=== PATIENT | male | born 1960 | race Caucasian/White ===

== ENCOUNTER 2023-08-10 07:55 | Outpatient (OUT) | payer OTHER, SELFPAY ==
[2023-08-10 08:31] LABS: Estimated Average Glucose 180 mg/dL; Glycohemoglobin A1C 7.9 % (4.5-6.2)
[2023-08-10 12:57] LABS: Prostate Specific Antigen Dx 1.15 ng/mL (<=4.00)
== END 2023-08-10 07:56 | disposition home or self-care (01) ==
PROVIDERS: PCP Family Medicine; Visit Provider Family Medicine
DX: E11.65 Type 2 diabetes mellitus with hyperglycemia (principal); Z12.5 Encounter for screening for malignant neoplasm of prostate
CPT/HCPCS: 36415; 83036; 84153

== ENCOUNTER 2024-01-25 08:10 | Outpatient (OUT) | payer OTHER, SELFPAY ==
--- OUTSIDE RECORDS SUMMARY | 2024-01-25 08:15 | XMS_ITS | CCD ---
Author Organization [facility] Care Team Providers Care Printing Bindery Assistant Name Role Phone MEGAN MATIAS Unavailable Unavailable NADERERROBERTO Unavailable Unavailkam e MEGAN MATIAS Unavailable Unavailable MEGAN MATIAS Unavailable Unavailable NADERER, ROBERTO METZ Unavailable Unavailabl e NADERER, DR ROBERTO Esteves Primary Care Unavailable BRIGIDO, DR LLOYD Attending Unavailable BRIGIDO, DR LLOYD Admitting Unavailable NADERER, DR ROBERTO Esteves Consulting Unavailable NADERER, DR ROBERTO Esteves Primary Care Unavailable NADERER, DR ROBERTO Esteves Admitting Unavailable NADERER, DR ROBERTO Esteves Attending Unavailable NADERER, DR ROBERTO Esteves Attending Unavailable NADERER, DR ROBERTO Esteves Consulting Unavailable NADERER, DR ROBERTO Esteves Primary Care Unavailable NADERER, DR ROBERTO Esteves Admitting Unavailable EBEN, Ivanna Morgan Attending Unavailable EBEN, LAWRENCE Morgan Admitting Unavailable KIAH, Gabe Attending Unavailable EBEN, Ivanna Morgan Attending Unavailable NADERER, ROBERTO Attending Unavailable NADERER, ROBERTO Attending Unavailable Allergies Allergy Classification Reported Allergen(s) Allergy Type Date of Onset Reaction(s) Facility (1 source) Angiotensin Converting Enzyme (Latrell) Inhibitors Drug allergy (disorder) 03-01-2016 [facility] Problems Active Problems Problem Classification Problem Date Documented Da te Episodic/Chronic Diabetes mellitus with complications (5 sources) Type 2 diabetes mellitus with hyperglycemia; Translations: [TYPE 2 DM W/HYPERGLYCEMIA] Onset: 04-22-2022 Chronic Nutritional deficiencies (1 source) Vitamin D deficiency, unspecified; Translations: [VITAMIN D DEFICIENCY UNSPECIFIED] Onset: 04-22-2022 Chronic Past or Other Problems Problem Classification Problem Date Documented Date Episodic/Chronic Medical examination/evaluatio n (2 sources) Encounter for other preprocedural examination; Translations: [Encounter for other preprocedural examination] Onset: 10-09-2017 Episodic Other nervous system disorders (1 source) Other acute postprocedural pain; Translations: [Other acute postprocedural pain] Onset: 10-21-2017 Episodic Results Test Name Value Interpretation Reference Range Facility [place] 03-07-2023 Consent [id number]#1.00CD:12 7 [facility] Registrationon 03-07-2023 Registration [id number]#1.00CD:12 7 [facility] [place] 12-17-2022 Consent [id number]#1.00CD:1 27 [facility] In office Testingon 12-18-19 23 In office Testing [id number]#1.00CD:12 7 [facility] In office Testing [id number]#1.00CD:12 7 [facility] Registrationon 12-17-2022 Registration [id number]#1.00CD:1 27 [facility] GLYCOHEMOGLOBIN A1Con 2022 ADA RECOMMENDATION SEE BELOW Normal [facility] Comment on above: Result Comment: ADA RECOMMENDED LIMIT 4.0 - 6.0 ADA THERAPEUTIC TARGET < 7.0 ACTION SUGGESTED > 7.0 Performed By: #### A 1C #### [facility] [address] [address] [address] Kelton Ludwig Glucose [Mass/Vol] 263 mg/dL Normal [facility] Comment on above: Performed By: #### A 1C #### [facility] [address], [place] [address] Dr. Kelton Ludwig HbA1c (Bld) [Mass fraction] 10.8 % Critically high 4.5-6.2 [facility] Comment on above: Performed By: #### A 1C #### [facility] [address] [address] [address] Kelton Ludwig [place] 06-18-2022 Consent [id number]#1.00CD:12 7 Normal [facility] In office Testingon 06-18-20 22 In office Testing [id number]#1.00CD:1 27 Normal [facility] Registrationon 06-18-2022 Registration [id number]#1.00CD:12 7 Normal [facility] MICROALBUMIN URINEon 022 Albumin, Urine 32.3 ug/mL Normal Not Estab. [facility] Comment on above: Performed By: #### M ALBLC #### [facility] [address] [address] [address] Kelton Ludwig VIT D 25-OH LABCORPon 2021 Vitamin D, 25-Hydroxy 37.9 ng/mL Normal 30.0-100.0 [facility] Comment on above: Result Comment: Hemalatha min D deficiency has been defined by the [place] of Medicine and an Endocrine Society practice guideline as a level of serum 25-OH vitamin D less than 20 ng/mL (1,2). The Endocrine Society went on to further define vitamin D insufficiency as a level between 21 and 29 ng/mL (2). 1. IOM ([place] of Medicine). 2010. Dietary reference intakes for calcium and D. [place]: The National Academies Press. 2. German MF, Arturo NC, Dolores WAYNE, et al. Evaluation, treatment, and prevention of vitamin D deficiency: an Endocrine Society clinical practice guideline. JCEM. 2010; 96(7):1911-30. Performed By: #### V ITADLC #### [facility] [address], [place] [address] Dr. Kelton Ludwig CBC AUTO DIFFon 04-19-2022 BASO # 0.0 103/ul Normal 0.0-0.1 [facility] Comment on above: Performed By: #### C BC #### [facility] [address], [place] [address] Dr. Kelton Ludwig Basophils/100 WBC (Bld) 0.6 % Normal 0.2-2.0 [facility] Comment on above: Performed By: #### C BC #### [facility] [address] [place] [address] Dr. Kelton Ludwig EO # 0.3 103/ul Normal 0.0-0.7 [facility] Comment on above: Performed By: #### C BC #### [facility] [address] [place] [address] Dr. Kelton Ludwig Eosinophils/100 WBC (Bld) 3.5 % Normal 0.9-7.0 [facility] Comment on above: Performed By: #### C BC #### [facility] [address] [place] [address] Dr. Kelton Ludwig Erythrocyte distribution width (RBC) [Ratio] 12.6 % Normal 11.0-15.0 [facility] Comment on above: Performed By: #### C BC #### [facility] [address] [place] [address] Dr. Kelton Ludwig Hematocrit (Bld) [Volume fraction] 44.6 % Normal 42.0-54.0 [facility] Comment on above: Performed By: #### C BC #### [facility] [address] [place] [address] Dr. Kelton Ludwig Hemoglobin (Bld) [Mass/Vol] 14.1 g/dL Normal 14.0-18.0 [facility] Comment on above: Performed By: #### C BC #### [facility] [address] [place] [address] Dr. Kelton Ludwig IG # 0.03 10e3/ul Normal 0.00-0.03 [facility] Comment on above: Performed By: #### C BC #### [facility] [address] [place] [address] Dr. Kelton Ludwig IG % 0.4 % Normal 0.0-0.5 [facility] Comment on above: Performed By: #### C BC #### [facility] [address] [place] [address] Dr. Kelton Ludwig LYMPH # 1.2 103/ul Normal 1.2-3.8 [facility] Comment on above: Performed By: #### C BC #### [facility] [address] [place] [address] Dr. Kelton Ludwig Lymphocytes/100 WBC (Bld) 16.9 % Critically low 20.5-60.0 [facility] Comment on above: Performed By: #### C BC #### [facility] [address] [place] [address] Dr. Kelton Ludwig MANUAL DIFF REQ NO Normal [facility] Comment on above: Performed By: #### C BC #### [facility] [address] [place] [address] Dr. Kelton Ludwig MCH (RBC) [Entitic mass] 29.7 pg Normal 25.9-34.0 [facility] Comment on above: Performed By: #### C BC #### [facility] [address] [place] [address] Dr. Kelton Ludwig MCHC (RBC) [Mass/Vol] 31.6 g/dL Normal 29.9-35.2 [facility] Comment on above: Performed By: #### C BC #### [facility] [address] [place] [address] Dr. Kelton Ludwig MCV (RBC) [Entitic vol] 94.1 fL Critically high 80.0-94.0 [facility] Comment on above: Performed By: #### C BC #### [facility] [address] [place] [address] Dr. Kelton Ludwig MONO # 0.5 103/ul Normal 0.3-0.8 [facility] Comment on above: Performed By: #### C BC #### [facility] [address] [place] [address] Dr. Kelton Ludwig Monocytes/100 WBC (Bld) 7.3 % Normal 1.7-12.0 [facility] Comment on above: Performed By: #### C BC #### [facility] [address] [place] [address] Dr. Kelton Ludwig NEUT # 5.1 103/ul Normal 1.4-6.5 [facility] Comment on above: Performed By: #### C BC #### [facility] [address] [address] [address] Kelton Ludwig Neutrophils/100 WBC (Bld) 71.3 % Normal 43.0-75.0 [facility] Comment on above: Performed By: #### C BC #### [facility] [address] [address] [address] Kelton Ludwig Platelet mean volume (Bld) [Entitic vol] 10.3 fL Normal 9.5-13.5 [facility] Comment on above: Performed By: #### C BC #### [facility] [address] [address] [address] Kelton Ludwig PLT 221 103/ul Normal 150-450 [facility] Comment on above: Performed By: #### C BC #### [facility] [address] [place] [address] Dr. Kelton Ludwig RBC 4.74 106/ul Normal 4.70-6.10 [facility] Comment on above: Performed By: #### C BC #### [facility] [address] [place] [address] Dr. Kelton Ludwig WBC 7.1 103/ul Normal 4.0-11.0 [facility] Comment on above: Performed By: #### C BC #### [facility] [address] [place] [address] Dr. Kelton Ludwig GLYCOHEMOGLOBIN A1Con 2021 ADA RECOMMENDATION SEE BELOW Normal [facility] Comment on above: Result Comment: ADA RECOMMENDED LIMIT 4.0 - 6.0 ADA THERAPEUTIC TARGET < 7.0 ACTION SUGGESTED > 7.0 Performed By: #### A 1C #### [facility] [address] [place] [address] Dr. Kelton Ludwig Glucose [Mass/Vol] 194 mg/dL Normal [facility] Comment on above: Performed By: #### A 1C #### [facility] [address] [place] [address] Dr. Kelton Ludwig HbA1c (Bld) [Mass fraction] 8.4 % Critically high 4.5-6.2 [facility] Comment on above: Performed By: #### A 1C #### [facility] [address] [address] [address] Kelton Ludwig LIPID PROFILEon 04-19-2022 CHOL-HDL RATIO NORM SEE BELOW Normal [facility] Comment on above: Result Comment: 3.3 - 4.4 LOW RISK 4.4 - 7.1 AVERAGE RISK 7.1 - 11.0 MODERATE RISK >11.0 HIGH RISK Performed By: #### T SH, LIPID, BMP, LIVER #### [facility] [address] [address] [address] Kelton Ludwig Cholesterol [Mass/Vol] 179 mg/dL Normal <=200 [facility] Comment on above: Performed By: #### T SH, LIPID, BMP, LIVER #### [facility] [address] [address] [address] Kelton Ludwig Cholesterol in HDL [Mass/Vol] 49 mg/dL Normal 40-60 [facility] Comment on above: Performed By: #### T SH, LIPID, BMP, LIVER #### [facility] [address] [address] [address] Kelton Ludwig Cholesterol in LDL [Mass/Vol] 118.4 mg/dL Normal [facility] Comment on above: Performed By: #### T SH, LIPID, BMP, LIVER #### [facility] [address] [address] [address] Kelton Ludwig Cholesterol.total/C holesterol in HDL [Mass ratio] 3.7 {ratio} Normal [facility] Comment on above: Performed By: #### T SH, LIPID, BMP, LIVER #### [facility] [address] [address] [address] Kelton Ludwig HDL NORMAL > or = 60 mg/dl - LO W CARDIOVASCULAR RISK <40 mg/dl - HIGH CARDIOVASCULAR RISK Normal [facility] Comment on above: Performed By: #### T SH, LIPID, BMP, LIVER #### [facility] [address] [address] [address] Kelton Ludwig LDL CALC NORMAL SEE BELOW Normal [facility] Comment on above: Result Comment: <100 mg/dl OPTIMAL 100 - 129 mg/dl NEAR OR ABOVE OPTIMAL 130 - 159 mg/dl BORDERLINE HIGH 160 - 189 mg/dl HIGH >190 mg/dl VERY HIGH Performed By: #### T SH, LIPID, BMP, LIVER #### [facility] [address] [place] [address] Dr. Kelton Ludwig Triglyceride [Mass/Vol] 58 mg/dL Normal <=150 [facility] Comment on above: Performed By: #### T SH, LIPID, BMP, LIVER #### [facility] [address] [place] [address] Dr. Kelton Ludwig VLDL CALC 11.6 mg/dL Normal [facility] Comment on above: Performed By: #### T SH, LIPID, BMP, LIVER #### [facility] [address] [place] [address] Dr. Kelton Ludwig LIVER PROFILEon 04-19-2022 Albumin [Mass/Vol] 3.8 g/dL Normal 3.4-5.0 [facility] Comment on above: Performed By: #### T SH, LIPID, BMP, LIVER #### [facility] [address] [place] [address] Dr. Kelton Ludwig Albumin/Globulin [Mass ratio] 1.3 {ratio} Normal [facility] Comment on above: Performed By: #### T SH, LIPID, BMP, LIVER #### [facility] [address] [place] [address] Dr. Kelton Ludwig ALP [Catalytic activity/Vol] 51 U/L Normal 46-116 [facility] Comment on above: Performed By: #### T SH, LIPID, BMP, LIVER #### [facility] [address] [place] [address] Dr. Kelton Ludwig ALT [Catalytic activity/Vol] 18 U/L Normal 16-63 [facility] Comment on above: Performed By: #### T SH, LIPID, BMP, LIVER #### [facility] [address] [place] [address] Dr. Kelton Ludwig AST [Catalytic activity/Vol] 12 U/L Critically low 15-37 [facility] Comment on above: Performed By: #### T SH, LIPID, BMP, LIVER #### [facility] [address] [place] [address] Dr. Kelton Ludwig BILI, CONJUGATED 0.2 mg/dL Normal 0.0-0.2 [facility] Comment on above: Performed By: #### T SH, LIPID, BMP, LIVER #### [facility] [address] [place] [address] Dr. Kelton Ludwig Bilirubin [Mass/Vol] 0.6 mg/dL Normal 0.2-1.0 [facility] Comment on above: Performed By: #### T SH, LIPID, BMP, LIVER #### [facility] [address] [place] [address] Dr. Kelton Ludwig Globulin (S) [Mass/Vol] 3.0 g/dL Normal [facility] Comment on above: Performed By: #### T SH, LIPID, BMP, LIVER #### [facility] [address] [place] [address] Dr. Kelton Ludwig Protein [Mass/Vol] 6.8 g/dL Normal 6.4-8.[address] [facility] Comment on above: Performed By: #### T SH, LIPID, BMP, LIVER #### [facility] [address] [place] [address] Dr. Kelton Ludwig PROF CHEM 8 (BAS METB)on Anion gap [Moles/Vol] 8.2 mmol/L Normal [facility] Comment on above: Performed By: #### T SH, LIPID, BMP, LIVER #### [facility] [address] [place] [address] Dr. Kelton Ludwig Calcium [Mass/Vol] 8.9 mg/dL Normal 8.5-10.[address] [facility] Comment on above: Performed By: #### T SH, LIPID, BMP, LIVER #### [facility] [address] [place] [address] Dr. Kelton Ludwig Chloride [Moles/Vol] 104 mmol/L Normal 98-107 [facility] Comment on above: Performed By: #### T SH, LIPID, BMP, LIVER #### [facility] [address] [address] [address] Kelton Ludwig CO2 [Moles/Vol] 31.2 mmol/L Normal 21.0-32.0 [facility] Comment on above: Performed By: #### T SH, LIPID, BMP, LIVER #### [facility] [address] [address] [address] Kelton Ludwig Creatinine [Mass/Vol] 1.08 mg/dL Normal 0.70-1.30 [facility] Comment on above: Performed By: #### T SH, LIPID, BMP, LIVER #### [facility] [address] [address] [address] Kelton Ludwig EGFR-AF NIGERIAN >60 Normal >=60 [facility] Comment on above: Performed By: #### T SH, LIPID, BMP, LIVER #### [facility] [address] [place] [address] Dr. Kelton Ludwig EGFR-NON AF NIGERIAN >60 Normal >=60 [facility] Comment on above: Performed By: #### T SH, LIPID, BMP, LIVER #### [facility] [address] [address] [address] Kelton Ludwig Glucose [Mass/Vol] 171 mg/dL Critically high 74-106 [facility] Comment on above: Performed By: #### T SH, LIPID, BMP, LIVER #### [facility] [address] [address] [address] Kelton Ludwig Potassium [Moles/Vol] 4.4 mmol/L Normal 3.5-5.1 [facility] Comment on above: Performed By: #### T SH, LIPID, BMP, LIVER #### [facility] [address] [address] [address] Kelton Ludwig Sodium [Moles/Vol] 139 mmol/L Normal 136-145 [facility] Comment on above: Performed By: #### T SH, LIPID, BMP, LIVER #### [facility] [address] [address] [address] Kelton Ludwig Urea nitrogen [Mass/Vol] 20.0 mg/dL Critically high 7.0-18.0 [facility] Comment on above: Performed By: #### T SH, LIPID, BMP, LIVER #### [facility] [address], [place] [address] Dr. Kelton Ludwig Urea nitrogen/Creatinine [Mass ratio] 18.5 mg/mg Normal [facility] Comment on above: Performed By: #### T SH, LIPID, BMP, LIVER #### [facility] [address], [place] [address] Dr. Kelton Ludwig TSHon 04-19-2022 TSH 0.837 uIU/mL Normal 0.358-3.740 [facility] Comment on above: Performed By: #### T SH, LIPID, BMP, LIVER #### [facility] [address], [place] [address] Dr. Kelton Ludwig Progress Noteon 03-31-2018 HIM IP Note OR Global Account Director Normal [facility] HIM IP Note OR Global Account Director Normal [facility] Progress Noteon 01-03-2018 HIM IP Note OR Global Account Director Normal [facility] Progress Noteon 12-23-2017 HIM IP Note OR Global Account Director Normal [facility] Progress Noteon 12-09-2017 HIM IP Note OR Global Account Director Normal [facility] Progress Noteon 12-06-2017 HIM IP Note OR Global Account Director Normal [facility] Discharge Summaryon 10-23-19 18 HIM IP Note OR Global Account Director Normal [facility] Plan of Careon 10-22-2017 HIM IP Note OR Global Account Director Normal [facility] HIM IP Note OR Global Account Director Normal [facility] Progress Noteon 10-22-2017 HIM IP Note OR Global Account Director Normal [facility] HIM IP Note OR Global Account Director Normal [facility] Interval History and Physion 10-21-2017 HIM IP Note OR Global Account Director Normal [facility] OPERATIVE REPORTon 8 OPERATIVE REPORT [address] [id number] OPERATIVE REPORTPATIENT NAME: SANTO PHIPPS : 1960[facility] REC NO: [id number] ROOM: [address] [place] [address] NO: [id number] ADMIT DATE: 10/21/2017PROVIDER: Megan Matias, MDDATE OF PROCEDURE: 10/21/2017SURGEON: Megan Matias MDASSISTANT: MARU DianaREOPERATIVE DIAGNOSES:1. Severe spinal stenosis, C6-C7, with left radiculopathy.2. Cervical myeloradiculopathy secondary to central stenosis.3. Morbid obesity, BMI 38.POSTOPERATIVE DIAGNOSES:1. Severe spinal stenosis, C6-C7, with left radiculopathy.2. Cervical myeloradiculopathy secondary to central stenosis.3. Morbid obesity, BMI 38.PROCEDURES PERFORMED:1. Anterior cervical diskectomy, C6-C7.2. Cervical osteophyte and foraminal decompression, C6-C7, left.3. Anterior cervical fusion, C6-C7.4. Coalition cage stabilization, C6-C7.5. Allograft with Osteocel Plus.INDICATIONS: The patient is a 57-year-old gentleman with significant pain,early myelopathy symptoms, and significant radiculopathy due to significantnarrowing stenosis across the C6-C7 level. Based on MRI scan, stenosiswith large hard disk herniation, significant narrowing of the canalresulting in moderately severe compression across the entire left cord.Due to significant pain and symptoms, failure of nonoperative treatmentprogram, presents for surgical treatment. Surgical procedure, risks,benefits, and complications were discussed with him with goodcomprehension, and informed consent obtained.NARRATIVE OF PROCEDURE: The patient was brought to the operating room,placed under appropriate general anesthesia, transferred to the operatingtable in the supine position. Towel roll was placed under the neck andshoulders, arms secured at the side, and perioperative antibiotics givenprior to incision time. VTE prophylaxis done through SCD cuffs.Timeout performed. We identified his cricothyroid membrane, made incisionapproximately 2 cm below that. Skin incised sharply and bleederscoagulated. Dissection carried down trying to identify the underlyingtissue planes. The patient due to his morbid obesity had very large neck,significant soft tissue mass, with very hypertrophic tissues. We were ableto get down to the prevertebral space and try to identify the level basedon x-ray. Very difficult time visualizing, multiple films obtained, withvarious techniques to try to penetrate through the soft tissues. We hadarm slings tied to his hands to further provide traction, and we couldidentify just at the C5-C6 space. Our intraoperative x-ray confirmed thatas the level. So we then marked down to C6-C7. We then elevated thelongus colli off each margin and placed our table-mounted retractor tosecure that. We made sure the tracheoesophagus was well mobilized,midline, without tension.At this time, we then did annulotomy across the disk space and identifiedthe angle of the disk space. We then placed our Shiloh pins to mobilizethe space. We gently distracted that. Once the annulotomy done, we thendid a complete diskectomy removing all the endplate cartilage and disk fromthe uncinate joint, right and left, back to the posterior longitudinalligament. There was a cleft and rent through the area, midline asexpected. So we then went to the right side, used a 3-mm kevin to takedown the margins of the uncinate and the posterior margins of the superiorportion of 6. We also took down the superior portion of 7, the inferiorportion of 6, and then got to the PLL. Took down a portion of that to themidline and got to the cord. We then used the 3-mm kevin bur, withirrigation, to fully thin the entire osteophyte and mass pressure along theentire left les-cord. We took down the lateral fourth of the uncinatejoint also, this tracing out free. We then undercut with 1-mm Kerrison andpulled it away from the dura.Once we had a good decompression, we could easily pass the small elevatoraround the dura without any other fragments or remaining material.We then let our traction off our pins, measured the interspace, andselected a 7-mm size. We used the XXL implant due to the patient's largesize and obesity.We sized that to the seven, then rasped the endplates to get goodsubchondral bleeding bone, and we then packed that full of the Osteocelgraft. We used some of the autogenous pieces as an endplate pack. We thengently tamped it into position with a good fit and fixation. This openedup the neural foramen well. We then placed screws cephalad and caudal,securing it, and used a locking screw to lock into place. Final x-ray,again difficulty visualizing with several films, to identify the level. Wewere able to find the endplate, it seemed to be positioned well.At this time, there was no evidence of significant bleeding at all. Yoandyhen packed a little bit more graft anteriorly along the endplate. We thenclosed the platysma over a drain using 2-0 Vicryl. 4-0 Vicryl subcuticularin the skin. Dressing applied. The patient transferred to bed, awokenfrom anesthesia, and brought to recovery room.MEGAN MATIAS, MDD: 10/21/2017 10:38:52 [email or web address]#: [id number] Doc#: [id number]: Megan Matias MD Normal [facility] Op Noteon 10-21-2017 HIM IP Note OR Global Account Director Normal [facility] Progress Noteon 10-21-2017 HIM IP Note OR Global Account Director Normal [facility] HIM IP Note OR Global Account Director Normal [facility] HIM IP Note OR Global Account Director Normal [facility] XR CERVICAL SPINE 1 VWon XR CERVICAL SPINE 1 VW Radiology exam is complete. No Radiologist dictation. Please follow up with ordering provider. Final result Normal [facility] Protein mass conc EXAMINATION:1 VIEW O F THE CERVICAL SPINE10/21/2017 8:43 amCOMPARISON:None.HISTORY :ORDERING SYSTEM PROVIDED HISTORY: Fusion C6-7TECHNOLOGIST PROVIDED HISTORY:Reason for exam:->Fusion C6-7FINDINGS:Single cross-table lateral intraoperative radiograph of the cervical spinewas obtained. There is a radiopaque marker at the anterior aspect C5-C6disc. Straightening of the cervical spine. C5-C6 degenerative disc disease.The patient is intubated.IMPRESSION: Intraoperative radiograph of the cervical spine demonstrates marker at theanterior C5-C6 disc.Findings were discussed with nurse Osborne in the operative room at 8:49 a.m.on 10/21/2017Interpreted by:GLORIA Sheldonigned by:Judy Mendez MD3/19/18Final result Normal [facility] XR CERVICAL SPINE 1 VW Radiology exam is complete. No Radiologist dictation. Please follow up with ordering provider. Final result Normal [facility] BUN + Creatinineon 8 (cont.) Normal [facility] Comment on above: Result Comment: Aver age GFR for 50-59 years old: 93 mL/min/1.73sq mChronic Kidney Disease: <60 mL/min/1.73sq mKidney failure: <15 mL/min/1.73sq meGFR calculated using average adult body mass. Additional eGFR calculator available at:[email or web address]_[email or web address] [address] Performed By: #### B UNCRT, GLU, LYTE ####[facility] [address] [place] [id number] Creatinine mass conc 0.75 mg/dL Normal 0.70-1.20 [facility] Comment on above: Performed By: #### B UNCRT, GLU, LYTE ####[facility] [address] [place] [address] GFR, Amer >60 Normal >60 [facility] Comment on above: Performed By: #### B UNCRT, GLU, LYTE ####[facility] [address] [place] [address] GFR,non Amer >60 Normal >60 [facility] Comment on above: Performed By: #### B UNCRT, GLU, LYTE ####[facility] [address] [place] [address] Urea nitrogen mass conc 10 mg/dL Normal 6-20 [facility] Comment on above: Performed By: #### B UNCRT, GLU, LYTE ####[facility] [address] [place] [address] Staging: NOT REPORTED Normal [facility] Comment on above: Performed By: #### B UNCRT, GLU, LYTE ####[facility] [address] [place] [address] Electrolyteson 10-09-2017 Anion gap 3 molar conc 11 mmol/L Normal 9-17 [facility] Comment on above: Result Comment: [facility] [address] [place] [address] Performed By: #### B UNCRT, GLU, LYTE ####[facility] [address] [place] [address] Chloride molar conc 101 mmol/L Normal 98-107 [facility] Comment on above: Performed By: #### B UNCRT, GLU, LYTE ####[facility] [address] [place] [address] CO2 molar conc 27 mmol/L Normal 20-31 [facility] Comment on above: Performed By: #### B UNCRT, GLU, LYTE ####[facility] [address] [place] [address] Potassium molar conc 4.0 mmol/L Normal 3.7-5.3 [facility] Comment on above: Performed By: #### B UNCRT, GLU, LYTE ####[facility] [address] [place] [address] Sodium molar conc 139 mmol/L Normal 135-144 [facility] Comment on above: Performed By: #### B UNCRT, GLU, LYTE ####[facility] [address] [place] [address] Glucoseon 10-09-2017 Glucose mass conc 149 mg/dL High 70-99 [facility] Comment on above: Result Comment: [facility] [address] [place] [address] Performed By: #### B UNCRT, GLU, LYTE ####[facility] [address] [place] [address] History and Physicalon 10-09 HIM IP Note OR Global Account Director Normal [facility] Progress Noteon 10-09-2017 HIM IP Note OR Global Account Director Normal [facility] Encounters Encounter Date Encounter Type Care Provider Facility Start: 01-01-2024 End: 01-01-2024 ambulatory ROBERTO BANG Not Available Start: 10-16-2023 End: 10-16-2023 ambulatory ROBERTO BANG Not Available Start: 03-07-2023 End: 03-08-2023 ambulatory Gabe DUPONT [facility] Start: 12-17-2022 End: 12-18-2022 ambulatory Ivanna TREADWELL [facility] Start: 11-28-2022 End: 11-29-[address] ROBERTO BANG Facility:[facility] Start: 07-10-[address] ROBERTO BANG [facility]y:[facility] Start: 06-18-2022 End: 06-19-2022 ambulatory Ivanna TREADWELL [facility] Start: 04-22-2022 Encounter for genera l adult medical examination without abnormal findings DR ROBERTO BANG [facility] Start: 04-19-2022 End: 04-20-[address] ROBERTO BANG Facility:[facility] Start: 04-19-2022 End: 04-20-2022 Encounter for general adult medical examination without abnormal findings DR ROBERTO BANG Facility:[facility] Start: 10-21-2017 End: 10-22-2017 Evaluation and management of inpatient MEGAN MATIAS [facility] Start: 10-09-2017 End: 10-14-2017 Patient encounter MEGAN ESQUIVELJACOB [facility] Procedures Date Procedure Procedure Detail Performing Clinician Start: 04-19-[address] ROBERTO SANCHEZ Comment on above: Performed By: #### P [facility] #### [facility] [address] [place] [address] Dr. Kelton Ludwig Start: 10-22-2017 DISCHARGE PATIENT KAYLIN Lyons JOEL Start: 10-22-2017 POC GLUCOSE FINGERSTICK MEGAN ALVINSAIMA Start: 10-22-2017 POC GLUCOSE FINGERSTICK MEGAN MATIAS Start: 10-22-2017 INCENTIVE SPIROMETRY RT MEGAN MATIAS Start: 10-22-2017 INITIATE OXYGEN THER APY PROTOCOL MEGAN MATIAS Start: 10-22-2017 POC GLUCOSE FINGERSTICK MEGAN MATIAS Start: 10-21-2017 POC GLUCOSE FINGERSTICK MEGAN MATIAS Start: 10-21-2017 ENCOURAGE DEEP BREAT [place] AND COUGHING MEGAN MATIAS Start: 10-21-2017 INCENTIVE SPIROMETRY RT MEGAN MATIAS Start: 10-21-2017 IP CONSULT TO SOCIAL WORK MEGAN MATIAS Start: 10-21-2017 OT EVAL AND TREAT KAYLIN Lyons JOEL Start: 10-21-2017 PLACE INTERMITTENT P NEUMATIC COMPRESSION DEVICE MEGAN MATIAS Start: 10-21-2017 PT EVAL AND TREAT KAYLIN Lyons JOEL Start: 10-21-2017 PULSE OXIMETRY SPOT CHECK MEGAN MATIAS Start: 10-21-2017 REASON FOR NO CHEMIC AL VTE PROPHYLAXIS MEGAN MATIAS Start: 10-21-2017 DIET GENERAL VINCENT Start: 10-21-2017 FULL CODE VINCENT Start: 10-21-2017 INITIATE OXYGEN THER APY PROTOCOL MEGAN MATIAS Start: 10-21-2017 VITAL SIGNS VINCENT Start: 10-21-2017 POC GLUCOSE FINGERSTICK MEGAN MATIAS Start: 10-21-2017 PATIENT STATUS (FROM ED OR OR/PROCEDURAL) MEGAN MATIAS Start: 10-21-2017 TRANSFER PATIENT MEGAN MATIAS Start: 10-21-2017 Radex spine 1 view s pecify level MEGAN MATIAS Start: 10-21-2017 Radex spine 1 view s pecify level MEGAN MATIAS Start: 10-21-2017 POC GLUCOSE FINGERSTICK MEGAN MATIAS Start: 10-09-2017 BUN AND CREATININE BLAKE MATIAS Start: 10-09-2017 ELECTROLYTE PANEL KAYLIN MATIAS Start: 10-09-2017 GLUCOSE, RANDOM MEGAN MATIAS Start: 10-09-2017 NURSING COMMUNICATION T NATO MATIAS Start: 10-09-2017 EKG 12-LEAD VINCENT Payers Date Payer Category Payer Unknown [id number] 2022 Unknown [id number] 2014 Unknown [id number] 1960 Private Health Insurance [id number] Self-pay 1960 Unknown [id number] 2.16.84 [id number] 1959 Unknown [id number] 2.16.84 [id number] 1959 Unknown [id number] 2.16.84 [id number] 1959 Unknown [id number] 2.16.84 [id number] 1959 Unknown [id number] 2.16.84 [id number] Summary Purpose Family History No Family History Records FoundNo Family History Records FoundNo Family History Records FoundNo Family History Records Found Advance Directives No Advanced Directives Records FoundNo Advanced Directives Records FoundNo Advanced Directives Records FoundNo Advanced Directives Records Found Additional Source Comments (unrecognized sect ion and content) No Status Records FoundNo Status Records FoundNo Status Records FoundNo Status Records Found INFORMATION SOURCE (unrecogn ized section and content) DATE CREATED AUTHOR 04/02/2018 [facility] DATE CREATED AUTHOR AUTHOR'S ORGANIZ ATION 12/03/2022 [facility] DATE CREATED AUTHOR AUTHOR'S ORGANIZ ATION 03/08/2023 [facility] DATE CREATED AUTHOR AUTHOR'S ORGANIZ ATION 01/02/2024 [facility] FOR RECORDS PERTAINING TO PATIENTS WHO ARE OR HAVE BEEN ENROLLED IN A CHEMICAL DEPENDENCY/SUBSTANCEABUSE PROGRAM, SOME INFORMATION MAY BE OMITTED. This clinical summary was aggregated from multiple sources. Caution should be exercised in using it in the provision of clinical care. This summary normalizes information from multiple sources, and as a consequence, information in this document may materially change the coding, format and clinical context of patient data. In addition, data may be omitted in some cases. CLINICAL DECISIONS SHOULD BE BASED ON THE PRIMARY CLINICAL RECORDS. [facility] [facility] provides no warranty or guarantee of the accuracy or completeness of information in this document.
[2024-01-25 08:34] LABS: Basophils Absolute Auto 0.1 10^3/uL (0.0-0.1); Basophils Percent Auto 0.6 % (0.2-2.0); Eosinophils Absolute Auto 0.2 10^3/uL (0.0-0.7); Eosinophils Percent Auto 2.6 % (0.9-7.0); Hematocrit 44.7 % (42.0-54.0); Hemoglobin 14.4 g/dL (14.0-18.0); Immature Granulocytes Abs Auto 0.03 10^3/uL (0.00-0.03); Immature Granulocytes Pct Auto 0.3 % (0.0-0.5); Lymphocytes Absolute Auto 1.6 10^3/uL (1.2-3.8); Lymphocytes Percent Auto 17.6 % (20.5-60.0); Mean Corpuscular HGB Conc 32.2 g/dL (29.9-35.2); Mean Corpuscular Hemoglobin 30.3 pg (25.9-34.0); Mean Corpuscular Volume 93.9 fL (80.0-94.0); Mean Platelet Volume 10.1 fL (9.5-13.5); Monocytes Absolute Auto 0.6 10^3/uL (0.3-0.8); Monocytes Percent Auto 6.9 % (1.7-12.0); Neutrophils Absolute Auto 6.4 10^3/uL (1.4-6.5); Platelet Count 201 10^3/uL (150-450); Red Blood Count 4.76 10^6/uL (4.70-6.10); Red Cell Distribution Width 12.8 % (11.0-15.0); White Blood Count 8.9 10^3/uL (4.0-11.0)
[2024-01-25 08:40] LABS: Microalbumin Urine Random <1.3 mg/dL (<=30.0)
[2024-01-25 08:42] LABS: Estimated Average Glucose 237 mg/dL; Glycohemoglobin A1C 9.9 % (4.5-6.2)
[2024-01-25 09:29] LABS: Alanine Aminotransferase 27 U/L (16-63); Albumin Globulin Ratio 1.2; Albumin Level 3.7 g/dL (3.4-5.0); Alkaline Phosphatase 88 U/L (46-116); Anion Gap 13.7; Aspartate Amino Transferase 14 U/L (15-37); BUN Creatinine Ratio 17.6; Bilirubin Direct 0.2 mg/dL (0.0-0.2); Bilirubin Total 0.6 mg/dL (0.2-1.0); Calcium 8.8 mg/dL (8.5-10.1); Carbon Dioxide 28.6 mmol/L (21.0-32.0); Chloride 101 mmol/L (98-107); Chol HDL Ratio 2.2; Cholesterol 111 mg/dL (<=200); Estimated GFR (African America >60 (>=60); Estimated GFR (Non-African Ame 55 (>=60); Globulin 3.2 g/dL; Glucose 262 mg/dL (74-106); HDL Cholesterol 51 mg/dL (40-60); LDL Cholesterol Calculated 41.6 mg/dL; Potassium 4.3 mmol/L (3.5-5.1); Sodium 139 mmol/L (136-145); Thyroid Stimulating Hormone 1.375 uIU/mL (0.358-3.740); Total Protein 6.9 g/dL (6.4-8.2); Triglycerides 92 mg/dL (<=150); VLDL CHOLESTEROL 18.4 mg/dL
== END 2024-01-25 08:11 | disposition home or self-care (01) ==
PROVIDERS: PCP Family Medicine; Visit Provider Family Medicine
DX: E55.9 Vitamin D deficiency, unspecified (principal); E11.65 Type 2 diabetes mellitus with hyperglycemia; I10 Essential (primary) hypertension; Z79.899 Other long term (current) drug therapy; E78.5 Hyperlipidemia, unspecified; E66.9 Obesity, unspecified
CPT/HCPCS: 36415; 80048; 80061; 80076; 82043; 82306; 83036; 84443; 85025

== ENCOUNTER 2024-05-14 16:27 | Inpatient (IN) | payer OTHER, SELFPAY ==
[2024-05-14 16:30] VITALS: BP 135/73; PULSE 78; TEMP 37.1; O2SAT 98; BMI 33.5
--- OUTSIDE RECORDS SUMMARY | 2024-05-14 16:38 | XMS_ITS | CCD ---
Author Organization [facility] Care Team Providers Care Skidway Man Name Role Phone MEGAN MATIAS Unavailable Unavailable [...] (Latrell) Inhibitors Drug allergy (disorder) 03-01-2016 [facility] Repository Problems Active Problems Problem Classification Problem [...] Interpretation Reference Range Facility [place] 03-07-2023 Consent [id number]#1.00CD:12 7 [facility] Registrationon 03-07-2023 Registration [id number]#1.00CD:12 7 [facility] [place] 12-17-2022 Consent [id number]#1.00CD:1 27 [facility] In office Testingon 12-18-19 23 In office Testing [id number]#1.00CD:12 7 [facility] In office Testing [id number]#1.00CD:12 7 [facility] Registrationon 12-17-2022 Registration [id number]#1.00CD:1 27 [facility] GLYCOHEMOGLOBIN A1Con 2022 ADA RECOMMENDATION SEE BELOW Normal [facility] Comment on above: Result Comment: ADA RECOMMENDED LIMIT 4.0 - 6.0 ADA THERAPEUTIC TARGET < 7.0 ACTION SUGGESTED > 7.0 Performed By: #### A 1C #### [facility] [address] [address] [address] Kelton Ludwig Glucose [Mass/Vol] 263 mg/dL Normal [facility] Comment on above: Performed By: #### A 1C #### [facility] [address] [place], [place] [address] Dr. Kelton Ludwig HbA1c (Bld) [Mass fraction] 10.8 % Critically high 4.5-6.2 [facility] Comment on above: Performed By: #### A 1C #### [facility] [address] [address] [address] Kelton Ludwig [place] 06-18-2022 Consent [id number]#1.00CD:12 7 Normal [facility] In office Testingon 06-18-20 22 In office Testing [id number]#1.00CD:1 27 Normal [facility] Registrationon 06-18-2022 Registration [id number]#1.00CD:12 7 Normal [facility] MICROALBUMIN URINEon 022 Albumin, Urine 32.3 ug/mL Normal Not Estab. [facility] Comment on above: Performed By: #### M ALBLC #### [facility] [address] [address] [address] Kelton Ludwig VIT D 25-OH LABCORPon 2021 Vitamin D, 25-Hydroxy 37.9 ng/mL Normal 30.0-100.0 [facility] Comment on above: Result Comment: Hemalatha min D deficiency has been defined by the [place] of Medicine and an Endocrine Society practice guideline as a level of serum 25-OH vitamin D less than 20 ng/mL (1,2). The Endocrine Society went on to further define vitamin D insufficiency as a level between 21 and 29 ng/mL (2). 1. IOM ([place] of [employer]). 2010. Dietary reference intakes for calcium and D. [place]: The National Academies Press. 2. German MF, Arturo [place], Dolores WAYNE, et al. Evaluation, treatment, and prevention of vitamin D deficiency: an Endocrine Society clinical practice guideline. JCEM. 2010; 96(7):1911-30. Performed By: #### V ITADLC #### [facility] [address] [place], [place] [address] Dr. Kelton Ludwig CBC AUTO DIFFon 04-19-2022 BASO # 0.0 103/ul Normal 0.0-0.1 [facility] Comment on above: Performed By: #### C BC #### [facility] [address] [place], [place] [address] Dr. Kelton Ludwig Basophils/100 WBC (Bld) 0.6 % Normal 0.2-2.0 [facility] Comment on above: Performed By: #### C BC #### [facility] [address] [place] [address] Dr. Kelton Ludwig EO # 0.3 103/ul Normal 0.0-0.7 [facility] Comment on above: Performed By: #### C BC #### [facility] [address] [place] [address] Dr. Kelton Ludwig Eosinophils/100 WBC (Bld) 3.5 % Normal 0.9-7.0 [facility] Comment on above: Performed By: #### C BC #### [facility] [address] [place] [address] Dr. Kelton Ludwig Erythrocyte distribution width (RBC) [Ratio] 12.6 % Normal 11.0-15.0 [facility] Comment on above: Performed By: #### C BC #### [facility] [address] [place] [address] Dr. Kelton Ludwig Hematocrit (Bld) [Volume fraction] 44.6 % Normal 42.0-54.0 [facility] Comment on above: Performed By: #### C BC #### [facility] [address] [place] [address] Dr. Kelton Ludwig Hemoglobin (Bld) [Mass/Vol] 14.1 g/dL Normal 14.0-18.0 [facility] Comment on above: Performed By: #### C BC #### [facility] [address] [place] [address] Dr. Kelton Ludwig IG # 0.03 10e3/ul Normal 0.00-0.03 [facility] Comment on above: Performed By: #### C BC #### [facility] [address] [place] [address] Dr. Kelton Ludwig IG % 0.4 % Normal 0.0-0.5 [facility] Comment on above: Performed By: #### C BC #### [facility] [address] [place] [address] Dr. Kelton Ludwig LYMPH # 1.2 103/ul Normal 1.2-3.8 [facility] Comment on above: Performed By: #### C BC #### [facility] [address] [place] [address] Dr. Kelton Ludwig Lymphocytes/100 WBC (Bld) 16.9 % Critically low 20.5-60.0 [facility] Comment on above: Performed By: #### C BC #### [facility] [address] [place] [address] Dr. Kelton Ludwig MANUAL DIFF REQ NO Normal [facility] Comment on above: Performed By: #### C BC #### [facility] [address] [place] [address] Dr. Kelton Ludwig MCH (RBC) [Entitic mass] 29.7 pg Normal 25.9-34.0 [facility] Comment on above: Performed By: #### C BC #### [facility] [address] [place] [address] Dr. Kelton Ludwig MCHC (RBC) [Mass/Vol] 31.6 g/dL Normal 29.9-35.2 [facility] Comment on above: Performed By: #### C BC #### [facility] [address] [place] [address] Dr. Kelton Ludwig MCV (RBC) [Entitic vol] 94.1 fL Critically high 80.0-94.0 [facility] Comment on above: Performed By: #### C BC #### [facility] [address] [place] [address] Dr. Kelton Ludwig MONO # 0.5 103/ul Normal 0.3-0.8 [facility] Comment on above: Performed By: #### C BC #### [facility] [address] [place] [address] Dr. Kelton Ludwig Monocytes/100 WBC (Bld) 7.3 % Normal 1.7-12.0 [facility] Comment on above: Performed By: #### C BC #### [facility] [address] [place] [address] Dr. Kelton Ludwig NEUT # 5.1 103/ul Normal 1.4-6.5 [facility] Comment on above: Performed By: #### C BC #### [facility] [address] [address] [address] Kelton Ludwig Neutrophils/100 WBC (Bld) 71.3 % Normal 43.0-75.0 [facility] Comment on above: Performed By: #### C BC #### [facility] [address] [address] [address] Kelton Ludwig Platelet mean volume (Bld) [Entitic vol] 10.3 fL Normal 9.5-13.5 [facility] Comment on above: Performed By: #### C BC #### [facility] [address] [address] [address] Kelton Ludwig PLT 221 103/ul Normal 150-450 [facility] Comment on above: Performed By: #### C BC #### [facility] [address] [place] [address] Dr. Kelton Ludwig RBC 4.74 106/ul Normal 4.70-6.10 [facility] Comment on above: Performed By: #### C BC #### [facility] [address] [place] [address] Dr. Kelton Ludwig WBC 7.1 103/ul Normal 4.0-11.0 [facility] Comment on above: Performed By: #### C BC #### [facility] [address] [place] [address] Dr. Kelton Ludwig GLYCOHEMOGLOBIN A1Con 2021 ADA RECOMMENDATION SEE BELOW Normal [facility] Comment on above: Result Comment: ADA RECOMMENDED LIMIT 4.0 - 6.0 ADA THERAPEUTIC TARGET < 7.0 ACTION SUGGESTED > 7.0 Performed By: #### A 1C #### [facility] [address] [place] [address] Dr. Kelton Ludwig Glucose [Mass/Vol] 194 mg/dL Normal [facility] Comment on above: Performed By: #### A 1C #### [facility] [address] [place] [address] Dr. Kelton Ludwig HbA1c (Bld) [Mass fraction] 8.4 % Critically high 4.5-6.2 [facility] Comment on above: Performed By: #### A 1C #### [facility] [address] [address] [address] Kelton Ludwig LIPID PROFILEon 04-19-2022 CHOL-HDL RATIO NORM SEE BELOW Normal [facility] Comment on above: Result Comment: 3.3 - 4.4 LOW RISK 4.4 - 7.1 AVERAGE RISK 7.1 - 11.0 MODERATE RISK >11.0 HIGH RISK Performed By: #### T SH, LIPID, BMP, LIVER #### [facility] [address] [address] [address] Kelton Ludwig Cholesterol [Mass/Vol] 179 mg/dL Normal <=200 [facility] Comment on above: Performed By: #### T SH, LIPID, BMP, LIVER #### [facility] [address] [address] [address] Kelton Ludwig Cholesterol in HDL [Mass/Vol] 49 mg/dL Normal 40-60 [facility] Comment on above: Performed By: #### T SH, LIPID, BMP, LIVER #### [facility] [address] [address] [address] Kelton Ludwig Cholesterol in LDL [Mass/Vol] 118.4 mg/dL Normal [facility] Comment on above: Performed By: #### T SH, LIPID, BMP, LIVER #### [facility] [address] [address] [address] Kelton Ludwig Cholesterol.total/C holesterol in HDL [Mass ratio] 3.7 {ratio} Normal [facility] Comment on above: Performed By: #### T SH, LIPID, BMP, LIVER #### [facility] [address] [address] [address] Kelton Ludwig HDL NORMAL > or = 60 mg/dl - LO W CARDIOVASCULAR RISK <40 mg/dl - HIGH CARDIOVASCULAR RISK Normal [facility] Comment on above: Performed By: #### T SH, LIPID, BMP, LIVER #### [facility] [address] [address] [address] Kelton Ludwig LDL CALC NORMAL SEE BELOW Normal [facility] Comment on above: Result Comment: <100 mg/dl OPTIMAL 100 - 129 mg/dl NEAR OR ABOVE OPTIMAL 130 - 159 mg/dl BORDERLINE HIGH 160 - 189 mg/dl HIGH >190 mg/dl VERY HIGH Performed By: #### T SH, LIPID, BMP, LIVER #### [facility] [address] [place] [address] Dr. Kelton Ludwig Triglyceride [Mass/Vol] 58 mg/dL Normal <=150 [facility] Comment on above: Performed By: #### T SH, LIPID, BMP, LIVER #### [facility] [address] [place] [address] Dr. Kelton Ludwig VLDL CALC 11.6 mg/dL Normal [facility] Comment on above: Performed By: #### T SH, LIPID, BMP, LIVER #### [facility] [address] [place] [address] Dr. Kelton Ludwig LIVER PROFILEon 04-19-2022 Albumin [Mass/Vol] 3.8 g/dL Normal 3.4-5.0 [facility] Comment on above: Performed By: #### T SH, LIPID, BMP, LIVER #### [facility] [address] [place] [address] Dr. Kelton Ludwig Albumin/Globulin [Mass ratio] 1.3 {ratio} Normal [facility] Comment on above: Performed By: #### T SH, LIPID, BMP, LIVER #### [facility] [address] [place] [address] Dr. Kelton Ludwig ALP [Catalytic activity/Vol] 51 U/L Normal 46-116 [facility] Comment on above: Performed By: #### T SH, LIPID, BMP, LIVER #### [facility] [address] [place] [address] Dr. Kelton Ludwig ALT [Catalytic activity/Vol] 18 U/L Normal 16-63 [facility] Comment on above: Performed By: #### T SH, LIPID, BMP, LIVER #### [facility] [address] [place] [address] Dr. Kelton Ludwig AST [Catalytic activity/Vol] 12 U/L Critically low 15-37 [facility] Comment on above: Performed By: #### T SH, LIPID, BMP, LIVER #### [facility] [address] [place] [address] Dr. Kelton Ludwig BILI, CONJUGATED 0.2 mg/dL Normal 0.0-0.2 [facility] Comment on above: Performed By: #### T SH, LIPID, BMP, LIVER #### [facility] [address] [place] [address] Dr. Kelton Ludwig Bilirubin [Mass/Vol] 0.6 mg/dL Normal 0.2-1.0 [facility] Comment on above: Performed By: #### T SH, LIPID, BMP, LIVER #### [facility] [address] [place] [address] Dr. Kelton Ludwig Globulin (S) [Mass/Vol] 3.0 g/dL Normal [facility] Comment on above: Performed By: #### T SH, LIPID, BMP, LIVER #### [facility] [address] [place] [address] Dr. Kelton Ludwig Protein [Mass/Vol] 6.8 g/dL Normal 6.4-8.2 [facility] Comment on above: Performed By: #### T SH, LIPID, BMP, LIVER #### [facility] [address] [place] [address] Dr. Kelton Ludwig PROF CHEM 8 (BAS METB)on Anion gap [Moles/Vol] 8.2 mmol/L Normal [facility] Comment on above: Performed By: #### T SH, LIPID, BMP, LIVER #### [facility] [address] [place] [address] Dr. Kelton Ludwig Calcium [Mass/Vol] 8.9 mg/dL Normal 8.5-10.1 [facility] Comment on above: Performed By: #### T SH, LIPID, BMP, LIVER #### [facility] [address] [place] [address] Dr. Kelton Ludwig Chloride [Moles/Vol] 104 mmol/L Normal 98-107 [facility] Comment on above: Performed By: #### T SH, LIPID, BMP, LIVER #### [facility] [address] [address] [address] Kelton Ludwig CO2 [Moles/Vol] 31.2 mmol/L Normal 21.0-32.0 [facility] Comment on above: Performed By: #### T SH, LIPID, BMP, LIVER #### [facility] [address] [address] [address] Kelton Ludwig Creatinine [Mass/Vol] 1.08 mg/dL Normal 0.70-1.30 [facility] Comment on above: Performed By: #### T SH, LIPID, BMP, LIVER #### [facility] [address] [address] [address] Kelton Ludwig EGFR-AF PORTUGUESE >60 Normal >=60 [facility] Comment on above: Performed By: #### T SH, LIPID, BMP, LIVER #### [facility] [address] [place] [address] Dr. Kelton Ludwig EGFR-NON AF PORTUGUESE >60 Normal >=60 [facility] Comment on above: Performed By: #### T SH, LIPID, BMP, LIVER #### [facility] [address] [address] [address] Kelton Ludwig Glucose [Mass/Vol] 171 mg/dL Critically high 74-106 [facility] Comment on above: Performed By: #### T SH, LIPID, BMP, LIVER #### [facility] [address] [address] [address] Kelton Ludwig Potassium [Moles/Vol] 4.4 mmol/L Normal 3.5-5.1 [facility] Comment on above: Performed By: #### T SH, LIPID, BMP, LIVER #### [facility] [address] [address] [address] Kelton Ludwig Sodium [Moles/Vol] 139 mmol/L Normal 136-145 [facility] Comment on above: Performed By: #### T SH, LIPID, BMP, LIVER #### [facility] [address] [address] [address] Kelton Ludwig Urea nitrogen [Mass/Vol] 20.0 mg/dL Critically high 7.0-18.0 [facility] Comment on above: Performed By: #### T SH, LIPID, BMP, LIVER #### [facility] [address] [place], [place] [address] Dr. Kelton Ludwig Urea nitrogen/Creatinine [Mass ratio] 18.5 mg/mg Normal [facility] Comment on above: Performed By: #### T SH, LIPID, BMP, LIVER #### [facility] [address] [place], [place] [address] Dr. Kelton Ludwig TSHon 04-19-2022 TSH 0.837 uIU/mL Normal 0.358-3.740 [facility] Comment on above: Performed By: #### T SH, LIPID, BMP, LIVER #### [facility] [address] [place], [place] [address] Dr. Kelton Ludwig Progress Noteon 03-31-2018 HIM IP Note OR Automatic Spinning Lathe Operator Normal [facility] HIM IP Note OR Automatic Spinning Lathe Operator Normal [facility] Progress Noteon 01-03-2018 HIM IP Note OR Automatic Spinning Lathe Operator Normal [facility] Progress Noteon 12-23-2017 HIM IP Note OR Automatic Spinning Lathe Operator Normal [facility] Progress Noteon 12-09-2017 HIM IP Note OR Automatic Spinning Lathe Operator Normal [facility] Progress Noteon 12-06-2017 HIM IP Note OR Automatic Spinning Lathe Operator Normal [facility] Discharge Summaryon 10-23-19 18 HIM IP Note OR Automatic Spinning Lathe Operator Normal [facility] Plan of Careon 10-22-2017 HIM IP Note OR Automatic Spinning Lathe Operator Normal [facility] HIM IP Note OR Automatic Spinning Lathe Operator Normal [facility] Progress Noteon 10-22-2017 HIM IP Note OR Automatic Spinning Lathe Operator Normal [facility] HIM IP Note OR Automatic Spinning Lathe Operator Normal [facility] Interval History and Physion 10-21-2017 HIM IP Note OR Automatic Spinning Lathe Operator Normal [facility] OPERATIVE REPORTon 8 OPERATIVE REPORT [address] [id number] OPERATIVE REPORTPATIENT NAME: SANTO PHIPPS : 1960[facility] REC NO: [id number] ROOM: [address] [place] [address] NO: [id number] ADMIT DATE: 10/21/2017PROVIDER: Megan Matias, MDDATE OF [...] the disk space. We then placed our Waldo pins to mobilizethe space. We gently distracted [...] recovery room.MEGAN MATIAS, MDD: 10/21/2017 10:38:52 [id number]#: [id number] Doc#: [id number]: Megan Matias MD Normal [facility] Op Noteon 10-21-2017 HIM IP Note OR Automatic Spinning Lathe Operator Normal [facility] Progress Noteon 10-21-2017 HIM IP Note OR Automatic Spinning Lathe Operator Normal [facility] HIM IP Note OR Automatic Spinning Lathe Operator Normal [facility] HIM IP Note OR Automatic Spinning Lathe Operator Normal [facility] XR CERVICAL SPINE 1 VWon XR CERVICAL SPINE 1 VW Radiology exam is complete. No Radiologist dictation. Please follow up with ordering provider. Final result Normal [facility] Protein mass conc EXAMINATION:1 VIEW O F [...] by:GLORIA Sheldonigned by:Judy Mendez MD3/19/18Final result Normal [facility] XR CERVICAL SPINE 1 VW Radiology exam is complete. No Radiologist dictation. Please follow up with ordering provider. Final result Normal [facility] BUN + Creatinineon 8 (cont.) Normal [facility] Comment on above: Result Comment: Aver age GFR for 50-59 years old: 93 mL/min/1.73sq mChronic Kidney Disease: <60 mL/min/1.73sq mKidney failure: <15 mL/min/1.73sq meGFR calculated using average adult body mass. Additional eGFR calculator available at:[email or web address] [address] Performed By: #### B UNCRT, GLU, LYTE ####[facility] [address] [place] [address] Creatinine mass conc 0.75 mg/dL Normal 0.70-1.20 [facility] Comment on above: Performed By: #### B UNCRT, GLU, LYTE ####[facility] [address] [place] [address] GFR, Amer >60 Normal >60 [facility] Comment on above: Performed By: #### B UNCRT, GLU, LYTE ####[facility] [address] [place] [address] GFR,non Amer >60 Normal >60 [facility] Comment on above: Performed By: #### B UNCRT, GLU, LYTE ####[facility] [address] [place] [address] Urea nitrogen mass conc 10 mg/dL Normal 6-20 [facility] Comment on above: Performed By: #### B UNCRT, GLU, LYTE ####[facility] [address] [place] [address] Staging: NOT REPORTED Normal [facility] Comment on above: Performed By: #### B UNCRT, GLU, LYTE ####[facility] [address] [place] [address] Electrolyteson 10-09-2017 Anion gap 3 molar conc 11 mmol/L Normal 9-17 [facility] Comment on above: Result Comment: [facility] [address] [place] [address] Performed By: #### B UNCRT, GLU, LYTE ####[facility] [address] [place] [address] Chloride molar conc 101 mmol/L Normal 98-107 [facility] Comment on above: Performed By: #### B UNCRT, GLU, LYTE ####[facility] [address] [place] [address] CO2 molar conc 27 mmol/L Normal 20-31 [facility] Comment on above: Performed By: #### B UNCRT, GLU, LYTE ####[facility] [address] [place] [address] Potassium molar conc 4.0 mmol/L Normal 3.7-5.3 [facility] Comment on above: Performed By: #### B UNCRT, GLU, LYTE ####[facility] [address] [place] [address] Sodium molar conc 139 mmol/L Normal 135-144 [facility] Comment on above: Performed By: #### B UNCRT, GLU, LYTE ####[facility] [address] [place] [address] Glucoseon 10-09-2017 Glucose mass conc 149 mg/dL High 70-99 [facility] Comment on above: Result Comment: [facility] [address] [place] [address] Performed By: #### B UNCRT, GLU, LYTE ####[facility] [address] [place] [address] History and Physicalon 10-09 HIM IP Note OR Automatic Spinning Lathe Operator Normal [facility] Progress Noteon 10-09-2017 HIM IP Note OR Automatic Spinning Lathe Operator Normal [facility] Encounters Encounter Date Encounter Type Care Provider [...] Facility:H1 Start: 07-10-[address] BANG [facility] ity:H1 Start: 06-18-2022 End: 06-19-2022 ambulatory Ivanna TREADWELL [facility] Start: 04-22-2022 Encounter for genera l adult medical examination without abnormal findings DR ROBERTO BANG [facility] Start: 04-19-2022 End: 04-20-[address] ROBERTO BANG Facility:[facility]1 Start: 04-19-2022 End: 04-20-2022 Encounter for general adult medical examination without abnormal findings DR ROBERTO BANG Facility:[facility]1 Start: 10-21-2017 End: 10-22-2017 Evaluation and management of inpatient MEGAN MATIAS [facility] Start: 10-09-2017 End: 10-14-2017 Patient encounter MEGAN ESQUIVELJACOB [facility] Procedures Date Procedure Procedure Detail Performing Clinician Start: 04-19-[address] ROBERTO SANCHEZ Comment on above: Performed By: #### [facility] #### [facility] [address] [place] [address] Dr. Kelton Ludwig Start: 10-22-2017 DISCHARGE PATIENT [...] PROPHYLAXIS MEGAN MATIAS Start: 10-21-2017 DIET GENERAL VINECNT Start: 10-21-2017 FULL CODE VINCENT Start: 10-21-2017 [...] CREATININE BLAKE MATIAS Start: 10-09-2017 ELECTROLYTE PANEL KAYILN AMTIAS Start: 10-09-2017 GLUCOSE, RANDOM MEGAN MATIAS Start: 10-09-2017 NURSING COMMUNICATION T NATO MATIAS Start: 10-09-2017 EKG 12-LEAD VINCENT Payers Date Payer Category Payer Unknown [id number] 2022 Unknown [id number] 2014 Unknown [id number] 1960 Private Health Insurance [id number] 1960 Self-pay 1960 Unknown [id number] 2.16.84 [id number] 1959 Unknown [id number] 2.16.84 [id number] 1959 Unknown [id number] 2.16.84 [id number] 1959 Unknown [id number] 2.16.84 [id number] 1959 Unknown [id number] 2.16.84 [id number] Summary Purpose Family History No Family History [...] section and content) DATE CREATED AUTHOR 04/02/2018 [facility] DATE CREATED AUTHOR AUTHOR'S ORGANIZ ATION 12/03/2022 [facility] DATE CREATED AUTHOR AUTHOR'S ORGANIZ ATION 03/08/2023 [facility] DATE CREATED AUTHOR AUTHOR'S ORGANIZ ATION 01/02/2024 [facility] FOR RECORDS PERTAINING TO PATIENTS WHO [...] BE BASED ON THE PRIMARY CLINICAL RECORDS. [facility] [email or web address] [facility]. provides no warranty or guarantee of the accuracy or completeness of information in this document.
--- NOTE | 2024-05-14 16:53 | XR_ITS ---
[facility] [place] [facility] [id number] Patient Name: SANTO PHIPPS MRN: [id number] date: 1960 Sex: M Assigned Patient Location: ER Current Patient Location: ER Accession/Order Number: [id number] Exam Date: 05/14/2024 17:15 Report Date: 05/14/2024 18:25 At the request of: RAMO PEPPER Procedure: XR forearm LT 2V EXAM: XR forearm LT 2V HISTORY: INFECTION form laceration several weeks ago now with clinical signs of infection. COMPARISON: None. TECHNIQUE: AP lateral left forearm elbow to wrist. FINDINGS: Soft tissue laceration along the ulnar aspect of the forearm just distal midline. Proximal to this is a small round density could be foreign body or calcification, approximately 4 mm. There is subcutaneous edema in the forearm without gas extending proximal or distal to the soft tissue laceration. Proximal to this is a metallic foreign body just distal to the elbow along the radial aspect remote from the soft tissue injury site. There is no fracture or healing fracture. No lytic bone destruction or periosteal reaction or other evidence of osteomyelitis Medial humeral epicondyles spurring at the elbow felt to be chronic. XR/XR forearm LT 2V IMPRESSION: Soft tissue injury along the ulnar aspect of the forearm without adjacent fracture, osteomyelitis or bony abnormality. Proximal to the soft tissue injury is a round density possible foreign body or calcification 4 mm. Other incidental findings as noted above. Electronically authenticated by: KANWAL BHAT Date: 05/14/2024 18:25
--- NOTE | 2024-05-14 16:56 | ED.WOUNDLAC1 ---
HPI - Wound/Laceration General Chief Complaint: Wound/Laceration Stated Complaint: Physician Referral Time Seen by Provider: 05/14/24 16:53 Source: family Mode of arrival: walk-in Limitations: no limitations History of Present Illness HPI narrative: 63 year old male presents to the ED for a wound to his left arm. Reports cutting his forearm on a saw 5 weeks ago. States there were two lacerations to the forearm. Two weeks ago he developed erythema, drainage from the wounds. States the erythema, swelling extended to his wrist. There is a break in the skin on the anterior wrist from the swelling. The erythema and swelling have since extended up the upper arm. Denies fever, chills. He is diabetic. The patient was sent by his pcp for IV antibiotics. I did speak with Dr. Alarcon prior to the patient's arrival. Related Data Allergies Allergy/AdvReac Type Severity Reaction Status Date / Time No Known Drug Allergies Allergy Verified 05/14/24 16:30 Review of Systems ROS Constitutional Denies: fever or chills Cardiovascular Denies: chest pain Respiratory Denies: shortness of breath Musculoskeletal Reports: extremity pain and extremity swelling Integumentary/Breast Reports: redness, skin tenderness and new lesion Neurological Denies: numbness in extremities or weakness in extremities PFSH PFSH Social History Little interest or pleasure in doing things: not at all Feeling down, depressed, or hopeless: not at all Exam Constitutional Vital Signs, click to edit/add: Last Vital Signs Temp 98.7 F 05/14/24 16:30 Pulse 78 05/14/24 16:30 Resp 20 05/14/24 16:30 BP 135/73 05/14/24 16:30 Pulse Ox 98 05/14/24 16:30 O2 Del Method Room Air 05/14/24 16:30 Common normals: no apparent distress and oriented x3 General appearance: cooperative Eye Common normals: conjunctivae normal and no scleral icterus Neck & C-Spine Common normals: supple Chest Chest: symmetrical chest wall rise Respiratory Common normals: normal respiratory effort Effort & inspection: able to speak in complete sentences Cardio Common normals: regular rate Peripheral pulses: radial pulses present and ulnar pulses present Extremity Other: Two wounds noted to left forearm. There is purulent drainage from the wounds; copious amount. Surrounding erythema, swelling that extends down to the wrist and up the arm to the mid upper medial arm. There is a break in the skin on the anterior wrist; it is scabbed over with no drainage. Distal sensation intact. Pt has full ROM to his left hand and digits. Cap refill <3 sec. Course Vital Signs Vital signs: Vital Signs Temperature 98.7 F 05/14/24 16:30 Pulse Rate 78 05/14/24 16:30 Respiratory Rate 20 05/14/24 16:30 Blood Pressure 135/73 05/14/24 16:30 Pulse Oximetry 98 05/14/24 16:30 Oxygen Delivery Method Room Air 05/14/24 16:30 Temperature 98.7 F 05/14/24 16:30 Pulse Rate 78 05/14/24 16:30 Respiratory Rate 20 05/14/24 16:30 Blood Pressure 135/73 05/14/24 16:30 Pulse Oximetry 98 05/14/24 16:30 Oxygen Delivery Method Room Air 05/14/24 16:30 MDM - Wound/Laceration MDM Narrative Medical decision making narrative: WBC count was 10.1, lactic acid 1.1. The patient was started on IV antibiotics. He will be admitted for further evaluation and treatment. I spoke with dang [facility], who accepted the patient on behalf of Dr. Amador. Medical Records Attestation: I reviewed the patient's medical records. Lab Data Attestation: I reviewed the patient's lab results. Labs: Lab Results 05/14/24 Range/Units 17:06 WBC 10.7 (4.0-11.0) 10^3/uL RBC 4.29 L (4.70-6.10) 10^6/uL Hgb 12.8 L (14.0-18.0) g/dL Hct 38.6 L (42.0-54.0) % MCV 90.0 (80.0-94.0) fL MCH 29.8 (25.9-34.0) pg MCHC 33.2 (29.9-35.2) g/dL RDW 12.6 (11.0-15.0) % Plt Count 283 (150-450) 10^3/uL MPV 9.4 L (9.5-13.5) fL Neut % (Auto) 77.0 H (43.0-75.0) % Lymph % (Auto) 11.2 L (20.5-60.0) % [place] % (Auto) 9.0 (1.7-12.0) % Eos % (Auto) 1.8 (0.9-7.0) % Baso % (Auto) 0.4 (0.2-2.0) % Neut # (Auto) 8.2 H (1.4-6.5) 10^3/uL Lymph # (Auto) 1.2 (1.2-3.8) 10^3/uL [place] # (Auto) 1.0 H (0.3-0.8) 10^3/uL Eos # (Auto) 0.2 (0.0-0.7) 10^3/uL Baso # (Auto) 0.0 (0.0-0.1) 10^3/uL Abs Immat Gran (auto) 0.06 H (0.00-0.03) 10^3/uL Imm/Tot Granulo (auto) 0.6 H (0.0-0.5) % Sodium 129 L (136-145) mmol/L Potassium 4.1 (3.5-5.1) mmol/L Chloride 94 L (98-107) mmol/L Carbon Dioxide 24.8 (21.0-32.0) mmol/L Anion Gap 14.3 BUN 26.0 H (7.0-18.0) mg/dL Creatinine 1.29 (0.70-1.30) mg/dL Est GFR ( Amer) >60 (>=60 mL/min/1.73m^2) Est GFR (Non-Af Amer) 56 L (>=60 mL/min/1.73m^2) BUN/Creatinine Ratio 20.2 Glucose 268 H (74-106) mg/dL Lactate 1.0 (0.4-2.0) mmol/L Calcium 9.2 (8.5-10.1) mg/dL Total Bilirubin 0.5 (0.2-1.0) mg/dL AST 11 L (15-37) U/L ALT 20 (16-63) U/L Alkaline Phosphatase 108 (46-116) U/L Total Protein 7.1 (6.4-8.2) g/dL Albumin 2.9 L (3.4-5.0) g/dL Globulin 4.2 g/dL Albumin/Globulin Ratio 0.7 Imaging Data XR: Attestation: I have reviewed the pertinent imaging results. Radiologist's impression: ITS Impressions Forearm X-Ray 05/14/24 16:53 IMPRESSION: Soft tissue injury along the ulnar aspect of the forearm without adjacent fracture, osteomyelitis or bony abnormality. Proximal to the soft tissue injury is a round density possible foreign body or calcification 4 mm. Other incidental findings as noted above. Electronically authenticated by: KANWAL BHAT Date: 05/14/2024 18:25 Discharge Plan Discharge Chief Complaint: Wound/Laceration Clinical Impression: Cellulitis Patient Disposition: Admitted As Inpatient Time of Disposition Decision: 18:45 Condition: Good
[2024-05-14] MEDS: CEFAZOLIN SODIUM/DEXTROSE,ISO 1 GM/50 ML PREMIX IV (17:19)
[2024-05-14 17:22] LABS: Basophils Percent Auto 0.4 % (0.2-2.0); Eosinophils Absolute Auto 0.2 10^3/uL (0.0-0.7); Eosinophils Percent Auto 1.8 % (0.9-7.0); Hematocrit 38.6 % (42.0-54.0); Hemoglobin 12.8 g/dL (14.0-18.0); Immature Granulocytes Abs Auto 0.06 10^3/uL (0.00-0.03); Immature Granulocytes Pct Auto 0.6 % (0.0-0.5); Lymphocytes Absolute Auto 1.2 10^3/uL (1.2-3.8); Lymphocytes Percent Auto 11.2 % (20.5-60.0); Mean Corpuscular HGB Conc 33.2 g/dL (29.9-35.2); Mean Corpuscular Hemoglobin 29.8 pg (25.9-34.0); Mean Platelet Volume 9.4 fL (9.5-13.5); Neutrophils Absolute Auto 8.2 10^3/uL (1.4-6.5); Platelet Count 283 10^3/uL (150-450); Red Blood Count 4.29 10^6/uL (4.70-6.10); Red Cell Distribution Width 12.6 % (11.0-15.0); White Blood Count 10.7 10^3/uL (4.0-11.0)
[2024-05-14 17:41] LABS: Alanine Aminotransferase 20 U/L (16-63); Albumin Globulin Ratio 0.7; Albumin Level 2.9 g/dL (3.4-5.0); Alkaline Phosphatase 108 U/L (46-116); Anion Gap 14.3; Aspartate Amino Transferase 11 U/L (15-37); BUN Creatinine Ratio 20.2; Bilirubin Total 0.5 mg/dL (0.2-1.0); Calcium 9.2 mg/dL (8.5-10.1); Carbon Dioxide 24.8 mmol/L (21.0-32.0); Chloride 94 mmol/L (98-107); Estimated GFR (African America >60 (>=60 mL/min/1.73m^2); Estimated GFR (Non-African Ame 56 (>=60 mL/min/1.73m^2); Globulin 4.2 g/dL; Glucose 268 mg/dL (74-106); Potassium 4.1 mmol/L (3.5-5.1); Sodium 129 mmol/L (136-145); Total Protein 7.1 g/dL (6.4-8.2)
[2024-05-14] MEDS: VANCOMYCIN HCL 1,750 MG in 0.9 % SODIUM CHLORIDE 500 ML 250 MG IV (17:55)
[2024-05-14] MEDS: ADACEL DIPH,PERTUSS(ACELL),TET VAC/PF 0.5 ML ADULT SYRINGE IM (17:59)
[2024-05-14 19:17] VITALS: BP 142/71; PULSE 87; O2SAT 100
--- OUTSIDE RECORDS SUMMARY | 2024-05-14 19:26 | XMS_ITS | CCD ---
Author Organization [facility] Care Team Providers Care Digital Art Director Name Role Phone MEGAN MATIAS Unavailable Unavailable [...] Inhibitors Drug allergy (disorder) 03-01-2016 [facility] Repository Problems Active Problems Problem Classification [...] Interpretation Reference Range Facility [place] 03-07-2023 Consent [id number]#1.00CD:[address] [facility] Registrationon 03-07-2023 Registration [id number]#1.00CD:[address] [facility] [place] 12-17-2022 Consent [id number]#1.00CD:[address] [facility] In office Testingon 12-18-19 23 In office Testing [id number]#1.00CD:[address] [facility] In office Testing [id number]#1.00CD:[address] [facility] Registrationon 12-17-2022 Registration [id number]#1.00CD:[address] [facility] GLYCOHEMOGLOBIN A1Con 2022 ADA RECOMMENDATION SEE BELOW Normal [facility] Comment on above: Result Comment: ADA RECOMMENDED LIMIT 4.0 - 6.0 ADA THERAPEUTIC TARGET < 7.0 ACTION SUGGESTED > 7.0 Performed By: #### A 1C #### [facility] [address] [address] [address] Kelton Ludwig Glucose [Mass/Vol] 263 mg/dL Normal [facility] Comment on above: Performed By: #### A 1C #### [facility] [address] [place], [place] [address] Dr. Kelton Ludwig HbA1c (Bld) [Mass fraction] 10.8 % Critically high 4.5-6.2 [facility] Comment on above: Performed By: #### A 1C #### [facility] [address] [address] [address] Kelton Ludwig [place] 06-18-2022 Consent [id number]#1.00CD:12 7 Normal [facility] In office Testingon 06-18-20 22 In office Testing [id number]#1.00CD:1 27 Normal [facility] Registrationon 06-18-2022 Registration [id number]#1.00CD:12 7 Normal [facility] MICROALBUMIN URINEon 022 Albumin, Urine 32.3 ug/mL Normal Not Estab. [facility] Comment on above: Performed By: #### M ALBLC #### [facility] [address] [address] [address] Kelton Ludwig VIT D 25-OH LABCORPon 2021 Vitamin D, 25-Hydroxy 37.9 ng/mL Normal 30.0-100.0 [facility] Comment on above: Result Comment: Hemalatha min D deficiency has been defined by the [place] of Medicine and an Endocrine Society practice guideline as a level of serum 25-OH vitamin D less than 20 ng/mL (1,2). The Endocrine Society went on to further define vitamin D insufficiency as a level between 21 and 29 ng/mL (2). 1. IOM ([place] of Medicine). 2010. Dietary reference intakes for calcium and D. [place]: The National Academies Press. 2. German MF, Arturo NC, Dolores WAYNE, et al. Evaluation, treatment, and prevention of vitamin D deficiency: an Endocrine Society clinical practice guideline. JCEM. 2010; 96(7):1911-30. Performed By: #### V ITADLC #### [facility] [address] [place], [place] [address] Dr. Kelton Ludwig CBC AUTO DIFFon 04-19-2022 BASO # 0.0 103/ul Normal 0.0-0.1 [facility] Comment on above: Performed By: #### C BC #### [facility] [address] [place], [place] [address] Dr. Kelton Ludwig Basophils/100 WBC (Bld) 0.6 % Normal 0.2-2.0 [facility] Comment on above: Performed By: #### C BC #### [facility] [address] [place] [address] Dr. Kelton Ludwig EO # 0.3 103/ul Normal 0.0-0.7 [facility] Comment on above: Performed By: #### C BC #### [facility] [address] [place] [address] Dr. Kelton Ludwig Eosinophils/100 WBC (Bld) 3.5 % Normal 0.9-7.0 [facility] Comment on above: Performed By: #### C BC #### [facility] [address] [place] [address] Dr. Kelton Ludwig Erythrocyte distribution width (RBC) [Ratio] 12.6 % Normal 11.0-15.0 [facility] Comment on above: Performed By: #### C BC #### [facility] [address] [place] [address] Dr. Kelton Ludwig Hematocrit (Bld) [Volume fraction] 44.6 % Normal 42.0-54.0 [facility] Comment on above: Performed By: #### C BC #### [facility] [address] [place] [address] Dr. Kelton Ludwig Hemoglobin (Bld) [Mass/Vol] 14.1 g/dL Normal 14.0-18.0 [facility] Comment on above: Performed By: #### C BC #### [facility] [address] [place] [address] Dr. Kelton Ludwig IG # 0.03 10e3/ul Normal 0.00-0.03 [facility] Comment on above: Performed By: #### C BC #### [facility] [address] [place] [address] Dr. Kelton Ludwig IG % 0.4 % Normal 0.0-0.5 [facility] Comment on above: Performed By: #### C BC #### [facility] [address] [place] [address] Dr. Kelton Ludwig LYMPH # 1.2 103/ul Normal 1.2-3.8 [facility] Comment on above: Performed By: #### C BC #### [facility] [address] [place] [address] Dr. Kelton Ludwig Lymphocytes/100 WBC (Bld) 16.9 % Critically low 20.5-60.0 [facility] Comment on above: Performed By: #### C BC #### [facility] [address] [place] [address] Dr. Kelton Ludwig MANUAL DIFF REQ NO Normal [facility] Comment on above: Performed By: #### C BC #### [facility] [address] [place] [address] Dr. Kelton Ludwig MCH (RBC) [Entitic mass] 29.7 pg Normal 25.9-34.0 [facility] Comment on above: Performed By: #### C BC #### [facility] [address] [place] [address] Dr. Kelton Ludwig MCHC (RBC) [Mass/Vol] 31.6 g/dL Normal 29.9-35.2 [facility] Comment on above: Performed By: #### C BC #### [facility] [address] [place] [address] Dr. Kelton Ludwig MCV (RBC) [Entitic vol] 94.1 fL Critically high 80.0-94.0 [facility] Comment on above: Performed By: #### C BC #### [facility] [address] [place] [address] Dr. Kelton Ludwig MONO # 0.5 103/ul Normal 0.3-0.8 [facility] Comment on above: Performed By: #### C BC #### [facility] [address] [place] [address] Dr. Kelton Ludwig Monocytes/100 WBC (Bld) 7.3 % Normal 1.7-12.0 [facility] Comment on above: Performed By: #### C BC #### [facility] [address] [place] [address] Dr. Kelton Ludwig NEUT # 5.1 103/ul Normal 1.4-6.5 [facility] Comment on above: Performed By: #### C BC #### [facility] [address] [address] [address] Kelton Ludwig Neutrophils/100 WBC (Bld) 71.3 % Normal 43.0-75.0 [facility] Comment on above: Performed By: #### C BC #### [facility] [address] [address] [address] Kelton Ludwig Platelet mean volume (Bld) [Entitic vol] 10.3 fL Normal 9.5-13.5 [facility] Comment on above: Performed By: #### C BC #### [facility] [address] [address] [address] Kelton Ludwig PLT 221 103/ul Normal 150-450 [facility] Comment on above: Performed By: #### C BC #### [facility] [address] [place] [address] Dr. Kelton Ludwig RBC 4.74 106/ul Normal 4.70-6.10 [facility] Comment on above: Performed By: #### C BC #### [facility] [address] [place] [address] Dr. Kelton Ludwig WBC 7.1 103/ul Normal 4.0-11.0 [facility] Comment on above: Performed By: #### C BC #### [facility] [address] [place] [address] Dr. Kelton Ludwig GLYCOHEMOGLOBIN A1Con 2021 ADA RECOMMENDATION SEE BELOW Normal [facility] Comment on above: Result Comment: ADA RECOMMENDED LIMIT 4.0 - 6.0 ADA THERAPEUTIC TARGET < 7.0 ACTION SUGGESTED > 7.0 Performed By: #### A 1C #### [facility] [address] [place] [address] Dr. Kelton Ludwig Glucose [Mass/Vol] 194 mg/dL Normal [facility] Comment on above: Performed By: #### A 1C #### [facility] [address] [place] [address] Dr. Kelton Ludwig HbA1c (Bld) [Mass fraction] 8.4 % Critically high 4.5-6.2 [facility] Comment on above: Performed By: #### A 1C #### [facility] [address] [address] [address] Kelton Ludwig LIPID PROFILEon 04-19-2022 CHOL-HDL RATIO NORM SEE BELOW Normal [facility] Comment on above: Result Comment: 3.3 - 4.4 LOW RISK 4.4 - 7.1 AVERAGE RISK 7.1 - 11.0 MODERATE RISK >11.0 HIGH RISK Performed By: #### T SH, LIPID, BMP, LIVER #### [facility] [address] [address] [address] Kelton Ludwig Cholesterol [Mass/Vol] 179 mg/dL Normal <=200 [facility] Comment on above: Performed By: #### T SH, LIPID, BMP, LIVER #### [facility] [address] [address] [address] Kelton Ludwig Cholesterol in HDL [Mass/Vol] 49 mg/dL Normal 40-60 [facility] Comment on above: Performed By: #### T SH, LIPID, BMP, LIVER #### [facility] [address] [address] [address] Kelton Ludwig Cholesterol in LDL [Mass/Vol] 118.4 mg/dL Normal [facility] Comment on above: Performed By: #### T SH, LIPID, BMP, LIVER #### [facility] [address] [address] [address] Kelton Ludwig Cholesterol.total/C holesterol in HDL [Mass ratio] 3.7 {ratio} Normal [facility] Comment on above: Performed By: #### T SH, LIPID, BMP, LIVER #### [facility] [address] [address] [address] Kelton Ludwig HDL NORMAL > or = 60 mg/dl - LO W CARDIOVASCULAR RISK <40 mg/dl - HIGH CARDIOVASCULAR RISK Normal [facility] Comment on above: Performed By: #### T SH, LIPID, BMP, LIVER #### [facility] [address] [address] [address] Kelton Ludwig LDL CALC NORMAL SEE BELOW Normal [facility] Comment on above: Result Comment: <100 mg/dl OPTIMAL 100 - 129 mg/dl NEAR OR ABOVE OPTIMAL 130 - 159 mg/dl BORDERLINE HIGH 160 - 189 mg/dl HIGH >190 mg/dl VERY HIGH Performed By: #### T SH, LIPID, BMP, LIVER #### [facility] [address] [place] [address] Dr. Kelton Ludwig Triglyceride [Mass/Vol] 58 mg/dL Normal <=150 [facility] Comment on above: Performed By: #### T SH, LIPID, BMP, LIVER #### [facility] [address] [place] [address] Dr. Kelton Ludwig VLDL CALC 11.6 mg/dL Normal [facility] Comment on above: Performed By: #### T SH, LIPID, BMP, LIVER #### [facility] [address] [place] [address] Dr. Kelton Ludwig LIVER PROFILEon 04-19-2022 Albumin [Mass/Vol] 3.8 g/dL Normal 3.4-5.0 [facility] Comment on above: Performed By: #### T SH, LIPID, BMP, LIVER #### [facility] [address] [place] [address] Dr. Kelton Ludwig Albumin/Globulin [Mass ratio] 1.3 {ratio} Normal [facility] Comment on above: Performed By: #### T SH, LIPID, BMP, LIVER #### [facility] [address] [place] [address] Dr. Kelton Ludwig ALP [Catalytic activity/Vol] 51 U/L Normal 46-116 [facility] Comment on above: Performed By: #### T SH, LIPID, BMP, LIVER #### [facility] [address] [place] [address] Dr. Kelton Ludwig ALT [Catalytic activity/Vol] 18 U/L Normal 16-63 [facility] Comment on above: Performed By: #### T SH, LIPID, BMP, LIVER #### [facility] [address] [place] [address] Dr. Kelton Ludwig AST [Catalytic activity/Vol] 12 U/L Critically low 15-37 [facility] Comment on above: Performed By: #### T SH, LIPID, BMP, LIVER #### [facility] [address] [place] [address] Dr. Kelton Ludwig BILI, CONJUGATED 0.2 mg/dL Normal 0.0-0.2 [facility] Comment on above: Performed By: #### T SH, LIPID, BMP, LIVER #### [facility] [address] [place] [address] Dr. Kelton Ludwig Bilirubin [Mass/Vol] 0.6 mg/dL Normal 0.2-1.0 [facility] Comment on above: Performed By: #### T SH, LIPID, BMP, LIVER #### [facility] [address] [place] [address] Dr. Kelton Ludwig Globulin (S) [Mass/Vol] 3.0 g/dL Normal [facility] Comment on above: Performed By: #### T SH, LIPID, BMP, LIVER #### [facility] [address] [place] [address] Dr. Kelton Ludwig Protein [Mass/Vol] 6.8 g/dL Normal 6.4-8.2 [facility] Comment on above: Performed By: #### T SH, LIPID, BMP, LIVER #### [facility] [address] [place] [address] Dr. Kelton Ludwig PROF CHEM 8 (BAS METB)on Anion gap [Moles/Vol] 8.2 mmol/L Normal [facility] Comment on above: Performed By: #### T SH, LIPID, BMP, LIVER #### [facility] [address] [place] [address] Dr. Kelton Ludwig Calcium [Mass/Vol] 8.9 mg/dL Normal 8.5-10.1 [facility] Comment on above: Performed By: #### T SH, LIPID, BMP, LIVER #### [facility] [address] [place] [address] Dr. Kelton Ludwig Chloride [Moles/Vol] 104 mmol/L Normal 98-107 [facility] Comment on above: Performed By: #### T SH, LIPID, BMP, LIVER #### [facility] [address] [address] [address] Kelton Ludwig CO2 [Moles/Vol] 31.2 mmol/L Normal 21.0-32.0 [facility] Comment on above: Performed By: #### T SH, LIPID, BMP, LIVER #### [facility] [address] [address] [address] Kelton Ludwig Creatinine [Mass/Vol] 1.08 mg/dL Normal 0.70-1.30 [facility] Comment on above: Performed By: #### T SH, LIPID, BMP, LIVER #### [facility] [address] [address] [address] Kelton Ludwig EGFR-AF [place] >60 Normal >=60 [facility] Comment on above: Performed By: #### T SH, LIPID, BMP, LIVER #### [facility] [address] [place] [address] Dr. Kelton Ludwig EGFR-NON AF [place] >60 Normal >=60 [facility] Comment on above: Performed By: #### T SH, LIPID, BMP, LIVER #### [facility] [address] [address] [address] Kelton Ludwig Glucose [Mass/Vol] 171 mg/dL Critically high 74-106 [facility] Comment on above: Performed By: #### T SH, LIPID, BMP, LIVER #### [facility] [address] [address] [address] Kelton Ludwig Potassium [Moles/Vol] 4.4 mmol/L Normal 3.5-5.1 [facility] Comment on above: Performed By: #### T SH, LIPID, BMP, LIVER #### [facility] [address] [address] [address] Kelton Ludwig Sodium [Moles/Vol] 139 mmol/L Normal 136-145 [facility] Comment on above: Performed By: #### T SH, LIPID, BMP, LIVER #### [facility] [address] [address] [address] Kelton Ludwig Urea nitrogen [Mass/Vol] 20.0 mg/dL Critically high 7.0-18.0 [facility] Comment on above: Performed By: #### T SH, LIPID, BMP, LIVER #### [facility] [address] [place], [place] [address] Dr. Kelton Ludwig Urea nitrogen/Creatinine [Mass ratio] 18.5 mg/mg Normal [facility] Comment on above: Performed By: #### T SH, LIPID, BMP, LIVER #### [facility] [address] [place], [place] [address] Dr. Kelton Ludwig TSHon 04-19-2022 TSH 0.837 uIU/mL Normal 0.358-3.740 [facility] Comment on above: Performed By: #### T SH, LIPID, BMP, LIVER #### [facility] [address] [place], [place] [address] Dr. Kelton Ludwig Progress Noteon 03-31-2018 HIM IP Note OR Primer Boxer Normal [facility] HIM IP Note OR Primer Boxer Normal [facility] Progress Noteon 01-03-2018 HIM IP Note OR Primer Boxer Normal [facility] Progress Noteon 12-23-2017 HIM IP Note OR Primer Boxer Normal [facility] Progress Noteon 12-09-2017 HIM IP Note OR Primer Boxer Normal [facility] Progress Noteon 12-06-2017 HIM IP Note OR Primer Boxer Normal [facility] Discharge Summaryon 10-23-19 18 HIM IP Note OR Primer Boxer Normal [facility] Plan of Careon 10-22-2017 HIM IP Note OR Primer Boxer Normal [facility] HIM IP Note OR Primer Boxer Normal [facility] Progress Noteon 10-22-2017 HIM IP Note OR Primer Boxer Normal [facility] HIM IP Note OR Primer Boxer Normal [facility] Interval History and Physion 10-21-2017 HIM IP Note OR Primer Boxer Normal [facility] OPERATIVE REPORTon 8 OPERATIVE REPORT [address] [id number] OPERATIVE REPORTPATIENT NAME: SANTO PHIPPS : 1960[facility] REC NO: [id number] ROOM: [address] [place] [address] NO: [id number] ADMIT DATE: 10/21/2017PROVIDER: Megan Matias, MDDATE OF [...] the disk space. We then placed our [place] pins to mobilizethe space. We gently distracted [...] recovery room.MEGAN MATIAS, MDD: 10/21/2017 10:38:52 [email or web address]#: [id number] Doc#: [id number]: Megan Matias MD Normal [facility] Op Noteon 10-21-2017 HIM IP Note OR Primer Boxer Normal [facility] Progress Noteon 10-21-2017 HIM IP Note OR Primer Boxer Normal [facility] HIM IP Note OR Primer Boxer Normal [facility] HIM IP Note OR Primer Boxer Normal [facility] XR CERVICAL SPINE 1 VWon XR CERVICAL SPINE 1 VW Radiology exam is complete. No Radiologist dictation. Please follow up with ordering provider. Final result Normal [facility] Protein mass conc EXAMINATION:1 VIEW [...] by:GLORIA Sheldonigned by:Judy Mendez MD3/19/18Final result Normal [facility] XR CERVICAL SPINE 1 VW Radiology exam is complete. No Radiologist dictation. Please follow up with ordering provider. Final result Normal [facility] BUN + Creatinineon 8 (cont.) Normal [facility] Comment on above: Result Comment: Aver age GFR for 50-59 years old: 93 mL/min/1.73sq mChronic Kidney Disease: <60 mL/min/1.73sq mKidney failure: <15 mL/min/1.73sq meGFR calculated using average adult body mass. Additional eGFR calculator available at:[email or web address] [address] Performed By: #### B UNCRT, GLU, LYTE ####[facility] [address] [place] [address] Creatinine mass conc 0.75 mg/dL Normal 0.70-1.20 [facility] Comment on above: Performed By: #### B UNCRT, GLU, LYTE ####[facility] [address] [place] [address] GFR, Amer >60 Normal >60 [facility] Comment on above: Performed By: #### B UNCRT, GLU, LYTE ####[facility] [address] [place] [address] GFR,non Amer >60 Normal >60 [facility] Comment on above: Performed By: #### B UNCRT, GLU, LYTE ####[facility] [address] [place] [address] Urea nitrogen mass conc 10 mg/dL Normal 6-20 [facility] Comment on above: Performed By: #### B UNCRT, GLU, LYTE ####[facility] [address] [place] [address] Staging: NOT REPORTED Normal [facility] Comment on above: Performed By: #### B UNCRT, GLU, LYTE ####[facility] [address] [place] [address] Electrolyteson 10-09-2017 Anion gap 3 molar conc 11 mmol/L Normal 9-17 [facility] Comment on above: Result Comment: [facility] [address] [place] [address] Performed By: #### B UNCRT, GLU, LYTE ####[facility] [address] [place] [address] Chloride molar conc 101 mmol/L Normal 98-107 [facility] Comment on above: Performed By: #### B UNCRT, GLU, LYTE ####[facility] [address] [place] [address] CO2 molar conc 27 mmol/L Normal 20-31 [facility] Comment on above: Performed By: #### B UNCRT, GLU, LYTE ####[facility] [address] [place] [address] Potassium molar conc 4.0 mmol/L Normal 3.7-5.3 [facility] Comment on above: Performed By: #### B UNCRT, GLU, LYTE ####[facility] [address] [place] [address] Sodium molar conc 139 mmol/L Normal 135-144 [facility] Comment on above: Performed By: #### B UNCRT, GLU, LYTE ####[facility] [address] [place] [address] Glucoseon 10-09-2017 Glucose mass conc 149 mg/dL High 70-99 [facility] Comment on above: Result Comment: [facility] [address] [place] [address] Performed By: #### B UNCRT, GLU, LYTE ####[facility] [address] [place] [address] History and Physicalon 10-09 HIM IP Note OR Primer Boxer Normal [facility] Progress Noteon 10-09-2017 HIM IP Note OR Primer Boxer Normal [facility] Encounters Encounter Date Encounter Type [...] Facility:H1 Start: 07-10-[address] ROBERTO BANG [facility] ity:H1 Start: 06-18-2022 End: 06-19-2022 ambulatory Ivanna TREADWELL [facility] Start: 04-22-2022 Encounter for genera l adult medical examination without abnormal findings DR ROBERTO BANG [facility] Start: 04-19-2022 End: 04-20-[address] ROBERTO BANG Facility:[facility]1 Start: 04-19-2022 End: 04-20-2022 Encounter for general adult medical examination without abnormal findings DR ROBERTO BANG Facility:[facility]1 Start: 10-21-2017 End: 10-22-2017 Evaluation and management of inpatient MEGAN MATIAS [facility] Start: 10-09-2017 End: 10-14-2017 Patient encounter MEGAN ESQUIVELJACOB [facility] Procedures Date Procedure Procedure Detail Performing Clinician Start: 04-19-[address] ROBERTO SANCHEZ Comment on above: Performed By: #### [facility] #### [facility] [address] [place] [address] Dr. Kelton Ludwig Start: 10-22-2017 DISCHARGE PATIENT [...] VINCENT Payers Date Payer Category Payer Unknown [id number] 2022 Unknown [id number] 2014 Unknown [id number] 1960 Private Health Insurance [id number] 1960 Self-pay 1960 Unknown [id number] 2.16.84 [id number] 1960 Unknown [id number] 2.16.84 [id number] 1960 Unknown [id number] 2.16.84 [id number] 1960 Unknown [id number] 2.16.84 [id number] 1960 Unknown [id number] 2.16.84 [id number] Summary Purpose Family History No Family History [...] section and content) DATE CREATED AUTHOR 04/02/2018 [facility] DATE CREATED AUTHOR AUTHOR'S ORGANIZ ATION 12/03/2022 [facility] DATE CREATED AUTHOR AUTHOR'S ORGANIZ ATION 03/08/2023 [facility] DATE CREATED AUTHOR AUTHOR'S ORGANIZ ATION 01/02/2024 [facility] FOR RECORDS PERTAINING TO PATIENTS WHO [...] BE BASED ON THE PRIMARY CLINICAL RECORDS. [facility]. provides no warranty or guarantee of the accuracy or completeness of information in this document.
[2024-05-14 19:49] VITALS: BMI 33.5
[2024-05-14 20:00] VITALS: BP 130/72; PULSE 71; TEMP 36.9; O2SAT 97
[2024-05-14 20:13] VITALS: O2SAT 93
--- NOTE | 2024-05-14 20:13 | RESP.RT ---
Pt resting. No PRN breathing tx given. Pt denies need. No respiratory distress noted.
[2024-05-14] MEDS: ENOXAPARIN SODIUM 40 MG/0.4 ML SYRINGE SUBQ (21:13)
[2024-05-14] MEDS: DIPHENHYDRAMINE HCL 50 MG/ML VIAL 25 MG IV (21:13)
[2024-05-15] MEDS: CEFAZOLIN SODIUM/DEXTROSE,ISO 1 GM/50 ML PREMIX IV ×2 (00:06→08:32)
[2024-05-15 04:11] VITALS: O2SAT 95
[2024-05-15 06:00] VITALS: BP 157/80; PULSE 78; TEMP 36.6; O2SAT 95
[2024-05-15 06:03] LABS: Basophils Absolute Auto 0.1 10^3/uL (0.0-0.1); Basophils Percent Auto 0.6 % (0.2-2.0); Eosinophils Absolute Auto 0.3 10^3/uL (0.0-0.7); Eosinophils Percent Auto 3.2 % (0.9-7.0); Hematocrit 39.7 % (42.0-54.0); Hemoglobin 12.8 g/dL (14.0-18.0); Immature Granulocytes Abs Auto 0.05 10^3/uL (0.00-0.03); Immature Granulocytes Pct Auto 0.6 % (0.0-0.5); Lymphocytes Absolute Auto 1.3 10^3/uL (1.2-3.8); Lymphocytes Percent Auto 14.9 % (20.5-60.0); Mean Corpuscular HGB Conc 32.2 g/dL (29.9-35.2); Mean Corpuscular Hemoglobin 29.5 pg (25.9-34.0); Mean Corpuscular Volume 91.5 fL (80.0-94.0); Mean Platelet Volume 9.5 fL (9.5-13.5); Monocytes Absolute Auto 0.9 10^3/uL (0.3-0.8); Neutrophils Absolute Auto 6.4 10^3/uL (1.4-6.5); Neutrophils Percent Auto 70.7 % (43.0-75.0); Platelet Count 268 10^3/uL (150-450); Red Blood Count 4.34 10^6/uL (4.70-6.10); Red Cell Distribution Width 12.7 % (11.0-15.0)
[2024-05-15 06:21] LABS: Alanine Aminotransferase 18 U/L (16-63); Albumin Globulin Ratio 0.7; Albumin Level 2.7 g/dL (3.4-5.0); Alkaline Phosphatase 89 U/L (46-116); Anion Gap 16.1; Aspartate Amino Transferase 7 U/L (15-37); BUN Creatinine Ratio 19.3; Bilirubin Total 0.5 mg/dL (0.2-1.0); Calcium 8.7 mg/dL (8.5-10.1); Carbon Dioxide 23.9 mmol/L (21.0-32.0); Chloride 100 mmol/L (98-107); Estimated GFR (African America >60 (>=60 mL/min/1.73m^2); Estimated GFR (Non-African Ame >60 (>=60 mL/min/1.73m^2); Globulin 3.9 g/dL; Glucose 193 mg/dL (74-106); Sodium 136 mmol/L (136-145); Total Protein 6.6 g/dL (6.4-8.2)
[2024-05-15] MEDS: ENOXAPARIN SODIUM 40 MG/0.4 ML SYRINGE SUBQ (08:35)
--- NOTE | 2024-05-15 09:47 | CM.NOTE ---
Rounds made with Dr. Amador, unwrapped arm to view cellulitis and injury. Dr. Amador discussed with pt possible need for debridement and will consult ortho for further recommendations.
--- NOTE | 2024-05-15 10:29 | CT_ITS ---
The [address] [address] Patient Name: SANTO PHIPPS MRN: [id number] date: 1960 Sex: M Assigned Patient Location: [place] Current Patient Location: [place] Accession/Order Number: [id number] Exam Date: 05/15/2024 11:05 Report Date: 05/15/2024 12:44 At the request of: SHAIKH CAIT Procedure: CT forearm LT wo con EXAMINATION: CT forearm LT wo con HISTORY: Cellulitis, foreign body COMPARISON: No relevant comparison available. TECHNIQUE: Multi-planar CT images were created without IV contrast. Dose reduction techniques were achieved by using automated exposure control and/or adjustment of mA and/or kV according to patient size and/or use of iterative reconstruction technique. FINDINGS: BONES: No acute fracture or dislocation. Moderate degenerative changes of the elbow with marginal osteophyte formation and enthesopathic spurring. Mild degenerative changes of the wrist. SOFT TISSUES: Soft tissue injury along the volar forearm with extensive skin thickening and subcutaneous edema extending from the level of the elbow to the thenar eminence. No focal abscess collection is observed EFFUSION: None visible. OTHER: 2 mm radiopaque foreign body identified in the lateral subcutaneous fat along the diaphysis of the ulna. A second radiopaque foreign body is identified in the region of the soft tissue injury measuring 2 mm, best seen on axial image 65 along the midline volar forearm CT/CT forearm LT wo con IMPRESSION: Soft tissue injury and cellulitis 2 mm radiopaque foreign body volar midline mid to distal forearm Electronically authenticated by: GERALDINE SALAZAR Date: 05/15/2024 12:44
[2024-05-15 11:33] LABS: Glucometer 267 mg/dL (74-106)
--- OUTSIDE RECORDS SUMMARY | 2024-05-15 11:33 | XMS_ITS | CCD ---
Author Organization [facility] Care Team Providers Care Client Services Representative Name Role Phone MEGAN MATIAS Unavailable Unavailable [...] (Latrell) Inhibitors Drug allergy (disorder) 03-01-2016 [facility] Repository Problems Active Problems Problem Classification [...] Interpretation Reference Range Facility [place] 03-07-2023 Consent [id number]#1.00CD:12 7 [facility] Registrationon 03-07-2023 Registration [id number]#1.00CD:12 7 [facility] [place] 12-17-2022 Consent [id number]#1.00CD:1 27 [facility] In office Testingon 12-18-19 23 In office Testing [id number]#1.00CD:12 7 [facility] In office Testing [id number]#1.00CD:12 7 [facility] Registrationon 12-17-2022 Registration [id number]#1.00CD:1 27 [facility] GLYCOHEMOGLOBIN A1Con 2022 ADA RECOMMENDATION SEE BELOW Normal [facility] Comment on above: Result Comment: ADA RECOMMENDED LIMIT 4.0 - 6.0 ADA THERAPEUTIC TARGET < 7.0 ACTION SUGGESTED > 7.0 Performed By: #### A 1C #### [facility] [address] [address] [address] Kelton Ludwig Glucose [Mass/Vol] 263 mg/dL Normal [facility] Comment on above: Performed By: #### A 1C #### [facility] [address], [place] [address] Dr. Kelton Ludwig HbA1c (Bld) [Mass fraction] 10.8 % Critically high 4.5-6.[address] [facility] Comment on above: Performed By: #### A 1C #### [facility] [address] [address] [address] Kelton Ludwig [place] 06-18-2022 Consent [id number]#1.00CD:12 7 Normal [facility] In office Testingon 06-18-20 22 In office Testing [id number]#1.00CD:1 27 Normal [facility] Registrationon 06-18-2022 Registration [id number]#1.00CD:12 7 Normal [facility] MICROALBUMIN URINEon 022 Albumin, Urine 32.3 ug/mL Normal Not Estab. [facility] Comment on above: Performed By: #### M ALBLC #### [facility] [address] [address] [address] Kelton Ludwig VIT D 25-OH LABCORPon 2021 Vitamin D, 25-Hydroxy 37.9 ng/mL Normal 30.0-100.[address] [facility] Comment on above: Result Comment: Hemalatha min D deficiency has been defined by the [place] of Medicine and an Endocrine Society practice guideline as a level of serum 25-OH vitamin D less than 20 ng/mL (1,2). The Endocrine Society went on to further define vitamin D insufficiency as a level between 21 and 29 ng/mL (2). 1. IOM ([place] of Medicine). 2010. Dietary reference intakes for calcium and D. [place]: The National Academies Press. 2. German MF, Arturo NC, Dolores WAYNE, et al. Evaluation, treatment, and prevention of vitamin D deficiency: an Endocrine Society clinical practice guideline. JCEM. 2010; 96(7):1911-30. Performed By: #### V ITADLC #### [facility] [address], [place] [address] Dr. Kelton Ludwig CBC AUTO DIFFon 04-19-2022 BASO # 0.0 103/ul Normal 0.0-0.[address] [facility] Comment on above: Performed By: #### C BC #### [facility] [address], [place] [address] Dr. Kelton Ludwig Basophils/100 WBC (Bld) 0.6 % Normal 0.2-2.[address] [facility] Comment on above: Performed By: #### C BC #### [facility] [address] [place] [address] Dr. Kelton Ludwig EO # 0.3 103/ul Normal 0.0-0.[address] [facility] Comment on above: Performed By: #### C BC #### [facility] [address] [place] [address] Dr. Kelton Ludwig Eosinophils/100 WBC (Bld) 3.5 % Normal 0.9-7.[address] [facility] Comment on above: Performed By: #### C BC #### [facility] [address] [place] [address] Dr. Kelton Ludwig Erythrocyte distribution width (RBC) [Ratio] 12.6 % Normal 11.0-15.[address] [facility] Comment on above: Performed By: #### C BC #### [facility] [address] [place] [address] Dr. Kelton Ludwig Hematocrit (Bld) [Volume fraction] 44.6 % Normal 42.0-54.[address] [facility] Comment on above: Performed By: #### C BC #### [facility] [address] [place] [address] Dr. Kelton Ludwig Hemoglobin (Bld) [Mass/Vol] 14.1 g/dL Normal 14.0-18.[address] [facility] Comment on above: Performed By: #### C BC #### [facility] [address] [place] [address] Dr. Kelton Ludwig IG # 0.03 10e3/ul Normal 0.00-0.[address] [facility] Comment on above: Performed By: #### C BC #### [facility] [address] [place] [address] Dr. Kelton Ludwig IG % 0.4 % Normal 0.0-0.5 [facility] Comment on above: Performed By: #### C BC #### [facility] [address] [place] [address] Dr. Kelton Ludwig LYMPH # 1.2 103/ul Normal 1.2-3.8 [facility] Comment on above: Performed By: #### C BC #### [facility] [address] [place] [address] Dr. Kelton Ludwig Lymphocytes/100 WBC (Bld) 16.9 % Critically low 20.5-60.[address] [facility] Comment on above: Performed By: #### C BC #### [facility] [address] [place] [address] Dr. Kelton Ludwig MANUAL DIFF REQ NO Normal [facility] Comment on above: Performed By: #### C BC #### [facility] [address] [place] [address] Dr. Kelton Ludwig MCH (RBC) [Entitic mass] 29.7 pg Normal 25.9-34.[address] [facility] Comment on above: Performed By: #### C BC #### [facility] [address] [place] [address] Dr. Kelton Ludwig MCHC (RBC) [Mass/Vol] 31.6 g/dL Normal 29.9-35.[address] [facility] Comment on above: Performed By: #### C BC #### [facility] [address] [place] [address] Dr. Kelton Ludwig MCV (RBC) [Entitic vol] 94.1 fL Critically high 80.0-94.[address] [facility] Comment on above: Performed By: #### C BC #### [facility] [address] [place] [address] Dr. Kelton Ludwig MONO # 0.5 103/ul Normal 0.3-0.[address] [facility] Comment on above: Performed By: #### C BC #### [facility] [address] [place] [address] Dr. Kelton Ludwig Monocytes/100 WBC (Bld) 7.3 % Normal 1.7-12.0 [facility] Comment on above: Performed By: #### C BC #### [facility] [address] [place] [address] Dr. Kelton Ludwig NEUT # 5.1 103/ul Normal 1.4-6.[address] [facility] Comment on above: Performed By: #### C BC #### [facility] [address] [address] [address] Kelton Ludwig Neutrophils/100 WBC (Bld) 71.3 % Normal 43.0-75.[address] [facility] Comment on above: Performed By: #### C BC #### [facility] [address] [address] [address] Kelton Ludwig Platelet mean volume (Bld) [Entitic vol] 10.3 fL Normal 9.5-13.[address] [facility] Comment on above: Performed By: #### C BC #### [facility] [address] [address] [address] Kelton Ludwig PLT 221 103/ul Normal 150-[address] [facility] Comment on above: Performed By: #### C BC #### [facility] [address] [place] [address] Dr. Kelotn Ludwig RBC 4.74 106/ul Normal 4.70-6.[address] [facility] Comment on above: Performed By: #### C BC #### [facility] [address] [place] [address] Dr. Kelton Ludwig WBC 7.1 103/ul Normal 4.0-11.[address] [facility] Comment on above: Performed By: #### C BC #### [facility] [address] [place] [address] Dr. Kelton Ludwig GLYCOHEMOGLOBIN A1Con 2021 ADA RECOMMENDATION SEE BELOW Normal [facility] Comment on above: Result Comment: ADA RECOMMENDED LIMIT 4.0 - 6.0 ADA THERAPEUTIC TARGET < 7.0 ACTION SUGGESTED > 7.0 Performed By: #### A 1C #### [facility] [address] [place] [address] Dr. Kelton uLdwig Glucose [Mass/Vol] 194 mg/dL Normal [facility] Comment on above: Performed By: #### A 1C #### [facility] [address] [place] [address] Dr. Kelton Ludwig HbA1c (Bld) [Mass fraction] 8.4 % Critically high 4.5-6.[address] [facility] Comment on above: Performed By: #### A 1C #### [facility] [address] [address] [address] Kelton Ludwig LIPID PROFILEon 04-19-2022 CHOL-HDL RATIO NORM SEE BELOW Normal [facility] Comment on above: Result Comment: 3.3 - 4.4 LOW RISK 4.4 - 7.1 AVERAGE RISK 7.1 - 11.0 MODERATE RISK >11.0 HIGH RISK Performed By: #### T SH, LIPID, BMP, LIVER #### [facility] [address] [address] [address] Kelton Ludwig Cholesterol [Mass/Vol] 179 mg/dL Normal <=[address] [facility] Comment on above: Performed By: #### T SH, LIPID, BMP, LIVER #### [facility] [address] [address] [address] Kelton Ludwig Cholesterol in HDL [Mass/Vol] 49 mg/dL Normal 40-[address] [facility] Comment on above: Performed By: #### T SH, LIPID, BMP, LIVER #### [facility] [address] [address] [address] Kelton Ludwig Cholesterol in LDL [Mass/Vol] 118.4 mg/dL Normal [facility] Comment on above: Performed By: #### T SH, LIPID, BMP, LIVER #### [facility] [address] [address] [address] Kelton Ludwig Cholesterol.total/C holesterol in HDL [Mass ratio] 3.7 {ratio} Normal [facility] Comment on above: Performed By: #### T SH, LIPID, BMP, LIVER #### [facility] [address] [address] [address] Kelton Ludwig HDL NORMAL > or = 60 mg/dl - LO W CARDIOVASCULAR RISK <40 mg/dl - HIGH CARDIOVASCULAR RISK Normal [facility] Comment on above: Performed By: #### T SH, LIPID, BMP, LIVER #### [facility] [address] [address] [address] Kelton Ludwig LDL CALC NORMAL SEE BELOW Normal [facility] Comment on above: Result Comment: <100 mg/dl OPTIMAL 100 - 129 mg/dl NEAR OR ABOVE OPTIMAL 130 - 159 mg/dl BORDERLINE HIGH 160 - 189 mg/dl HIGH >190 mg/dl VERY HIGH Performed By: #### T SH, LIPID, BMP, LIVER #### [facility] [address] [place] [address] Dr. Kelton Ludwig Triglyceride [Mass/Vol] 58 mg/dL Normal <=[address] [facility] Comment on above: Performed By: #### T SH, LIPID, BMP, LIVER #### [facility] [address] [place] [address] Dr. Kelton Ludwig VLDL CALC 11.6 mg/dL Normal [facility] Comment on above: Performed By: #### T SH, LIPID, BMP, LIVER #### [facility] [address] [place] [address] Dr. Kelton Ludwig LIVER PROFILEon 04-19-2022 Albumin [Mass/Vol] 3.8 g/dL Normal 3.4-5.0 [facility] Comment on above: Performed By: #### T SH, LIPID, BMP, LIVER #### [facility] [address] [place] [address] Dr. Kelton Ludwig Albumin/Globulin [Mass ratio] 1.3 {ratio} Normal [facility] Comment on above: Performed By: #### T SH, LIPID, BMP, LIVER #### [facility] [address] [place] [address] Dr. Kelton Ludwig ALP [Catalytic activity/Vol] 51 U/L Normal 46-[address] [facility] Comment on above: Performed By: #### T SH, LIPID, BMP, LIVER #### [facility] [address] [place] [address] Dr. Kelton Ludwig ALT [Catalytic activity/Vol] 18 U/L Normal 16-[address] [facility] Comment on above: Performed By: #### T SH, LIPID, BMP, LIVER #### [facility] [address] [place] [address] Dr. Kelton Ludwig AST [Catalytic activity/Vol] 12 U/L Critically low 15-[address] [facility] Comment on above: Performed By: #### T SH, LIPID, BMP, LIVER #### [facility] [address] [place] [address] Dr. Kelton Ludwig BILI, CONJUGATED 0.2 mg/dL Normal 0.0-0.2 [facility] Comment on above: Performed By: #### T SH, LIPID, BMP, LIVER #### [facility] [address] [place] [address] Dr. Kelton Ludwig Bilirubin [Mass/Vol] 0.6 mg/dL Normal 0.2-1.[address] [facility] Comment on above: Performed By: #### T SH, LIPID, BMP, LIVER #### [facility] [address] [place] [address] Dr. Kelton Ludwig Globulin (S) [Mass/Vol] 3.0 g/dL Normal [facility] Comment on above: Performed By: #### T SH, LIPID, BMP, LIVER #### [facility] [address] [place] [address] Dr. Kelton Ludwig Protein [Mass/Vol] 6.8 g/dL Normal 6.4-8.[address] [facility] Comment on above: Performed By: #### T SH, LIPID, BMP, LIVER #### [facility] [address] [place] [address] Dr. Kelton Ludwig PROF CHEM 8 (BAS METB)on Anion gap [Moles/Vol] 8.2 mmol/L Normal [facility] Comment on above: Performed By: #### T SH, LIPID, BMP, LIVER #### [facility] [address] [place] [address] Dr. Kelton Ludwig Calcium [Mass/Vol] 8.9 mg/dL Normal 8.5-10.[address] [facility] Comment on above: Performed By: #### T SH, LIPID, BMP, LIVER #### [facility] [address] [place] [address] Dr. Kelton Ludwig Chloride [Moles/Vol] 104 mmol/L Normal 98-107 [facility] Comment on above: Performed By: #### T SH, LIPID, BMP, LIVER #### [facility] [address] [address] [address] Kelton Ludwig CO2 [Moles/Vol] 31.2 mmol/L Normal 21.0-32.0 [facility] Comment on above: Performed By: #### T SH, LIPID, BMP, LIVER #### [facility] [address] [address] [address] Kelton Ludwig Creatinine [Mass/Vol] 1.08 mg/dL Normal 0.70-1.[address] [facility] Comment on above: Performed By: #### T SH, LIPID, BMP, LIVER #### [facility] [address] [address] [address] Kelton Ludwig EGFR-AF KITTITIAN >60 Normal >=60 [facility] Comment on above: Performed By: #### T SH, LIPID, BMP, LIVER #### [facility] [address] [place] [address] Dr. Kelton Ludwig EGFR-NON AF KITTITIAN >60 Normal >=[address] [facility] Comment on above: Performed By: #### T SH, LIPID, BMP, LIVER #### [facility] [address] [address] [address] Kelton Ludwig Glucose [Mass/Vol] 171 mg/dL Critically high 74-106 [facility] Comment on above: Performed By: #### T SH, LIPID, BMP, LIVER #### [facility] [address] [address] [address] Kelton Ludwig Potassium [Moles/Vol] 4.4 mmol/L Normal 3.5-5.[address] [facility] Comment on above: Performed By: #### T SH, LIPID, BMP, LIVER #### [facility] [address] [address] [address] Kelton Ludwig Sodium [Moles/Vol] 139 mmol/L Normal 136-145 [facility] Comment on above: Performed By: #### T SH, LIPID, BMP, LIVER #### [facility] [address] [address] [address] Kelton Ludwig Urea nitrogen [Mass/Vol] 20.0 mg/dL Critically high 7.0-18.[address] [facility] Comment on above: Performed By: #### T SH, LIPID, BMP, LIVER #### [facility] [address], [place] [address] Dr. Kelton Ludwig Urea nitrogen/Creatinine [Mass ratio] 18.5 mg/mg Normal [facility] Comment on above: Performed By: #### T SH, LIPID, BMP, LIVER #### [facility] [address], [place] [address] Dr. Kelton Ludwig TSHon 04-19-2022 TSH 0.837 uIU/mL Normal 0.358-3.740 [facility] Comment on above: Performed By: #### T SH, LIPID, BMP, LIVER #### [facility] [address], [place] [address] Dr. Kleton Ludwig Progress Noteon 03-31-2018 HIM IP Note OR Winder Hand Normal [facility] HIM IP Note OR [place] Normal [facility] Progress Noteon 01-03-2018 HIM IP Note OR [place] Normal [facility] Progress Noteon 12-23-2017 HIM IP Note OR [place] Normal [facility] Progress Noteon 12-09-2017 HIM IP Note OR [place] Normal [facility] Progress Noteon 12-06-2017 HIM IP Note OR [place] Normal [facility] Discharge Summaryon 10-23-19 18 HIM IP Note OR [place] Normal [facility] Plan of Careon 10-22-2017 HIM IP Note OR [place] Normal [facility] HIM IP Note OR [place] Normal [facility] Progress Noteon 10-22-2017 HIM IP Note OR [place] Normal [facility] HIM IP Note OR [place] Normal [facility] Interval History and Physion 10-21-2017 HIM IP Note OR [place] Hand Normal [facility] OPERATIVE REPORTon 8 OPERATIVE REPORT [address] [address] OPERATIVE REPORTPATIENT NAME: SANTO PHIPPS : 1960[facility] REC NO: [id number] ROOM: [address] [place] [address] NO: [id number] ADMIT DATE: 10/21/2017PROVIDER: Megan Matias, MDDATE OF [...] the disk space. We then placed our Parker pins to mobilizethe space. We gently distracted [...] recovery room.MEGAN MATIAS, MDD: 10/21/2017 10:38:52 [id number]#: [id number] Doc#: [id number]: Megan Matias MD Normal [facility] Op Noteon 10-21-2017 HIM IP Note OR Winder Hand Normal [facility] Progress Noteon 10-21-2017 HIM IP Note OR [place] Normal [facility] HIM IP Note OR [place] Hand Normal [facility] HIM IP Note OR [place] Hand Normal [facility] XR CERVICAL SPINE 1 VWon XR CERVICAL SPINE 1 VW Radiology exam is complete. No Radiologist dictation. Please follow up with ordering provider. Final result Normal [facility] Protein mass conc EXAMINATION:1 VIEW O F [...] by:GLORIA Sheldonigned by:Judy Mendez MD3/19/18Final result Normal [facility] XR CERVICAL SPINE 1 VW Radiology exam is complete. No Radiologist dictation. Please follow up with ordering provider. Final result Normal [facility] BUN + Creatinineon 8 (cont.) Normal [facility] Comment on above: Result Comment: Aver age GFR for 50-59 years old: 93 mL/min/1.73sq mChronic Kidney Disease: <60 mL/min/1.73sq mKidney failure: <15 mL/min/1.73sq meGFR calculated using average adult body mass. Additional eGFR calculator available at:[email or web address]_[email or web address] [address] Performed By: #### B UNCRT, GLU, LYTE ####[facility] [address] [place] [address] Creatinine mass conc 0.75 mg/dL Normal 0.70-1.20 [facility] Comment on above: Performed By: #### B UNCRT, GLU, LYTE ####[facility] [address] [place] [address] GFR, Amer >60 Normal >60 [facility] Comment on above: Performed By: #### B UNCRT, GLU, LYTE ####[facility] [address] [place] [address] GFR,non Amer >60 Normal >60 [facility] Comment on above: Performed By: #### B UNCRT, GLU, LYTE ####[facility] [address] [place] [address] Urea nitrogen mass conc 10 mg/dL Normal 6-20 [facility] Comment on above: Performed By: #### B UNCRT, GLU, LYTE ####[facility] [address] [place] [address] Staging: NOT REPORTED Normal [facility] Comment on above: Performed By: #### B UNCRT, GLU, LYTE ####[facility] [address] [place] [address] Electrolyteson 10-09-2017 Anion gap 3 molar conc 11 mmol/L Normal 9-17 [facility] Comment on above: Result Comment: [facility] [address] [place] [address] Performed By: #### B UNCRT, GLU, LYTE ####[facility] [place] [facility] [address] [place] [address] Chloride molar conc 101 mmol/L Normal 98-107 [facility] Comment on above: Performed By: #### B UNCRT, GLU, LYTE ####[facility] [place] [facility] [address] [place] [address] CO2 molar conc 27 mmol/L Normal 20-31 [facility] Comment on above: Performed By: #### B UNCRT, GLU, LYTE ####[facility] [place] [facility] [address] [place] [address] Potassium molar conc 4.0 mmol/L Normal 3.7-5.3 [facility] Comment on above: Performed By: #### B UNCRT, GLU, LYTE ####[facility] [place] [facility] [address] [place] [address] Sodium molar conc 139 mmol/L Normal 135-144 [facility] Comment on above: Performed By: #### B UNCRT, GLU, LYTE ####[facility] [place] [facility] [address] [place] [address] Glucoseon 10-09-2017 Glucose mass conc 149 mg/dL High 70-99 [facility] Comment on above: Result Comment: [facility] [address] [place] [address] Performed By: #### B UNCRT, GLU, LYTE ####[facility] [address] [place] [address] History and Physicalon 10-09 HIM IP Note OR Winder Hand Normal [facility] Progress Noteon 10-09-2017 HIM IP Note OR W[place] Hand Normal [facility] Encounters Encounter Date Encounter Type Care Provider [...] Facility:[facility]1 Start: 07-10-[address] ROBERTO BANG [facility] ity:H1 Start: 06-18-2022 End: 06-19-2022 ambulatory Ivanna TREADWELL [facility] Start: 04-22-2022 Encounter for genera l adult medical examination without abnormal findings DR ROBERTO BANG [facility] Start: 04-19-2022 End: 04-20-[address] ROBERTO BANG Facility:[facility] Start: 04-19-2022 End: 04-20-2022 Encounter for general adult medical examination without abnormal findings DR ROBERTO BANG Facility:[facility]1 Start: 10-21-2017 End: 10-22-2017 Evaluation and management of inpatient MEGAN MATIAS [facility] Start: 10-09-2017 End: 10-14-2017 Patient encounter MEGAN ESQUIVELJACOB [facility] Procedures Date Procedure Procedure Detail Performing Clinician Start: 04-19-[address] ROBERTO SANCHEZ Comment on above: Performed By: #### [facility] #### [facility] [address] [place] [address] Dr. Kelton Ludwig Start: 10-22-2017 DISCHARGE PATIENT KAYLIN Lyons JOEL Start: 10-22-2017 POC GLUCOSE FINGERSTICK MEGAN ALVINASIMA Start: 10-22-2017 POC GLUCOSE FINGERSTICK MEGAN MATIAS [...] VINCENT Payers Date Payer Category Payer Unknown [id number] 2022 Unknown [id number] 2014 Unknown [id number] 1960 Private Health Insurance [id number] 1960 Self-pay 1960 Unknown [id number] 2.16.84 [id number] 1960 Unknown [id number] 2.16.84 [id number] 1960 Unknown [id number] 2.16.84 [id number] 1960 Unknown [id number] 2.16.84 [id number] 1960 Unknown [id number] 2.16.84 [id number] Summary Purpose Family History No Family History [...] section and content) DATE CREATED AUTHOR 04/02/2018 [facility] DATE CREATED AUTHOR AUTHOR'S ORGANIZ ATION 12/03/2022 [facility] DATE CREATED AUTHOR AUTHOR'S ORGANIZ ATION 03/08/2023 [facility] DATE CREATED AUTHOR AUTHOR'S ORGANIZ ATION 01/02/2024 [facility] FOR RECORDS PERTAINING TO PATIENTS WHO [...] BE BASED ON THE PRIMARY CLINICAL RECORDS. [facility] [employer] [facility]. provides no warranty or guarantee of the accuracy or completeness of information in this document.
[2024-05-15] MEDS: INSULIN ASPART 300 UNIT/3 ML PEN SUBQ ×3 (11:35→21:05)
[2024-05-15 12:00] VITALS: O2SAT 93
--- NOTE | 2024-05-15 13:07 | P.HP_ITS ---
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 He reports considerable bleeding afterwards but then bleeding stopped after a couple of days of him dressing his wound/injury at home. About 2 weeks ago he started to notice erythema, swelling in his left forearm. He then noticed purulent discharge. His pain/erythema and purulent discharge progressively worsened until yesterday when he came to ER for further evaluation. X-ray of the left forearm revealed possible foreign object within subcutaneous tissue. He was admitted overnight for cellulitis and started on IV vancomycin and IV Ancef. He has had no improvement overnight and has considerable pain, erythema, purulent discharge. Upon exam I suspect there is underlying abscess also. I ordered a CT left forearm to rule out underlying abscess and to confirm the presence of foreign body. Patient was initially admitted as observation but changed to inpatient as he has extensive cellulitis of his left forearm associated foreign object, possible underlying abscess and is at high risk of amputation/loss of limb if not treated appropriately with IV antibiotics and will require close inpatient monitoring to ensure clinical improvement/progression. Patient has type 2 diabetes that is poorly controlled with most recent A1c was 9.9. Opioid HPI Opioid Management Most Recent Pain and Opioid Data: Last Pain Assessment 05/15/24 12:01 Last ORT Total Score 0 05/14/24 19:49 05/14/24 Last ORT Risk Category Low Risk 05/14/24 19:49 05/14/24 Review of Systems ROS Status of ROS 10 or more systems reviewed and unremark able except as noted in history and below [facility] Medical History (Updated 05/15/24 @ 13:21 by Shaikh Marjorie MD) HLD (hyperlipidemia) ?E78.5 - Hyperlipidemia, unspecified (ICD-10) Cervical stenosis of spine ?M48.02 - Spinal stenosis, cervical region (ICD-10) Sleep apnea ?G47.30 - Sleep apnea, unspecified (ICD-10) HTN (hypertension) ?I10 - Essential (primary) hypertension (ICD-10) Diabetes ?E11.9 - Type 2 diabetes mellitus without complications (ICD-10) Surgical History (Updated 05/14/24 @ 22:32 by Elizabeth Aguilar, RACHELLE) History of bariatric surgery ?Z98.84 - Bariatric surgery status (ICD-10) Family History (Updated 05/14/24 @ 19:47 by Elizabeth Aguilar, RN) Father Family history of CHF (congestive heart failure) Family history of diabetes mellitus Family history of hypertension Family history of myocardial infarction Mother Family history of CHF (congestive heart failure) Family history of cancer Family history of diabetes mellitus Social History (Updated 05/14/24 @ 19:48 by Elizabeth Aguilar, RN) Within the past year, how often did you have a drink containing alcohol: 2-4 times a month Within the past year, how many standard drinks containing alcohol did you have on a typical day: 1 or 2 Within the past year, how often did you have six or more drinks on one occasion: never Total score: 0 Score interpretation: A score less than 4 is consistent with normal alcohol consumption. Smoking status: Former smoker Non-prescribed substance use: denies use Highest level of school completed/degree received: Bachelor's degree Are you now , , , , never or living with a partner: In a typical week, how many times do you talk on the telephone with family, friends, or neighbors: 3 or more times per week How often do you get together with friends or relatives: 3 or more times per week How often do you attend mu-ism or anabaptism services: never Little interest or pleasure in doing things: not at all Feeling down, depressed, or hopeless: not at all Do you think of yourself as: straight/heterosexual Gender Identity: male Meds Home Medications and Allergies Home Medications ?Medication ?Instructions ?Recorded ?Confirmed ?Type atorvastatin 40 mg tablet 40 mg PO BEDTIME 05/14/24 05/14/24 History blood sugar diagnostic (True 05/14/24 05/14/24 History Metrix Glucose Test Strip) citalopram 40 mg tablet 40 mg PO DAILY 05/14/24 05/14/24 History empagliflozin 25 mg tablet 25 mg PO DAILY 05/14/24 05/14/24 History (Jardiance) glipizide 10 mg tablet 20 mg PO BID 05/14/24 05/14/24 History hydrochlorothiazide 25 mg tablet 25 mg PO DAILY 05/14/24 05/14/24 History metformin 1,000 mg tablet 1,000 mg PO BID 05/14/24 05/14/24 History pantoprazole 40 mg tablet,delayed 40 mg PO DAILY 05/14/24 05/14/24 History release pioglitazone 45 mg tablet 45 mg PO DAILY 05/14/24 05/14/24 History primidone 50 mg tablet 100 mg PO BEDTIME 05/14/24 05/14/24 History Allergies Allergy/AdvReac Type Severity Reaction Status Date / Time No Known Drug Allergies Allergy Verified 05/14/24 16:30 Exam Constitutional Vital Signs, click to edit/add: Last Vital Signs Temp 98 F 05/15/24 06:00 Pulse 78 05/15/24 06:00 Resp 18 05/15/24 06:00 BP 157/80 H 05/15/24 06:00 Pulse Ox 93 L 05/15/24 12:00 O2 Del Method Room Air 05/15/24 12:00 Documenting provider has reviewed patient's vital signs: yes Common normals: no apparent distress and oriented x3 General appearance: cooperative HENMT Common normals: normocephalic and head/scalp atraumatic Head and scalp: normocephalic and atraumatic Eye Common normals: conjunctivae normal and no scleral icterus Conjunctiva: conjunctiva(e) normal Respiratory Common normals: normal respiratory effort and clear to auscultation bilaterally Effort & inspection: able to speak in complete sentences Auscultation: clear to auscultation bilaterally Cardio Common normals: regular rate, S1 normal heart sound and S2 normal heart sound Rate: regular rate Heart sounds: S1 normal and S2 normal GI Common normals: Normal to inspection, nondistended, normoactive bowel sounds present, soft to palpation, non-tender and no hepatosplenomegaly Palpation: soft and no hepatosplenomegaly Extremity Other: Left forearm - one laceration close about 4-5 cm close to wrist. Area of erythema/indurated skin/tenderness extending from Wrist and ends just before elbow joint. Fluctuance noted, another laceration noted in mid foreram that is draining purulent fluid. Patient able to move his hand joints but reports pain on hand/finger movement. Neuro Common normals: oriented x3, moves all extremities and no focal motor deficits Psych Common normals: mental status grossly normal, denies hallucinations, denies homicidal ideation and denies suicidal ideation Results Labs Labs: Short CBC 05/14/24 05/15/24 Range/Units 17:06 05:41 WBC 10.7 9.0 (4.0-11.0) 10^3/uL Hgb 12.8 L 12.8 L (14.0-18.0) g/dL Hct 38.6 L 39.7 L (42.0-54.0) % Plt Count 283 268 (150-450) 10^3/uL BMP 05/14/24 05/15/24 17:06 05:41 Sodium 129 L 136 Potassium 4.1 4.0 Chloride 94 L 100 Carbon Dioxide 24.8 23.9 BUN 26.0 H 21.0 H Creatinine 1.29 1.09 Glucose 268 H 193 H Calcium 9.2 8.7 Liver Function 05/14/24 05/15/24 Range/Units 17:06 05:41 Total Bilirubin 0.5 0.5 (0.2-1.0) mg/dL AST 11 L 7 L (15-37) U/L ALT 20 18 (16-63) U/L Alkaline Phosphatase 108 89 (46-116) U/L Albumin 2.9 L 2.7 L (3.4-5.0) g/dL Assessment and Plan Assessment and Plan (1) Cellulitis: Assessment and Plan: Extensive cellulitis of LUE, associated foreign body - suspected metal piece from injury. No discernable abscess on CT. Initially on IV vancomycin/ancef. No improvement overnight with IV abx. Added Zosyn. C/w IV vancomycin. Orthopedic surgery consulted. At high risk of limb loss if not treated appropriately. Qualifiers: Site of cellulitis: extremity Site of cellulitis of extremity: upper extremity Laterality: left Qualified Code(s): L03.114 - Cellulitis of left upper limb (2) Diabetes: Assessment and Plan: Poorly controlled, on oral hypoglycemics as outpatient. SSI while inpatient. 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
[2024-05-15 14:23] VITALS: BP 116/66; PULSE 75; TEMP 36.7; O2SAT 96
[2024-05-15 16:30] LABS: Glucometer 168 mg/dL (74-106)
--- NOTE | 2024-05-15 16:35 | PM.ORCN ---
History of Present Illness HPI Consult date: 05/15/24 Requesting physician: Shaikh Marjorie Chief complaint: Physician Referral Narrative: Migue is a 63-year-old male with DM type II, HTN, and HLD that presented to the ED yesterday after he was sent by his PCP for IV antibiotics. 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 He has not sought medical attention until yesterday. Two weeks ago he developed erythema and drainage from the wounds which extended to his wrist. There is a break in the skin on the ventral aspect of the wrist from the swelling. The erythema and swelling have since extended up the upper arm. Patient denies fever, night sweats, chills. Patient was placed on IV antibiotics and admitted to the hospitalist. Orthopedics was consulted by the hospitalist. Patient states that pain is controlled now. 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 [facility] Medical History (Updated 05/15/24 @ 13:21 by Shaikh Marjorie MD) HLD (hyperlipidemia) ?E78.5 - Hyperlipidemia, unspecified (ICD-10) Cervical stenosis of spine ?M48.02 - Spinal stenosis, cervical region (ICD-10) Sleep apnea ?G47.30 - Sleep apnea, unspecified (ICD-10) HTN (hypertension) ?I10 - Essential (primary) hypertension (ICD-10) Diabetes ?E11.9 - Type 2 diabetes mellitus without complications (ICD-10) Surgical History (Updated 05/14/24 @ 22:32 by Elizabeth Aguilar RN) History of bariatric surgery ?Z98.84 - Bariatric surgery status (ICD-10) Family History (Updated 05/14/24 @ 19:47 by Elizabeth Aguilar RN) Father Family history of CHF (congestive heart failure) Family history of diabetes mellitus Family history of hypertension Family history of myocardial infarction Mother Family history of CHF (congestive heart failure) Family history of cancer Family history of diabetes mellitus Social History (Updated 05/14/24 @ 19:48 by Elizabeth Aguilar RN) Within the past year, how often did you have a drink containing alcohol: 2-4 times a month Within the past year, how many standard drinks containing alcohol did you have on a typical day: 1 or 2 Within the past year, how often did you have six or more drinks on one occasion: never Total score: 0 Score interpretation: A score less than 4 is consistent with normal alcohol consumption. Smoking status: Former smoker Non-prescribed substance use: denies use Highest level of school completed/degree received: Bachelor's degree Are you now , , , , never or living with a partner: In a typical week, how many times do you talk on the telephone with family, friends, or neighbors: 3 or more times per week How often do you get together with friends or relatives: 3 or more times per week How often do you attend druze or sikh services: never Little interest or pleasure in doing things: not at all Feeling down, depressed, or hopeless: not at all Do you think of yourself as: straight/heterosexual Gender Identity: male Meds Home Medications and Allergies Home Medications ?Medication ?Instructions ?Recorded ?Confirmed ?Type atorvastatin 40 mg tablet 40 mg PO BEDTIME 05/14/24 05/14/24 History blood sugar diagnostic (True 05/14/24 05/14/24 History Metrix Glucose Test Strip) citalopram 40 mg tablet 40 mg PO DAILY 05/14/24 05/14/24 History empagliflozin 25 mg tablet 25 mg PO DAILY 05/14/24 05/14/24 History (Jardiance) glipizide 10 mg tablet 20 mg PO BID 05/14/24 05/14/24 History hydrochlorothiazide 25 mg tablet 25 mg PO DAILY 05/14/24 05/14/24 History metformin 1,000 mg tablet 1,000 mg PO BID 05/14/24 05/14/24 History pantoprazole 40 mg tablet,delayed 40 mg PO DAILY 05/14/24 05/14/24 History release pioglitazone 45 mg tablet 45 mg PO DAILY 05/14/24 05/14/24 History primidone 50 mg tablet 100 mg PO BEDTIME 05/14/24 05/14/24 History Allergies Allergy/AdvReac Type Severity Reaction Status Date / Time No Known Drug Allergies Allergy Verified 05/14/24 16:30 Exam Narrative Exam Narrative: Patient sitting up in the bed eating M&Ms watching TV on my arrival. Patient is age-appropriate, alert and oriented x 3. Left forearm is dressed with Kerlix and is clean/dry/intact. Dressing removed to reveal two wounds noted to left forearm. There is purulent drainage from the wound; copious amount. Surrounding erythema with induration, swelling that extends down to the wrist and up the arm to the mid upper medial arm. There is a break in the skin on the ventral aspect of the wrist; it is scabbed over with no drainage. Sensation intact to light touch distally. 2+ radial pulse palpated. Less than 2-second capillary refill to all fingers and thumb. Constitutional Vital Signs, click to edit/add: Last Vital Signs Temp 98.0 F 05/15/24 14:23 Pulse 75 05/15/24 14:23 Resp 18 05/15/24 14:23 BP 116/66 05/15/24 14:23 Pulse Ox 96 05/15/24 14:23 O2 Del Method Room Air 05/15/24 14:23 Results Labs Labs: Abnormal lab results 05/14/24 05/15/24 05/15/24 Range/Units 17:06 05:41 11:31 RBC 4.29 L 4.34 L (4.70-6.10) 10^6/uL Hgb 12.8 L 12.8 L (14.0-18.0) g/dL Hct 38.6 L 39.7 L (42.0-54.0) % MPV 9.4 L (9.5-13.5) fL Neut % (Auto) 77.0 H (43.0-75.0) % Lymph % (Auto) 11.2 L 14.9 L (20.5-60.0) % Neut # (Auto) 8.2 H (1.4-6.5) 10^3/uL [place] # (Auto) 1.0 H 0.9 H (0.3-0.8) 10^3/uL Abs Immat Gran (auto) 0.06 H 0.05 H (0.00-0.03) 10^3/uL Imm/Tot Granulo (auto) 0.6 H 0.6 H (0.0-0.5) % Sodium 129 L (136-145) mmol/L Chloride 94 L (98-107) mmol/L BUN 26.0 H 21.0 H (7.0-18.0) mg/dL Est GFR (Non-Af Amer) 56 L (>=60 mL/min/1.73m^2) Glucose 268 H 193 H (74-106) mg/dL AST 11 L 7 L (15-37) U/L Albumin 2.9 L 2.7 L (3.4-5.0) g/dL POC Glucose 267 H (74-106) mg/dL 05/15/24 Range/Units 16:25 RBC (4.70-6.10) 10^6/uL Hgb (14.0-18.0) g/dL Hct (42.0-54.0) % MPV (9.5-13.5) fL Neut % (Auto) (43.0-75.0) % Lymph % (Auto) (20.5-60.0) % Neut # (Auto) (1.4-6.5) 10^3/uL [place] # (Auto) (0.3-0.8) 10^3/uL Abs Immat Gran (auto) (0.00-0.03) 10^3/uL Imm/Tot Granulo (auto) (0.0-0.5) % Sodium (136-145) mmol/L Chloride (98-107) mmol/L BUN (7.0-18.0) mg/dL Est GFR (Non-Af Amer) (>=60 mL/min/1.73m^2) Glucose (74-106) mg/dL AST (15-37) U/L Albumin (3.4-5.0) g/dL POC Glucose 168 H (74-106) mg/dL H & H 05/14/24 05/15/24 Range/Units 17:06 05:41 Hgb 12.8 L 12.8 L (14.0-18.0) g/dL Hct 38.6 L 39.7 L (42.0-54.0) % All other labs normal. Assessment and Plan Assessment and Plan (1) Cellulitis: Assessment and Plan: Cellulitis and infected wounds to L forearm s/p instrument lens grinder apprentice (power tool) accident 5 weeks ago. - XR and CT w/o contrast reviewed and resulted as Soft tissue injury and cellulitis with a 2 mm radiopaque foreign body volar midline mid to distal forearm - Vanc/Ancef started in ED yesterday, Isak added today. - WBC 9, afebrile - MRI w/ w/o contrast for L forearm recommended, MRI not available until Saturday - Stop AC (Lovenox) for possible surgery tomorrow, NPO at midnight Discussed with my Supervising Physician, Dr Oglesby. 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
--- NOTE | 2024-05-15 16:54 | PC.NURSE ---
Ortho PA ordered MRI. MRI is not available until saturday. Sravanthi is aware. Order has been dc'd
[2024-05-15] MEDS: PIPERACILLIN SODIUM/TAZOBACTAM 3.375 GM in 0.9 % SODIUM CHLORIDE 50 ML IV (17:17)
[2024-05-15] MEDS: VANCOMYCIN HCL 1,500 MG in 0.9 % SODIUM CHLORIDE 500 ML 250 MG IV (17:58)
[2024-05-15 19:52] VITALS: O2SAT 94
[2024-05-15 20:38] LABS: Glucometer 295 mg/dL (74-106)
[2024-05-15] MEDS: ATORVASTATIN CALCIUM 40 MG TABLET PO (21:05)
[2024-05-15] MEDS: PRIMIDONE 50 MG TABLET 100 MG PO (21:05)
[2024-05-15 21:55] VITALS: BP 148/76; PULSE 81; TEMP 37.1; O2SAT 97
[2024-05-16] VITALS (21 sets, daily range): BP systolic 130–168; BP diastolic 70–95; PULSE 63–95; TEMP 36.1–36.6; O2SAT 94–100
[2024-05-16] MEDS: PIPERACILLIN SODIUM/TAZOBACTAM 3.375 GM in 0.9 % SODIUM CHLORIDE 50 ML IV ×3 (01:50→16:57)
[2024-05-16] MEDS: VANCOMYCIN HCL 1,500 MG in 0.9 % SODIUM CHLORIDE 500 ML 250 MG IV ×2 (05:27→18:00)
[2024-05-16 06:20] LABS: Basophils Absolute Auto 0.1 10^3/uL (0.0-0.1); Basophils Percent Auto 0.6 % (0.2-2.0); Eosinophils Absolute Auto 0.3 10^3/uL (0.0-0.7); Eosinophils Percent Auto 3.9 % (0.9-7.0); Hematocrit 42.3 % (42.0-54.0); Hemoglobin 13.7 g/dL (14.0-18.0); Immature Granulocytes Abs Auto 0.04 10^3/uL (0.00-0.03); Immature Granulocytes Pct Auto 0.5 % (0.0-0.5); Lymphocytes Absolute Auto 1.3 10^3/uL (1.2-3.8); Lymphocytes Percent Auto 15.8 % (20.5-60.0); Mean Corpuscular HGB Conc 32.4 g/dL (29.9-35.2); Mean Corpuscular Hemoglobin 29.7 pg (25.9-34.0); Mean Corpuscular Volume 91.8 fL (80.0-94.0); Mean Platelet Volume 9.3 fL (9.5-13.5); Monocytes Absolute Auto 0.7 10^3/uL (0.3-0.8); Monocytes Percent Auto 8.8 % (1.7-12.0); Neutrophils Absolute Auto 5.8 10^3/uL (1.4-6.5); Neutrophils Percent Auto 70.4 % (43.0-75.0); Platelet Count 314 10^3/uL (150-450); Red Blood Count 4.61 10^6/uL (4.70-6.10); Red Cell Distribution Width 12.7 % (11.0-15.0); White Blood Count 8.2 10^3/uL (4.0-11.0)
[2024-05-16 06:37] LABS: Alanine Aminotransferase 17 U/L (16-63); Albumin Globulin Ratio 0.6; Albumin Level 2.7 g/dL (3.4-5.0); Alkaline Phosphatase 94 U/L (46-116); Anion Gap 16.7; Aspartate Amino Transferase 12 U/L (15-37); BUN Creatinine Ratio 16.4; Bilirubin Total 0.6 mg/dL (0.2-1.0); Calcium 8.9 mg/dL (8.5-10.1); Carbon Dioxide 23.5 mmol/L (21.0-32.0); Chloride 101 mmol/L (98-107); Estimated GFR (African America >60 (>=60 mL/min/1.73m^2); Estimated GFR (Non-African Ame >60 (>=60 mL/min/1.73m^2); Globulin 4.2 g/dL; Glucose 229 mg/dL (74-106); Potassium 4.2 mmol/L (3.5-5.1); Sodium 137 mmol/L (136-145); Total Protein 6.9 g/dL (6.4-8.2)
[2024-05-16 07:34] LABS: Glucometer 261 mg/dL (74-106)
[2024-05-16] MEDS: INSULIN ASPART 300 UNIT/3 ML PEN SUBQ ×3 (08:19→21:38)
--- NOTE | 2024-05-16 09:43 | P.PN_ITS ---
Progress Note: Subjective Subjective Interval history: No new complaints this morning. When I saw patient up on the medical surgical floor, he was in the chair resting comfortably Exam Constitutional Vital Signs, click to edit/add: Last Vital Signs Temp 97.4 F L 05/16/24 06:00 Pulse 80 05/16/24 06:00 Resp 18 05/16/24 06:00 BP 130/71 05/16/24 06:00 Pulse Ox 96 05/16/24 06:00 O2 Del Method Room Air 05/16/24 06:00 Documenting provider has reviewed patient's vital signs: yes Common normals: no apparent distress Chest Common normals: inspection of chest normal Respiratory Common normals: normal respiratory effort Cardio Common normals: regular rate and regular rhythm GI Common normals: Normal to inspection, nondistended, normoactive bowel sounds present Extremity Common normals: abnormal to inspection (Dressing in place left arm) Progress Note: Objective Labs Labs: Short CBC 05/16/24 Range/Units 05:53 WBC 8.2 (4.0-11.0) 10^3/uL Hgb 13.7 L (14.0-18.0) g/dL Hct 42.3 (42.0-54.0) % Plt Count 314 (150-450) 10^3/uL BMP 05/16/24 05:53 Sodium 137 Potassium 4.2 Chloride 101 Carbon Dioxide 23.5 BUN 19.0 H Creatinine 1.16 Glucose 229 H Calcium 8.9 Liver Function 05/16/24 Range/Units 05:53 Total Bilirubin 0.6 (0.2-1.0) mg/dL AST 12 L (15-37) U/L ALT 17 (16-63) U/L Alkaline Phosphatase 94 (46-116) U/L Albumin 2.7 L (3.4-5.0) g/dL Progress Note: A&P Assessment and Plan (1) Cellulitis: Qualifiers: Laterality: left Site of cellulitis: extremity Site of cellulitis of extremity: upper extremity Qualified Code(s): L03.114 - Cellulitis of left upper limb (2) Diabetes: Qualifiers: Diabetes mellitus complication status: without complication 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: without long-term use Diabetes mellitus type: type 2 Qualified Code(s): E11.9 - Type 2 diabetes mellitus without complications (3) HTN (hypertension): Qualifiers: Hypertension type: primary hypertension Qualified Code(s): I10 - Essential (primary) hypertension (4) HLD (hyperlipidemia): Qualifiers: Hyperlipidemia type: unspecified Qualified Code(s): E78.5 - Hyperlipidemia, unspecified (5) Sleep apnea: (6) GERD without esophagitis: (7) Hyponatremia: (8) Depression: (9) Essential tremor: (10) Iron deficiency anemia: (11) Secondary immune deficiency disorder: Plan Admission findings: Hyponatremia, hyperglycemia, left shift and white blood cell count consistent with bacterial process secondary to cellulitis of left upper extremity with foreign body in place. Cellulitis: Extensive cellulitis of LUE due to poorly controlled diabetes mellitus creating immune deficiency - surgical intervention today. Cultures pending. Maintain current Zosyn and vancomycin. Again white blood cell count is normal but that has significant left shift consistent with bacterial process and complicated by decreased immune function based on glycohemoglobin of over 9 and consistently elevated hyperglycemia with sugars over 200. Diabetes: Still poorly controlled, increase sliding scale, he has been off his Januvia which may be beneficial at discharge HTN (hypertension): Blood pressure currently stable-continue with current medications HLD (hyperlipidemia): Continue with home medications Iron deficiency anemia-improved today Hyponatremia-improved today Depression-continue with home medications GERD-continue with home medications Essential tremor-continue with home medications Admission status: Patient with failed outpatient treatment of acute cellulitis, secondary to foreign body, compromised by poorly controlled diabetes mellitus resulting in immune compromised as a secondary status. Medically necessary treatment will span 2 midnights. Inpatient status. ?
[2024-05-16] MEDS: LACTATED RINGER'S SOLUTION 1,000 ML 50 ML IV (10:57)
--- NOTE | 2024-05-16 11:15 | P.ORPN_ITS ---
Progress Note: A&P Assessment and Plan (1) Cellulitis: Assessment and Plan: Discussed with the patient the deep infection with purulent drainage needs to be drained and washed out. I discussed the patient and his the risk for this getting worse even after surgery. We will plan to leave the wound open and have discussed the need for dressing changes. I discussed additional risks of this type of infection including loss of limb and loss of life. He understands additional risks and has elected to proceed. 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 Wound continues to drain. Exam Narrative Exam Narrative: Cellulitis improving today. Wound over the volar forearm mid aspect continues to have purulent drainage. Constitutional Vital Signs, click to edit/add: Last Vital Signs Temp 97.4 F L 05/16/24 06:00 Pulse 80 05/16/24 06:00 Resp 18 05/16/24 06:00 BP 130/71 05/16/24 06:00 Pulse Ox 96 05/16/24 06:00 O2 Del Method Room Air 05/16/24 06:00
--- NOTE | 2024-05-16 13:05 | P.ORPRC_ITS ---
Procedure Note Date of procedure: 05/16/24 Pre-op diagnosis: Left forearm infection Post-op diagnosis: other (Left forearm infection with necrotic tendon and muscle, abscess) Procedure: Operative procedure: Incision and debridement left forearm infection including e xcision of necrotic muscle and tendon, wound VAC placement (wound size 28 cm in length by 5 cm in width by 2 cm in depth) Operation: After informed consent was obtained the patient was brought to the operating room where general anesthetic was administered. The wound over the volar aspect of his mid forearm was draining pus. Initially a 10 cm incision was made overlying the wound that was overlying the flexor carpi ulnaris muscle and tendon. Gross purulence was expressed. Additionally the flexor carpi ulnaris muscle and tendon were necrotic and damaged. The arm was elevated and the tourniquet was inflated to 250 mmHg. Wound was extended proximally and distally for the entire extent of the forearm. This measured 28 cm in length. This was required to get to prior flexor carpi ulnaris muscle and tendon which were infected. Necrotic muscle was removed with scissors. The tendon was removed with scissors. There was some remaining muscle that was questionable for viability and this was left in place given the decision was that this was going to need repeat I&D in 2 days. The adjacent muscle and fascia did not appear to be infected. No clear involvement of the wrist joint. A large curette was used to debride subcutaneous tissue tendon and fascia along with a 15 blade and tenotomy's. Pulsavac was used and then the tourniquet was deflated. Wound VAC was placed. Patient was awakened and brought to the recovery room in stable condition. There were no intraoperative or immediate postoperative complications. Anesthesia: General-LMA Surgeon: Darrell Oglesby Estimated blood loss (mL): 20 Pathology: other (Culture swabs for aerobic, anaerobic and fungal) Condition: stable Disposition: PACU
[2024-05-16 13:14] LABS: Glucometer 186 mg/dL (74-106)
[2024-05-16] MEDS: HYDROMORPHONE HCL 0.5 MG/0.5 ML SYRINGE IV ×3 (13:16→13:40)
[2024-05-16] MEDS: OXYCODONE HCL/ACETAMINOPHEN 5MG/325MG 2 TAB PO ×2 (13:44→22:38)
[2024-05-16] MEDS: CITALOPRAM HYDROBROMIDE 20 MG TABLET 40 MG PO (14:36)
[2024-05-16] MEDS: HYDROCHLOROTHIAZIDE 25 MG TABLET PO (14:37)
[2024-05-16 15:30] LABS: Glucometer 282 mg/dL (74-106)
[2024-05-16] MEDS: 0.9 % SODIUM CHLORIDE 250 ML 10 ML IV (16:57)
[2024-05-16] MEDS: ATORVASTATIN CALCIUM 40 MG TABLET PO (21:25)
[2024-05-16] MEDS: PRIMIDONE 50 MG TABLET 100 MG PO (21:25)
[2024-05-16 21:38] LABS: Glucometer 514 mg/dL (74-106)
[2024-05-16 22:37] LABS: Glucometer 491 mg/dL (74-106)
[2024-05-17] VITALS (7 sets, daily range): BP systolic 120–142; BP diastolic 61–85; PULSE 57–64; TEMP 36.6–36.8; O2SAT 92–98
[2024-05-17] MEDS: PIPERACILLIN SODIUM/TAZOBACTAM 3.375 GM in 0.9 % SODIUM CHLORIDE 50 ML IV ×3 (00:24→17:11)
[2024-05-17 00:30] LABS: Glucometer 309 mg/dL (74-106)
[2024-05-17] MEDS: OMEPRAZOLE 40 MG CAPSULE.DR PO (05:44)
[2024-05-17] MEDS: VANCOMYCIN HCL 1,500 MG in 0.9 % SODIUM CHLORIDE 500 ML 250 MG IV ×2 (05:44→17:12)
[2024-05-17] MEDS: OXYCODONE HCL/ACETAMINOPHEN 5MG/325MG 2 TAB PO ×2 (05:46→18:32)
[2024-05-17 07:17] LABS: Basophils Percent Auto 0.3 % (0.2-2.0); Eosinophils Absolute Auto 0.3 10^3/uL (0.0-0.7); Eosinophils Percent Auto 2.3 % (0.9-7.0); Hematocrit 35.2 % (42.0-54.0); Hemoglobin 11.3 g/dL (14.0-18.0); Immature Granulocytes Abs Auto 0.08 10^3/uL (0.00-0.03); Immature Granulocytes Pct Auto 0.7 % (0.0-0.5); Lymphocytes Absolute Auto 1.6 10^3/uL (1.2-3.8); Lymphocytes Percent Auto 13.8 % (20.5-60.0); Mean Corpuscular HGB Conc 32.1 g/dL (29.9-35.2); Mean Corpuscular Hemoglobin 29.4 pg (25.9-34.0); Mean Corpuscular Volume 91.7 fL (80.0-94.0); Monocytes Absolute Auto 0.9 10^3/uL (0.3-0.8); Monocytes Percent Auto 8.1 % (1.7-12.0); Neutrophils Absolute Auto 8.6 10^3/uL (1.4-6.5); Neutrophils Percent Auto 74.8 % (43.0-75.0); Platelet Count 247 10^3/uL (150-450); Red Blood Count 3.84 10^6/uL (4.70-6.10); Red Cell Distribution Width 12.6 % (11.0-15.0); White Blood Count 11.5 10^3/uL (4.0-11.0)
[2024-05-17 07:36] LABS: Alanine Aminotransferase 21 U/L (16-63); Albumin Globulin Ratio 0.7; Albumin Level 2.3 g/dL (3.4-5.0); Alkaline Phosphatase 79 U/L (46-116); Anion Gap 13.9; Aspartate Amino Transferase 19 U/L (15-37); BUN Creatinine Ratio 19.6; Bilirubin Total 0.5 mg/dL (0.2-1.0); Calcium 8.1 mg/dL (8.5-10.1); Carbon Dioxide 23.8 mmol/L (21.0-32.0); Chloride 102 mmol/L (98-107); Estimated GFR (African America >60 (>=60 mL/min/1.73m^2); Estimated GFR (Non-African Ame >60 (>=60 mL/min/1.73m^2); Globulin 3.5 g/dL; Glucose 206 mg/dL (74-106); Potassium 3.7 mmol/L (3.5-5.1); Sodium 136 mmol/L (136-145); Total Protein 5.8 g/dL (6.4-8.2)
[2024-05-17 08:23] LABS: Glucometer 199 mg/dL (74-106)
[2024-05-17] MEDS: INSULIN ASPART 300 UNIT/3 ML PEN SUBQ ×4 (08:32→21:06)
[2024-05-17] MEDS: METFORMIN HCL 500 MG TABLET 1000 MG PO ×2 (08:33→17:12)
[2024-05-17] MEDS: GLIPIZIDE 10 MG TABLET 20 MG PO ×2 (08:33→21:06)
[2024-05-17] MEDS: HYDROCHLOROTHIAZIDE 25 MG TABLET PO (08:33)
[2024-05-17] MEDS: CANAGLIFLOZIN 100 MG TABLET PO (08:33)
[2024-05-17] MEDS: CITALOPRAM HYDROBROMIDE 20 MG TABLET 40 MG PO (08:33)
[2024-05-17] MEDS: PIOGLITAZONE 15 MG TABLET 45 MG PO (08:33)
[2024-05-17] MEDS: WOUND VAC 125 EACH TP (08:34)
--- NOTE | 2024-05-17 09:40 | P.PN_ITS ---
Progress Note: Subjective Subjective Interval history: No complaints this morning, pain fairly well-controlled Exam Constitutional Vital Signs, click to edit/add: Last Vital Signs Temp 97.8 F 05/17/24 08:46 Pulse 57 L 05/17/24 08:46 Resp 18 05/17/24 08:46 BP 120/66 05/17/24 08:46 Pulse Ox 96 05/17/24 08:46 O2 Del Method Room Air 05/17/24 08:46 Documenting provider has reviewed patient's vital signs: yes Common normals: no apparent distress Chest Common normals: inspection of chest normal Respiratory Common normals: normal respiratory effort Cardio Common normals: regular rate and regular rhythm GI Common normals: Normal to inspection, nondistended, normoactive bowel sounds present Extremity Common normals: abnormal to inspection (Dressing in place left arm) Progress Note: Objective Labs Labs: Short CBC 05/17/24 Range/Units 07:13 WBC 11.5 H (4.0-11.0) 10^3/uL Hgb 11.3 L (14.0-18.0) g/dL Hct 35.2 L (42.0-54.0) % Plt Count 247 (150-450) 10^3/uL BMP 05/17/24 07:13 Sodium 136 Potassium 3.7 Chloride 102 Carbon Dioxide 23.8 BUN 22.0 H Creatinine 1.12 Glucose 206 H Calcium 8.1 L Liver Function 05/17/24 Range/Units 07:13 Total Bilirubin 0.5 (0.2-1.0) mg/dL AST 19 (15-37) U/L ALT 21 (16-63) U/L Alkaline Phosphatase 79 (46-116) U/L Albumin 2.3 L (3.4-5.0) g/dL Progress Note: A&P Assessment and Plan (1) Cellulitis: Qualifiers: Laterality: left Site of cellulitis: extremity Site of cellulitis of extremity: upper extremity Qualified Code(s): L03.114 - Cellulitis of left upper limb (2) Diabetes: Qualifiers: Diabetes mellitus complication status: without complication Diabetes mellitus termite helper insulin use: without termite helper use Diabetes mellitus type: type 2 Qualified Code(s): E11.9 - Type 2 diabetes mellitus without complications (3) HTN (hypertension): Qualifiers: Hypertension type: primary hypertension Qualified Code(s): I10 - Essential (primary) hypertension (4) HLD (hyperlipidemia): Qualifiers: Hyperlipidemia type: unspecified Qualified Code(s): E78.5 - Hyper lipidemia, unspecified (5) Sleep apnea: (6) GERD without esophagitis: (7) Hyponatremia: (8) Depression: (9) Essential tremor: (10) Iron deficiency anemia: (11) Secondary immune deficiency disorder: Plan Admission findings: Hyponatremia, hyperglycemia, left shift and white blood cell count consistent with bacterial process secondary to cellulitis of left upper extremity with foreign body in place. Cellulitis: Extensive cellulitis of LUE due to poorly controlled diabetes mellitus creating immune deficiency - surgical intervention on 05/16/2024, re peat surgical intervention on 05/18/2024, findings significant for muscle and tendon involvement at the time of surgery, culture pending, leukocytosis worse today, still with left shift consistent with bacterial process, possibly related to surgical intervention yesterday, Diabetes: Still poorly controlled, continue with insulin sliding scale and restart home medications HTN (hypertension): Blood pressure currently stable-continue with current medications HLD (hyperlipidemia): Continue with home medications Iron deficiency anemia-improved today Hyponatremia-improved to normal today Depression-continue with home medications GERD-continue with home medications Essential tremor-continue with home medications Admission status: Patient with failed outpatient treatment of acute cellulitis, secondary to foreign body, compromised by poorly controlled diabetes mellitus resulting in immune compromised as a secondary status. Medically necessary treatment will span 2 midnights. Inpatient status. ?
--- NOTE | 2024-05-17 11:03 | PM.ORPN ---
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 Patient is POD #1 Incision and debridement left forearm infection including excision of necrotic muscle and tendon, wound VAC placement - XR and CT w/o contrast reviewed and resulted as Soft tissue injury and cellulitis with a 2 mm radiopaque foreign body volar midline mid to distal forearm - Cont Vanc and Zosyn - WBC 11.3, afebrile, vitals stable - Will need repeat I&D tomorrow, NPO at midnight, hold Lovenox - I discussed with patient that he needs to work on controlling his Diabetes with his PCP. He notes that he didn't want to go on Insulin due to cost. I told him this would be ideal if indicated as his last Hbg A1C was 9.9 in January and he will need this controlled for better healing as he has a large wound now. Qualifiers: Laterality: left Site of cellulitis: extremity Site of cellulitis of extremity: upper extremity Qualified Code(s): L03.114 - Cellulitis of left upper limb (2) Diabetes: Qualifiers: Diabetes mellitus type: type 2 Diabetes mellitus long-term insulin use: without jail guard use Diabetes mellitus complication status: without complication Qualified Code(s): E11.9 - Type 2 diabetes mellitus without complications (3) HTN (hypertension): Qualifiers: Hypertension type: primary hypertension Qualified Code(s): I10 - Essential (primary) hypertension (4) HLD (hyperlipidemia): Qualifiers: Hyperlipidemia type: unspecified Qualified Code(s): E78.5 - Hyperlipidemia, unspecified (5) Sleep apnea: (6) GERD without esophagitis: (7) Hyponatremia: (8) Depression: (9) Essential tremor: (10) Iron deficiency anemia: (11) Secondary immune deficiency disorder: Subjective Subjective Interval history: Patient is POD #1 Incision and debridement left forearm infection including excision of necrotic muscle and tendon, wound VAC placement. Patient is doing well, pain is controlled. Pt denies numbness or loss of motor to his hand. He does state that his left hand has been weaker prior to this accident as he has neck issues that he needs surgery for. Exam Narrative Exam Narrative: Patient sitting up in the bed watching TV and on the phone on my arrival. Patient is age-appropriate, alert and oriented x 3. Left forearm with wound vac in place in incision medially from just distal to elbow to wrist. Surrounding erythema still present but improved. Sensation intact to light touch distally. Patient able to make a full fist. 2+ radial pulse palpated. Less than 2-second capillary refill to all fingers and thumb. Constitutional Vital Signs, click to edit/add: Last Vital Signs Temp 97.8 F 05/17/24 08:46 Pulse 57 L 05/17/24 08:46 Resp 18 05/17/24 08:46 BP 120/66 05/17/24 08:46 Pulse Ox 96 05/17/24 08:46 O2 Del Method Room Air 05/17/24 08:46
[2024-05-17 11:21] LABS: Glucometer 266 mg/dL (74-106)
[2024-05-17 16:20] LABS: Glucometer 211 mg/dL (74-106)
[2024-05-17] MEDS: 0.9 % SODIUM CHLORIDE 250 ML 10 ML IV (17:13)
[2024-05-17 17:28] LABS: Vancomycin Trough 16.6 ug/mL (5.0-20.0)
[2024-05-17 20:10] LABS: Glucometer 246 mg/dL (74-106)
[2024-05-17] MEDS: ATORVASTATIN CALCIUM 40 MG TABLET PO (21:04)
[2024-05-17] MEDS: PRIMIDONE 50 MG TABLET 100 MG PO (21:04)
[2024-05-17] MEDS: TEMAZEPAM 15 MG CAPSULE PO (21:06)
[2024-05-18] VITALS (18 sets, daily range): BP systolic 109–156; BP diastolic 45–85; PULSE 59–72; TEMP 36.2–36.8; O2SAT 96–100
[2024-05-18] MEDS: PIPERACILLIN SODIUM/TAZOBACTAM 3.375 GM in 0.9 % SODIUM CHLORIDE 50 ML IV ×3 (02:07→17:01)
[2024-05-18] MEDS: OXYCODONE HCL/ACETAMINOPHEN 5MG/325MG 2 TAB PO ×2 (04:45→14:03)
[2024-05-18] MEDS: OMEPRAZOLE 40 MG CAPSULE.DR PO (05:40)
[2024-05-18] MEDS: VANCOMYCIN HCL 1,500 MG in 0.9 % SODIUM CHLORIDE 500 ML 250 MG IV ×2 (05:41→17:02)
[2024-05-18 07:31] LABS: Basophils Percent Auto 0.5 % (0.2-2.0); Eosinophils Absolute Auto 0.4 10^3/uL (0.0-0.7); Eosinophils Percent Auto 5.4 % (0.9-7.0); Hematocrit 39.2 % (42.0-54.0); Hemoglobin 12.6 g/dL (14.0-18.0); Immature Granulocytes Abs Auto 0.07 10^3/uL (0.00-0.03); Immature Granulocytes Pct Auto 0.9 % (0.0-0.5); Lymphocytes Absolute Auto 1.6 10^3/uL (1.2-3.8); Lymphocytes Percent Auto 19.3 % (20.5-60.0); Mean Corpuscular HGB Conc 32.1 g/dL (29.9-35.2); Mean Corpuscular Hemoglobin 29.6 pg (25.9-34.0); Mean Platelet Volume 9.2 fL (9.5-13.5); Monocytes Absolute Auto 0.7 10^3/uL (0.3-0.8); Monocytes Percent Auto 8.1 % (1.7-12.0); Neutrophils Absolute Auto 5.3 10^3/uL (1.4-6.5); Neutrophils Percent Auto 65.8 % (43.0-75.0); Platelet Count 261 10^3/uL (150-450); Red Blood Count 4.26 10^6/uL (4.70-6.10); Red Cell Distribution Width 12.9 % (11.0-15.0); White Blood Count 8.1 10^3/uL (4.0-11.0)
[2024-05-18 07:47] LABS: Glucometer 185 mg/dL (74-106)
[2024-05-18 08:04] LABS: Alanine Aminotransferase 22 U/L (16-63); Albumin Globulin Ratio 0.7; Albumin Level 2.5 g/dL (3.4-5.0); Alkaline Phosphatase 80 U/L (46-116); Anion Gap 13.2; Aspartate Amino Transferase 18 U/L (15-37); BUN Creatinine Ratio 18.3; Bilirubin Total 0.5 mg/dL (0.2-1.0); Calcium 8.5 mg/dL (8.5-10.1); Carbon Dioxide 25.7 mmol/L (21.0-32.0); Chloride 104 mmol/L (98-107); Estimated GFR (African America >60 (>=60 mL/min/1.73m^2); Estimated GFR (Non-African Ame >60 (>=60 mL/min/1.73m^2); Globulin 3.7 g/dL; Glucose 153 mg/dL (74-106); Potassium 3.9 mmol/L (3.5-5.1); Sodium 139 mmol/L (136-145); Total Protein 6.2 g/dL (6.4-8.2)
[2024-05-18] MEDS: WOUND VAC 125 EACH TP (08:57)
--- NOTE | 2024-05-18 09:17 | P.PN_ITS ---
Progress Note: Subjective Subjective Interval history: Feeling about the same, ready for surgery today Exam Constitutional Vital Signs, click to edit/add: Last Vital Signs Temp 97.5 F L 05/18/24 04:50 Pulse 59 L 05/18/24 04:50 Resp 18 05/18/24 04:50 BP 141/81 05/18/24 04:50 Pulse Ox 97 05/18/24 04:50 O2 Del Method Room Air 05/18/24 04:50 Common normals: no apparent distress Chest Common normals: inspection of chest normal Respiratory Common normals: normal respiratory effort and no retractions Extremity Common normals: normal to inspection (Dressing in place) Progress Note: Objective Labs Labs: Short CBC 05/18/24 Range/Units 06:52 WBC 8.1 (4.0-11.0) 10^3/uL Hgb 12.6 L (14.0-18.0) g/dL Hct 39.2 L (42.0-54.0) % Plt Count 261 (150-450) 10^3/uL BMP 05/18/24 06:52 Sodium 139 Potassium 3.9 Chloride 104 Carbon Dioxide 25.7 BUN 17.0 Creatinine 0.93 Glucose 153 H Calcium 8.5 Liver Function 05/18/24 Range/Units 06:52 Total Bilirubin 0.5 (0.2-1.0) mg/dL AST 18 (15-37) U/L ALT 22 (16-63) U/L Alkaline Phosphatase 80 (46-116) U/L Albumin 2.5 L (3.4-5.0) g/dL Progress Note: A&P Assessment and Plan (1) Cellulitis: Qualifiers: Laterality: left Site of cellulitis: extremity Site of cellulitis of extremity: upper extremity Qualified Code(s): L03.114 - Cellulitis of left upper limb (2) Diabetes: Qualifiers: Diabetes mellitus complication status: without complication Diabetes mellitus superintendent terminal insulin use: without fci use Diabetes mellitus type: type 2 Qualified Code(s): E11.9 - Type 2 diabetes mellitus without complicatio ns (3) HTN (hypertension): Qualifiers: Hypertension type: primary hypertension Qualified Code(s): I10 - Essential (primary) hypertension (4) HLD (hyperlipidemia): Qualifiers: Hyperlipidemia type: unspecified Qualified Code(s): E78.5 - Hyperlipidemia, unspecified (5) Sleep apnea: (6) GERD without esophagitis: (7) Hyponatremia: (8) Depression: (9) Essential tremor: (10) Iron deficiency anemia: (11) Secondary immune deficiency disorder: Plan Admission findings: Hyponatremia, hyperglycemia, left shift and white blood cell count consistent with bacterial process secondary to cellulitis of left upper extremity with foreign body in place. Cellulitis: Extensive cellulitis of LUE due to poorly controlled diabetes mellitus creating immune deficiency - surgical intervention on 05/16/2024, repeat surgical intervention on 05/18/2024, findings significant for muscle and tendon involvement at the time of surgery, culture pending, leukocytosis worse today, still with left shift consistent with bacterial process, possibly related to surgical intervention yesterday,-final cultures are still pending from initial wound assessment Diabetes: Still poorly controlled, continue with insulin sliding scale and restart home medications, sugars still elevated but is n.p.o. today. Consider changing sliding scale tomorrow HTN (hypertension): Blood pressure currently stable-continue with current medications HLD (hyperlipidemia): Continue with home medications Iron deficiency anemia-Down somewhat from admission consistent with acute blood loss secondary to surgical intervention Hyponatremia-improved to normal today Depression-continue with home medications GERD-continue with home medications Essential tremor-continue with home medications Admission status: Patient with failed outpatient treatment of acute cellulitis, secondary to foreign body, compromised by poorly controlled diabetes mellitus resulting in immune compromised as a secondary status. Medically necessary treatment will span 2 midnights. Inpatient status. Surgery repeating today. Likely staying at least until tomorrow, final cultures hopefully back tomorrow for arranging outpatient therapy ?
--- NOTE | 2024-05-18 09:27 | CM.NOTE ---
Rounds made with Dr. Tadeo, pt will go back to OR today for additional procedure. Awaiting culture for P.O antibiotic at discharge. Dr. Tadeo will discuss discharge plan with ortho today.
[2024-05-18 11:08] LABS: Glucometer 155 mg/dL (74-106)
--- NOTE | 2024-05-18 13:51 | PM.ORPRC ---
Procedure Note Date of procedure: 05/18/24 Pre-op diagnosis: Left forearm infection Post-op diagnosis: same as pre-op Procedure: Operation: Irrigation and debridement of left forearm including muscle and tendon, negative pressure dressing change Operative procedure: After informed consent was obtained the patient brought to the operating room where general anesthetic was administered. A well-padded proximal arm tourniquet was placed on the left arm but ultimately not inflated for the procedure. The wound VAC was removed and the left arm was prepped and draped in the usual sterile fashion. Wound was inspected and there was obvious the additional necrotic muscle with muscle turning black and dusky in appearance. This muscle did not bleed and was sharply dissected with a 15 blade and rongeur. Muscle debridement was of the flexor carpi all naris to the level of the medial epicondyle. Additional tendon was debrided sharply with a 15 blade. Portion of flexor muscle that was visualized in the mid forearm had good color and when incised with a 15 blade would bleed. This was not removed as it appeared viable at this point. Additional debridement was performed with a curette. Irrisept and pulse lavage were used for irrigation. A Prevena negative pressure dressing was applied. Patient was awakened and brought to the recovery room in stable condition. There were no intraoperative or immediate postoperative complications. Anesthesia: General-LMA Surgeon: Darrell Oglesby Estimated blood loss (mL): 10 Pathology: none sent Condition: stable Disposition: PACU
--- NOTE | 2024-05-18 14:34 | SWNOTE1 ---
THADDEUS received a call from nursing and pt will need IV anbx and wound vac. THADDEUS called to PACU to see if Dr. Oglesby was still back there and he was. THADDEUS spoke with Dr. Oglesby and he will fill out wound vac form. Unsure of anbx at this point, need to wait for cultures. Dr. Oglesby will place wound vac order form on chart on med/surge. THADDEUS reviewed pt's insurance and THADDEUS only knows of [facility] that accepts this insurance. THADDEUS sent referral to [facility]. Referral included demographic sheet, H&P, and surgery notes.
--- NOTE | 2024-05-18 15:04 | SWNOTE1 ---
SW did call and verify that pt will need a big wound vac, as nursing did say he had a throw away one on. THADDEUS called and spoke to Dr. Oglesby again and he did voice that pt does need a wound vac for a few months and it will need changed 3x a week. THADDEUS spoke with pt and in room. They do prefer to come to hospital for IV anbx as they have several people in the home with her son and family there as well as cats and dogs. THADDEUS advised pt and that SW has to find out if we can do wound vac dressing changes at hospital as well. prefers just to bring pt here so he can get IV and dressing change and then pick him up. SW to speak with Bernie. THADDEUS spoke with Bernie and she will ask Nicole in [facility] and let THADDEUS know.
[2024-05-18 16:25] LABS: Glucometer 459 mg/dL (74-106)
[2024-05-18] MEDS: INSULIN ASPART 300 UNIT/3 ML PEN SUBQ ×2 (17:00→21:40)
[2024-05-18] MEDS: METFORMIN HCL 500 MG TABLET 1000 MG PO (17:00)
[2024-05-18] MEDS: 0.9 % SODIUM CHLORIDE 250 ML 10 ML IV (17:01)
[2024-05-18 19:31] LABS: Glucometer 253 mg/dL (74-106)
[2024-05-18] MEDS: GLIPIZIDE 10 MG TABLET 20 MG PO (21:40)
[2024-05-18] MEDS: ATORVASTATIN CALCIUM 40 MG TABLET PO (21:40)
[2024-05-18] MEDS: PRIMIDONE 50 MG TABLET 100 MG PO (21:40)
[2024-05-19 04:19] VITALS: BP 161/75; PULSE 64; TEMP 36.4; O2SAT 98
[2024-05-19] MEDS: VANCOMYCIN HCL 1,500 MG in 0.9 % SODIUM CHLORIDE 500 ML 250 MG IV (05:24)
[2024-05-19] MEDS: OMEPRAZOLE 40 MG CAPSULE.DR PO (05:34)
[2024-05-19 05:43] LABS: Basophils Percent Auto 0.5 % (0.2-2.0); Eosinophils Absolute Auto 0.5 10^3/uL (0.0-0.7); Eosinophils Percent Auto 5.4 % (0.9-7.0); Hematocrit 36.7 % (42.0-54.0); Hemoglobin 11.6 g/dL (14.0-18.0); Immature Granulocytes Abs Auto 0.09 10^3/uL (0.00-0.03); Lymphocytes Absolute Auto 1.4 10^3/uL (1.2-3.8); Lymphocytes Percent Auto 15.7 % (20.5-60.0); Mean Corpuscular HGB Conc 31.6 g/dL (29.9-35.2); Mean Corpuscular Hemoglobin 29.5 pg (25.9-34.0); Mean Corpuscular Volume 93.4 fL (80.0-94.0); Monocytes Absolute Auto 0.6 10^3/uL (0.3-0.8); Monocytes Percent Auto 7.2 % (1.7-12.0); Neutrophils Absolute Auto 6.1 10^3/uL (1.4-6.5); Neutrophils Percent Auto 70.2 % (43.0-75.0); Platelet Count 246 10^3/uL (150-450); Red Blood Count 3.93 10^6/uL (4.70-6.10); Red Cell Distribution Width 12.8 % (11.0-15.0); White Blood Count 8.7 10^3/uL (4.0-11.0)
--- NOTE | 2024-05-19 05:52 | P.DS_ITS ---
DS: Providers Provider Date of admission: 05/15/24 11:40 Primary care physician: Harris Alarcon MD Consults: 05/15/24 09:46 Consult to Orthopedics Routine Consulting Provider: Darrell Oglesby Reason for consultation: Left Forearm cellulitis DS: Diagnosis Discharge Diagnosis (1) Cellulitis: Qualifiers: Laterality: left Site of cellulitis: extremity Site of cellulitis of extremity: upper extremity Qualified Code(s): L03.114 - Cellulitis of left upper limb (2) Diabetes: Qualifiers: Diabetes mellitus complication status: without complication Diabetes mellitus intermediate project manager insulin use: without long-term use Diabetes mellitus type: type 2 Qualified Code(s): E11.9 - Type 2 diabetes mellitus without complications (3) HTN (hypertension): Qualifiers: Hypertension type: primary hypertension Qualified Code(s): I10 - Essential (primary) hypertension (4) HLD (hyperlipidemia): Qualifiers: Hyperlipidemia type: unspecified Qualified Code(s): E78.5 - Hyperlipidemia, unspecified (5) Sleep apnea: (6) GERD without esophagitis: (7) Hyponatremia: (8) Depression: (9) Essential tremor: (10) Iron deficiency anemia: (11) Secondary immune deficiency disorder: Plan Admission findings: Hyponatremia, hyperglycemia, left shift and white blood cell count consistent with bacterial process secondary to cellulitis of left upper extremity with foreign body in place. Cellulitis: Extensive cellulitis of LUE due to poorly controlled diabetes mellitus creating immune deficiency - surgical intervention on 05/16/2024, repeat surgical intervention on 05/18/2024, findings significant for muscle and tendon involvement at the time of surgery, culture pending, leukocytosis worse today, still with left shift consistent with bacterial process, possibly related to surgical intervention yesterday,-final cultures are still pending from initial wound assessment Diabetes: Still poorly controlled, continue with insulin sliding scale and restart home medications, sugars still elevated but is n.p.o. today. Consider changing sliding scale tomorrow HTN (hypertension): Blood pressure currently stable-continue with current medications HLD (hyperlipidemia): Continue with home medications L Iron deficiency anemia-Down somewhat from admission consistent with acute blood loss secondary to surgical intervention Hyponatremia-improved to normal today Depression-continue with home medications GERD-continue with home medications Essential tremor-continue with home medications Admission status: Patient with failed outpatient treatment of acute cellulitis, secondary to foreign body, compromised by poorly controlled diabetes mellitus resulting in immune compromised as a secondary status. Medically necessary treatment will span 2 midnights. Inpatient status. Surgery repeating today. Likely staying at least until tomorrow, final cultures hopefully back tomorrow for arranging outpatient therapy DS: Summary Hospital Course Hospital Course: Patient admitted with left forearm increasing pain. Found to have draining abscess, cultures obtained for group B strep. Patient was treated aggressively with IV antibiotics and had surgical debridement on 05/16 and 05/18/2024. The infection did involve muscle and tendon. Wound VAC is currently in place. Complications throughout the hospitalization was his hyperglycemia. He is currently back on his oral medications I suspect with the control of the infection and the oral medications the sugar should return to normal Discharge plan is to have wound VAC with wound VAC changed every 3 days, started with 2 weeks of IV antibiotics with Rocephin 2 g IV daily due to the severity of the depth of the infection and necrotic tissue found at the time of surgery. Currently patient is medically stable to be discharged to home in improving condition. Medications to this. Follow-up with his PCP within the next week. Status at Discharge Overall status at discharge: patient is not back to baseline Time Spent with Patient Time attestation: Total time spent providing and/or coordinating discharge services: Time spent: greater than 30 minutes Exam Constitutional Vital Signs, click to edit/add: Last Vital Signs Temp 97.6 F 05/19/24 04:19 Pulse 64 05/19/24 04:19 Resp 18 05/19/24 04:19 BP 161/75 H 05/19/24 04:19 Pulse Ox 98 05/19/24 04:19 O2 Del Method Room Air 05/19/24 04:19 Common normals: no apparent distress Chest Common normals: inspection of chest normal Respiratory Common normals: normal respiratory effort and no retractions Extremity Common normals: normal to inspection (Dressing in place) DS: Data Data Completed and Pending Labs on day of discharge: Labs from last 24 hours 05/18/24 05/18/24 05/18/24 19:29 16:23 11:07 WBC RBC Hgb Hct MCV MCH MCHC RDW Plt Count MPV Neut % (Auto) Lymph % (Auto) [place] % (Auto) Eos % (Auto) Baso % (Auto) Neut # (Auto) Lymph # (Auto) [place] # (Auto) Eos # (Auto) Baso # (Auto) Abs Immat Gran (auto) Imm/Tot Granulo (auto) Sodium Potassium Chloride Carbon Dioxide Anion Gap BUN Creatinine Est GFR ( Amer) Est GFR (Non-Af Amer) BUN/Creatinine Ratio Glucose Calcium Total Bilirubin AST ALT Alkaline Phosphatase Total Protein Albumin Globulin Albumin/Globulin Ratio POC Glucose 253 H 459 H 155 H 05/18/24 05/18/24 07:46 06:52 WBC 8.1 RBC 4.26 L Hgb 12.6 L Hct 39.2 L MCV 92.0 MCH 29.6 MCHC 32.1 RDW 12.9 Plt Count 261 MPV 9.2 L Neut % (Auto) 65.8 Lymph % (Auto) 19.3 L [place] % (Auto) 8.1 Eos % (Auto) 5.4 Baso % (Auto) 0.5 Neut # (Auto) 5.3 Lymph # (Auto) 1.6 [place] # (Auto) 0.7 Eos # (Auto) 0.4 Baso # (Auto) 0.0 Abs Immat Gran (auto) 0.07 H Imm/Tot Granulo (auto) 0.9 H Sodium 139 Potassium 3.9 Chloride 104 Carbon Dioxide 25.7 Anion Gap 13.2 BUN 17.0 Creatinine 0.93 Est GFR ( Amer) >60 Est GFR (Non-Af Amer) >60 BUN/Creatinine Ratio 18.3 Glucose 153 H Calcium 8.5 Total Bilirubin 0.5 AST 18 ALT 22 Alkaline Phosphatase 80 Total Protein 6.2 L Albumin 2.5 L Globulin 3.7 Albumin/Globulin Ratio 0.7 POC Glucose 185 H Preliminary micro results at discharge 05/16/24 11:38 Mycology Culture - Preliminary Abscess - Wound 05/16/24 11:38 Acid Fast Bacilli Culture - Preliminary Wound - Wound 05/16/24 11:53 Aerobic Culture - Preliminary Abscess - Wound 05/14/24 17:00 Aerobic Culture - Preliminary Arm Left Beta hemolytic Strep group B 05/14/24 17:12 Blood Culture Result 2 - Preliminary Blood - Right Hand NO GROWTH AT 36-48 HOURS. FINAL TO FOLLOW. 05/14/24 17:06 Blood Culture Result 1 - Preliminary Blood - Right Forearm NO GROWTH AT 36-48 HOURS. FINAL TO FOLLOW. Discharge Plan Discharge Disposition: Home, Self-Care Condition: Good Discharge Medications: New ceftriaxone 2 gram recon soln 2 g IM DAILY MDD 2 gram Qty: 14 0RF Continued atorvastatin 40 mg tablet 40 mg PO BEDTIME primidone 50 mg tablet 100 mg PO BEDTIME citalopram 40 mg tablet 40 mg PO DAILY glipizide 10 mg tablet 20 mg PO BID pioglitazone 45 mg tablet 45 mg PO DAILY (DME) True Metrix Glucose Test Strip Strip MISCELLANEOUS pantoprazole 40 mg tablet,delayed release (DR/EC) 40 mg PO DAILY metformin 1,000 mg tablet 1,000 mg PO BID hydrochlorothiazide 25 mg tablet 25 mg PO DAILY Jardiance 25 mg tablet 25 mg PO DAILY Print Language: Romansh Forms: Portal Instructions Follow Up Appointments: @ 11:30am with Dr. Alarcon [phone] Oglesby [phone]
[2024-05-19 06:00] LABS: Alanine Aminotransferase 24 U/L (16-63); Albumin Globulin Ratio 0.6; Albumin Level 2.4 g/dL (3.4-5.0); Alkaline Phosphatase 74 U/L (46-116); Anion Gap 11.4; Aspartate Amino Transferase 20 U/L (15-37); BUN Creatinine Ratio 15.5; Bilirubin Total 0.4 mg/dL (0.2-1.0); Calcium 8.7 mg/dL (8.5-10.1); Carbon Dioxide 26.7 mmol/L (21.0-32.0); Chloride 108 mmol/L (98-107); Estimated GFR (African America >60 (>=60 mL/min/1.73m^2); Estimated GFR (Non-African Ame >60 (>=60 mL/min/1.73m^2); Globulin 3.7 g/dL; Glucose 152 mg/dL (74-106); Potassium 4.1 mmol/L (3.5-5.1); Sodium 142 mmol/L (136-145); Total Protein 6.1 g/dL (6.4-8.2)
[2024-05-19 07:33] LABS: Glucometer 169 mg/dL (74-106)
[2024-05-19] MEDS: INSULIN ASPART 300 UNIT/3 ML PEN SUBQ ×2 (08:16→11:33)
[2024-05-19 08:21] VITALS: BP 164/62; PULSE 72; TEMP 36.4; O2SAT 97
--- NOTE | 2024-05-19 08:55 | CM.NOTE ---
Rounds made with Dr. Tadeo, pt will discharge to home on custodial IV antibiotics and wound vac changes per [facility]. IV Rocephin daily and wound vac changes 3x week. Pt will f/u with ortho and PCP.
--- NOTE | 2024-05-19 09:10 | SWNOTE1 ---
SW spoke to case management and pt is able to come to the hospital for wound vac dressing changes as well. Pt will be an [facility] pt for IV anbx and wound vac dressing changes. THADDEUS to call [employer] to see if they received all paper work and the estimated time and day of delivery.
[2024-05-19] MEDS: CITALOPRAM HYDROBROMIDE 20 MG TABLET 40 MG PO (09:17)
[2024-05-19] MEDS: PIPERACILLIN SODIUM/TAZOBACTAM 3.375 GM in 0.9 % SODIUM CHLORIDE 50 ML IV ×2 (09:17)
[2024-05-19] MEDS: METFORMIN HCL 500 MG TABLET 1000 MG PO (09:17)
[2024-05-19] MEDS: GLIPIZIDE 10 MG TABLET 20 MG PO (09:17)
[2024-05-19] MEDS: PIOGLITAZONE 15 MG TABLET 45 MG PO (09:17)
[2024-05-19] MEDS: CANAGLIFLOZIN 100 MG TABLET PO (09:17)
[2024-05-19] MEDS: HYDROCHLOROTHIAZIDE 25 MG TABLET PO (09:17)
[2024-05-19] MEDS: WOUND VAC 125 EACH TP (09:18)
--- NOTE | 2024-05-19 10:27 | CM.NOTE ---
[facility] form completed for IV antibiotic for 14 days and wound vac change Sat, Sat, Saturday. Copy taken to [facility], faxed to Centralized scheduling and copy taken to Viktoria in pharmacy.
--- NOTE | 2024-05-19 10:40 | SWNOTE1 ---
THADDEUS called and spoke with [employer]. The person working on the wound vac stated they need an updated script on the first page by the patient's last name as they could not read it. SW updated the name and sent it back over.
--- NOTE | 2024-05-19 10:42 | SWNOTE1 ---
SW only updated the name of the script as it was not legible.
[2024-05-19 10:51] VITALS: O2SAT 97
[2024-05-19 11:06] LABS: Glucometer 273 mg/dL (74-106)
--- NOTE | 2024-05-19 13:51 | SWNOTE1 ---
THADDEUS called [employer] again and they voiced they did not receive updated script. THADDEUS re-faxed. THADDEUS spoke to pt and and let them know SW will call them at home with estimated time and date of delivery. THADDEUS provided with card that has SW extension on. If wound vac will not be delivered tomorrow, then THADDEUS will call Jessie to coordinate time to come to [facility] to have wound vac placed. Pt did get call from centralized scheduling and he is scheduled for 9:30am everyday for IV anbx and MWF for wound vac care.
--- NOTE | 2024-05-19 16:23 | SWNOTE1 ---
SW called [employer] to check on status. They voiced the order was processed and that it was processed before 5:00 pm so it will be out with [employer] for overnight delivery. [facility] voiced that someone will call the patient. THADDEUS called the patient, no answer. THADDEUS called the and she stated the patient can't find his phone. THADDEUS advised that the wound vac shoudl be out for over night delivery. THADDEUS advised that SW will check in tomorrow morning and see if it was delivered. THADDEUS messaged case management and left message for Jessie in wound center.
--- NOTE | 2024-05-20 10:07 | SWNOTE1 ---
THADDEUS had message from pt's that wound vac will be delivered between 8a-8p. THADDEUS called and spoke with Will in [facility] and let him know that pt will not have wound vac today and unsure of delivery time tomorrow so we will have it placed Saturday. THADDEUS also called Jessie and let her know. Jessie has [employer] training, but would likely be able to step out at 9:30 and assist for a short time. THADDEUS then called pt's , Dipika, and advised her of the wound vac placement on Saturday. She voiced understanding. She stated the other wound vac was beeping, SW advised to have them look at it today down in the [facility] while he is getting IV anbx.
--- NOTE | 2024-05-20 10:39 | SWNOTE1 ---
SW spoke to Christian in [facility] and they spoke to [employer] in store room and got another canister for wound vac. THADDEUS spoke with Bernie director of med/surge to update her and let her know that it is possible it could happen tomorrow as well, she voiced understanding since other wound vac will not be placed until Saturday.
--- NOTE | 2024-05-20 14:35 | CM.DCFOLLOWU ---
Person spoke with:patient How are you feeling?well How is your pain?none, feeling much better Did you understand your discharge instructions? yes Do you have any questions about your discharge instructions?no Were you given any prescriptions at discharge? just IV anbx that he is getting here at [facility] Were you able to get your prescriptions filled? IV anbx, he is coming as an [facility] patient Do you understand how to take your medications as ordered?yes Do you have any questions about your follow up appointment and do you plan to keep your follow up appointment?no questions, reviewed follow ups Is there anything else that you would like to discuss?no Questions/Comments/Concerns/Other:none
== END 2024-05-19 14:06 | disposition home or self-care (01) | DRG 982 ==
LOC: ER 18:45 → MS 05-15 09:33
PROVIDERS: Internal Medicine; Nurse Practitioner Family; Orthopaedic Surgery; Registered Nurse; Admitting Provider Family Medicine; Emergency Provider Emergency Medicine; PCP Family Medicine; Visit Provider Family Medicine
PROC: 0KBB0ZZ Excision of Left Lower Arm and Wrist Muscle, Open Approach (ICD-10-PCS; principal; 2024-05-16 11:30)
DX: E11.628 Type 2 diabetes mellitus with other skin complications (principal); D62 Acute posthemorrhagic anemia; D84.89 Other immunodeficiencies; L03.114 Cellulitis of left upper limb; E87.1 Hypo-osmolality and hyponatremia; S51.822D Laceration with foreign body of left forearm, subsequent encounter; I10 Essential (primary) hypertension; E78.5 Hyperlipidemia, unspecified; Z79.899 Other long term (current) drug therapy; E11.65 Type 2 diabetes mellitus with hyperglycemia; Z79.84 Long term (current) use of oral hypoglycemic drugs; Z87.891 Personal history of nicotine dependence; G47.30 Sleep apnea, unspecified; K21.9 Gastro-esophageal reflux disease without esophagitis; F32.A Depression, unspecified; D50.9 Iron deficiency anemia, unspecified; W27.0XXD Contact with workbench tool, subsequent encounter; G25.0 Essential tremor; B95.1 Streptococcus, group B, as the cause of diseases classified elsewhere; B95.61 Methicillin susceptible Staphylococcus aureus infection as the cause of diseases classified elsewhere
CPT/HCPCS: 36415; 36569; 73090; 73200; 80053; 80202; 82948; 83605; 83735; 85025; 87040; 87070; 87075; 87102; 87116; 87150; 87176; 87186; 87205; 87206; 90471; 90715; 94761; 96365; 96367; 97605; 99285; 99999; C1887; G0378; J0690; J1100; J1171; J1200; J1650; J1885; J2250; J2405; J2543; J2704; J3010; J3370

== ENCOUNTER 2024-05-28 17:59 | Emergency (ER) | payer OTHER, SELFPAY ==
[2024-05-28 18:08] VITALS: BP 119/72; PULSE 95; TEMP 36.8; O2SAT 100; BMI 32.9
--- OUTSIDE RECORDS SUMMARY | 2024-05-28 18:12 | XMS_ITS | CCD ---
Author Organization [facility] Care Team Providers Care Parts Finisher Name Role Phone MEGAN MATIAS Unavailable Unavailable NADERERHARRIS Unavailable UnavailMEGAN David Unavailable Unavailable MEGAN MATIAS Unavailable Unavailable NADERER, HARRIS METZ Unavailable Unavailabl e NADERER, DR HARRIS Esteves Primary Care Unavailable BRIGIDO, DR LLOYD Attending Unavailable BRIGIDO, DR LLOYD Admitting Unavailable NADERER, DR HARRIS Esteves Consulting Unavailable NADERER, DR HARRIS Esteves Primary Care Unavailable NADERER, DR HARRIS Esteves Admitting Unavailable NADERER, DR HARRIS Esteves Attending Unavailable NADERER, DR HARRIS Esteves Attending Unavailable NADERER, DR HARRIS Esteves Consulting Unavailable NADERER, DR HARRIS Esteves Primary Care Unavailable NADERER, DR HARRIS Esteves Admitting Unavailable EBENIvanna Attending Unavailable EBEN, LAWRENCE Morgan Admitting Unavailable Gabe DUPONT Attending Unavailable EBEN, Ivanna Morgan Attending Unavailable Naderer Harris GARZA Primary Care Provider MERRITT, HARRIS Attending Unavailable NADERER, HARRIS Attending Unavailable NADERER, HARRIS Attending Unavailable NADERER, HARRIS Attending Unavailable Allergies Allergy Classification Reported Allergen(s) Allergy Type Date of Onset Reaction(s) Facility (1 source) Angiotensin Converting Enzyme (Latrell) Inhibitors Drug allergy (disorder) 6 The Repository (8 sources) Angiotensin-conv erting enzyme inhibitor agent Propensity to adverse reactions 4 [facility] Medications Current Medications Medication Drug Class(es) Dates Sig (Normalized) Sig (Original) amLODIPine 5 mg oral tablet (8 sources) Dihydropyridine Calcium Channel Susanna Start: 10-30-19 24 End: 10-30-19 25 take 1 tablet by mouth once daily amLODIPine (Norvasc) 5 MG tablet Indications: Essential hypertension, benign (CMS/HCC) Take 1 tablet (5 mg) by mouth Daily 30 tablet 11 10/30/2023 10/29/2024 Active atorvastatin 40 mg oral tablet (8 sources) HMG-CoA Reductase Inhibitor Start: 03-31-20 24 take 1 tablet by mouth at bedtime atorvastatin (Lipitor) 40 MG tablet Indications: Dyslipidemia ([facility]) Take 1 tablet (40 mg) by mouth at bedtime 30 tablet 5 03/31/2024 Active Blood Glucose Monitoring Suppl (Blood Glucose Monitor System) w/Device kit (8 sources) Start: 03-31-20 Blood Glucose Monitoring Suppl (Blood Glucose Monitor System) w/Device kit Indications: Type 2 diabetes mellitus with hyperglycemia, without long-term current use of insulin ([facility]) 1 each Daily 1 kit 03/31/2024 Active cholecalciferol 0.025 mg oral tablet (8 sources) Vitamin D Start: 12-31-19 End: 12-31-19 take 2 tablets by mouth once daily cholecalciferol (Vitamin D3) 25 MCG (1000 UT) tablet Indications: Vitamin D deficiency Take 2 tablets (50 mcg) by mouth Daily 60 tablet 5 12/31/2023 12/30/2024 Active citalopram 40 mg oral tablet (8 sources) Serotonin Reuptake Inhibitor Start: 12-16-19 take 1 tablet by mouth once daily citalopram (CeleXA) 40 MG tablet Indications: Essential hypertension, benign ([facility]) Take 1 tablet (40 mg) by mouth Daily 30 tablet 5 12/16/2023 Active empagliflozin 25 mg oral tablet (8 sources) Sodium-Glucose Cotransporter 2 Inhibitor Start: 04-28-20 take 1 tablet by mouth once daily empagliflozin (Jardiance) 25 MG Indications: Type 2 diabetes mellitus with hyperglycemia, without long-term current use of insulin ([facility]) Take 1 tablet (25 mg) by mouth Daily 90 tablet 3 04/28/2024 Active glipiZIDE 10 mg oral tablet (8 sources) Sulfonylurea Start: 04-28-20 take 1 tablet by mouth in the morning glipiZIDE (Glucotrol) 10 MG tablet Indications: Type 2 diabetes mellitus with hyperglycemia, without long-term current use of insulin ([facility]) Take 1 tablet (10 mg) by mouth in the morning and 1 tablet (10 mg) in the evening. Take before meals. 120 tablet 3 04/28/2024 Active hydroCHLOROthiazide 25 mg oral tablet (8 sources) Thiazide Diuretic Start: 04-28-20 End: 04-28-20 take 1 tablet by mouth once daily hydroCHLOROthiazide (HYDRODiuril) 25 MG tablet Indications: Essential hypertension, benign (CMS/HCC) Take 1 tablet (25 mg) by mouth Daily 30 tablet 3 04/28/2024 04/28/2025 Active lamoTRIgine 150 mg oral tablet (8 sources) Mood Stabilizer, Anti-epileptic Agent Start: 10-16-19 take 1 tablet by mouth once daily lamoTRIgine (LaMICtal) 150 MG tablet Indications: Moderate recurrent major depression (CMS/HCC) Take 1 tablet (150 mg) by mouth Daily 30 tablet 5 10/16/2023 Active losartan potassium 100 mg oral tablet (8 sources) Angiotensin 2 Receptor Susanna Start: 12-11-19 End: 12-11-19 take 1 tablet by mouth once daily losartan (Cozaar) 100 MG tablet Indications: Essential hypertension, benign (CMS/HCC) Take 1 tablet (100 mg) by mouth Daily 30 tablet 5 12/11/2023 12/10/2024 Active meloxicam 15 mg oral tablet (8 sources) Nonsteroidal Anti-inflammatory Drug Start: 01-01-20 take 1 tablet by mouth once daily meloxicam (Mobic) 15 MG tablet Indications: Generalized osteoarthrosis, involving multiple sites Take 1 tablet (15 mg) by mouth Daily 90 tablet 3 01/01/2024 Active metFORMIN hydrochloride 1000 mg oral tablet (8 sources) Biguanide Start: 01-16-20 End: 01-16-20 take 1 tablet by mouth in the morning for diabetes mellitus metFORMIN (Glucophage) 1000 MG tablet Indications: Type 2 diabetes mellitus with hyperglycemia, without long-term current use of insulin (CMS/HCC) Take 1 tablet (1,000 mg) by mouth in the morning and 1 tablet (1,000 mg) before bedtime. for diabetes. 60 tablet 01/16/2024 01/15/2025 Active pantoprazole 40 mg delayed release oral tablet (8 sources) Proton Pump Inhibitor take 1 tablet by mouth before mealtime pantoprazole (ProtoNix) 40 MG EC tablet Take 40 mg by mouth in the morning. Take before meals. Do not crush, chew, or split.. Active pioglitazone 45 mg oral tablet (8 sources) Peroxisome Proliferator Receptor alpha Agonist, Peroxisome Proliferator Receptor gamma Agonist, Thiazolidinedione Start: 04-28-20 End: 04-28-20 take 1 tablet by mouth once daily pioglitazone (Actos) 45 MG tablet Indications: Type 2 diabetes mellitus with hyperglycemia, without long-term current use of insulin (CMS/HCC) Take 1 tablet (45 mg) by mouth Daily 90 tablet 3 04/28/2024 04/28/2025 Active primidone 50 mg oral tablet (8 sources) Anti-epileptic Agent Start: 01-15-20 take 2 tablets by mouth at bedtime primidone (Mysoline) 50 MG tablet Indications: Type 2 diabetes mellitus with hyperglycemia, without long-term current use of insulin (CMS/HCC) Take 2 (two) Tablet by mouth at bedtime 60 tablet 3 01/15/2024 Active venlafaxine 100 mg oral tablet (8 sources) Serotonin and Norepinephrine Reuptake Inhibitor Start: 01-01-20 take 1 tablet by mouth in the morning, then take 1 tablet by mouth in the evening, then take 1 tablet by mouth at bedtime venlafaxine (Effexor) 100 MG tablet Indications: Generalized anxiety disorder (CMS/HCC) Take 1 tablet (100 mg) by mouth in the morning and 1 tablet (100 mg) in the evening and 1 tablet (100 mg) before bedtime. 90 tablet 5 01/01/2024 Active Problems Active Problems Problem Classification Problem Date Documented Date Episodic/Chronic Anxiety disorders (16 sources) Generalized anxiety disorder; Translations: [Generalized anxiety disorder] Onset: 10-16-2023 Resolved: 10-16-2023 10-16-2023 Chronic Diabetes mellitus with complications (17 sources) Type 2 diabetes mellitus with hyperglycemia; Translations: [Hyperglycemia due to type 2 diabetes mellitus] Onset: 04-22-2022 Chronic Disorders of lipid metabolism (8 sources) Dyslipidemia; Translations: [Hyperlipidemia, unspecified] Onset: 10-16-2023 10-16-2023 Chronic Esophageal disorders (8 sources) Gastroesophageal reflux disease; Translations: [Gastro-esophageal reflux disease without esophagitis] Onset: 10-16-2023 10-16-2023 Chronic Essential hypertension (10 sources) Benign essential hypertension; Translations: [Essential (primary) hypertension] Onset: 10-16-2023 10-16-2023 Chronic Immunity disorders (2 sources) Secondary immune deficiency disorder; Translations: [Immunodeficiency due to conditions classified elsewhere ([facility])] 05-26-2024 Chronic Miscellaneous mental health disorders (8 sources) Primary insomnia; Translations: [Primary insomnia] Onset: 10-16-2023 10-16-2023 Chronic Mood disorders (8 sources) Moderate recurrent major depression; Translations: [Major depressive disorder, recurrent, moderate] Onset: 10-16-2023 10-16-2023 Chronic Nutritional deficiencies (9 sources) Vitamin D deficiency, unspecified; Translations: [Vitamin D deficiency] Onset: 04-22-2022 10-16-2023 Chronic Osteoarthritis (8 sources) Degenerative joint disease involving multiple joints; Translations: [Polyosteoarthritis, unspecified] Onset: 10-16-2023 10-16-2023 Chronic Other hereditary and degenerative nervous system conditions (8 sources) Essential tremor; Translations: [Essential tremor] Onset: 10-16-2023 10-16-2023 Chronic Other nutritional; endocrine; and metabolic disorders (8 sources) Body mass index 30+ - obesity; Translations: [Obesity, unspecified] Onset: 10-16-2023 10-16-2023 Chronic Residual codes; unclassified (8 sources) Obstructive sleep apnea syndrome; Translations: [Obstructive sleep apnea (adult) (pediatric)] Onset: 10-16-2023 10-16-2023 Chronic Skin and subcutaneous tissue infections (12 sources) Cellulitis of left upper limb; Translations: [Cellulitis of left upper limb] Onset: 05-14-2024 05-14-2024 Episodic Spondylosis; intervertebral disc disorders; other back problems (8 sources) Degeneration of cervical intervertebral disc; Translations: [Other cervical disc degeneration, unspecified cervical region] Onset: 10-16-2023 10-16-2023 Chronic Past or Other Problems Problem Classification Problem Date Documented Date Episodic/Chronic Medical examination/evaluatio n (2 sources) Encounter for other preprocedural examination; Translations: [Encounter for other preprocedural examination] Onset: 10-09-2017 Episodic Other aftercare (8 sources) Long-term current use of drug therapy; Translations: [Other alf (current) drug therapy] Onset: 01-01-2024 01-01-2024 Episodic Other nervous system disorders (1 source) Other acute postprocedural pain; Translations: [Other acute postprocedural pain] Onset: 10-21-2017 Episodic Other non-traumatic joint disorders (8 sources) Pain in right knee; Translations: [Pain in joint, lower leg] Onset: 10-16-2023 10-16-2023 Episodic Other non-traumatic joint disorders (8 sources) Chronic pain of right upper limb; Translations: [Pain in right shoulder] Onset: 10-16-2023 10-16-2023 Episodic Other nutritional; endocrine; and metabolic disorders (8 sources) Morbid obesity; Translations: [Morbid (severe) obesity due to excess calories] Onset: 01-01-2024 Resolved: 01-01-2024 01-01-2024 Chronic Spondylosis; intervertebral disc disorders; other back problems (8 sources) Cervical radiculopathy; Translations: [Radiculopathy, cervical region] Onset: 10-16-2023 10-16-2023 Episodic Results Test Name Value Interpretation Reference Range Facility ACID FAST SMEARon 05-19-2024 ACID FAST SMEAR Acid Fast Smear Negative [facility] AFB SPECIMEN PROCESSINGon AFB SPECIMEN PROCESSING AFB Specimen Processing [facility] AFB SPECIMEN PROCESSING Tissue Grinding [facility] No Panel Informationon 05-19 [facility] ACID FAST SMEARon 05-18-2024 ACID FAST SMEAR Acid Fast Smear Negative [facility] AFB SPECIMEN PROCESSINGon AFB SPECIMEN PROCESSING AFB Specimen Processing [facility] AFB SPECIMEN PROCESSING Tissue Grinding [facility] No Panel Informationon 05-18 Comment left arm wou nd for C S, gram, aerobic anaer [facility] Consent [id number]#1.00CD:12 7 [facility] Registrationon 03-07-2023 Registration [id number]#1.00CD:12 7 [facility] [place] 12-17-2022 Consent [id number]#1.00CD:1 27 [facility] In office Testingon 12-18-19 23 In office Testing [id number]#1.00CD:12 7 Normal [facility] In office Testing [id number]#1.00CD:12 7 Normal [facility] Registrationon 12-17-2022 Registration [id number]#1.00CD:1 27 Normal [facility] GLYCOHEMOGLOBIN A1Con 2022 ADA RECOMMENDATION SEE BELOW Normal [facility] Comment on above: Result Comment: ADA RECOMMENDED LIMIT 4.0 - 6.0 ADA THERAPEUTIC TARGET < 7.0 ACTION SUGGESTED > 7.0 Performed By: #### A 1C #### Laboratory [address] [place] [address] Dr. Kelton Ludwig Glucose [Mass/Vol] 263 mg/dL Normal [facility] Comment on above: Performed By: #### A 1C #### Laboratory [address] [address] [address] Kelton Ludwig HbA1c (Bld) [Mass fraction] 10.8 % Critically high 4.5-6.2 [facility] Comment on above: Performed By: #### A 1C #### Laboratory [address] [place] [address] Dr. Kelton Ludwig [place] 06-18-2022 Consent [id number]#1.00CD:12 7 Normal [facility] In office Testingon 06-18-20 22 In office Testing [id number]#1.00CD:1 27 [facility] Registrationon 06-18-2022 Registration [id number]#1.00CD:12 7 [facility] MICROALBUMIN URINEon 022 Albumin, Urine 32.3 ug/mL Normal Not Estab. [facility] Comment on above: Performed By: #### M ALBLC #### Laboratory [address] [address] [address] Kelton Ludwig VIT D 25-OH LABCORPon 2021 Vitamin D, 25-Hydroxy 37.9 ng/mL Normal 30.0-100.0 The Comment on above: Result Comment: Hemalatha min D deficiency has been defined by the [employer] and an Endocrine Society practice guideline as a level of serum 25-OH vitamin D less than 20 ng/mL (1,2). The Endocrine Society went on to further define vitamin D insufficiency as a level between 21 and 29 ng/mL (2). 1. IOM ([employer] of [employer]). 2010. Dietary reference intakes for calcium and D. [place]: The National Academies Press. 2. German ABEBE, Arturo JIANG, Dolores WAYNE, et al. Evaluation, treatment, and prevention of vitamin D deficiency: an Endocrine Society clinical practice guideline. JCEM. 2010; 96(7):1911-30. Performed By: #### V ITADLC #### Laboratory [address] [place] [address] Dr. Kelton Ludwig CBC AUTO DIFFon 04-19-2022 BASO # 0.0 103/ul Normal 0.0-0.1 [facility] Comment on above: Performed By: #### C BC #### Laboratory [address] [place] [address] Dr. Kelton Ludwig Basophils/100 WBC (Bld) 0.6 % Normal 0.2-2.0 The Comment on above: Performed By: #### C BC #### Laboratory [address] [place] [address] Dr. Kelton Ludwig EO # 0.3 103/ul Normal 0.0-0.7 The Comment on above: Performed By: #### C BC #### Laboratory [address] [place] [address] Dr. Kelton Ludwig Eosinophils/100 WBC (Bld) 3.5 % Normal 0.9-7.0 The Comment on above: Performed By: #### C BC #### Laboratory [address] [place] [address] Dr. Kelton Ludwig Erythrocyte distribution width (RBC) [Ratio] 12.6 % Normal 11.0-15.0 [facility] Comment on above: Performed By: #### C BC #### Laboratory [address] [place] [address] Dr. Kelton Ludwig Hematocrit (Bld) [Volume fraction] 44.6 % Normal 42.0-54.0 [facility] Comment on above: Performed By: #### C BC #### Laboratory [address] [place] [address] Dr. Kelton Ludwig Hemoglobin (Bld) [Mass/Vol] 14.1 g/dL Normal 14.0-18.0 The Comment on above: Performed By: #### C BC #### Laboratory [address] [place] [address] Dr. Kelton Ludwig IG # 0.03 10e3/ul Normal 0.00-0.03 [facility] Comment on above: Performed By: #### C BC #### Laboratory [address] [place] [address] Dr. Kelton Ludwig IG % 0.4 % Normal 0.0-0.5 [facility] Comment on above: Performed By: #### C BC #### Laboratory [address] [place] [address] Dr. Kelton Ludwig LYMPH # 1.2 103/ul Normal 1.2-3.8 The Comment on above: Performed By: #### C BC #### Laboratory [address] [place] [address] Dr. Kelton Ludwig Lymphocytes/100 WBC (Bld) 16.9 % Critically low 20.5-60.0 The Comment on above: Performed By: #### C BC #### Laboratory [address] [place] [address] Dr. Kelton Ludwig MANUAL DIFF REQ NO Normal [facility] Comment on above: Performed By: #### C BC #### Laboratory [address] [place] [address] Dr. Kelton Ludwig MCH (RBC) [Entitic mass] 29.7 pg Normal 25.9-34.0 [facility] Comment on above: Performed By: #### C BC #### Laboratory [address] [place] [address] Dr. Kelton Ludwig MCHC (RBC) [Mass/Vol] 31.6 g/dL Normal 29.9-35.2 [facility] Comment on above: Performed By: #### C BC #### Laboratory [address] [place] [address] Dr. Kelton Ludwig MCV (RBC) [Entitic vol] 94.1 fL Critically high 80.0-94.0 [facility] Comment on above: Performed By: #### C BC #### Laboratory [address] [place] [address] Dr. Kelton Ludwig MONO # 0.5 103/ul Normal 0.3-0.8 [facility] Comment on above: Performed By: #### C BC #### Laboratory [address] [place] [address] Dr. Kelton Ludwig Monocytes/100 WBC (Bld) 7.3 % Normal 1.7-12.0 [facility] Comment on above: Performed By: #### C BC #### Laboratory [address] [place] [address] Dr. Kelton Ludwig NEUT # 5.1 103/ul Normal 1.4-6.5 [facility] Comment on above: Performed By: #### C BC #### Laboratory [address] [place] [address] Dr. Kelton Ludwig Neutrophils/100 WBC (Bld) 71.3 % Normal 43.0-75.0 The Comment on above: Performed By: #### C BC #### Laboratory [address] [place] [address] Dr. Kelton Ludwig Platelet mean volume (Bld) [Entitic vol] 10.3 fL Normal 9.5-13.5 The Comment on above: Performed By: #### C BC #### Laboratory [address] [place] [address] Dr. Kelton Ludwig PLT 221 103/ul Normal 150-450 The Comment on above: Performed By: #### C BC #### Laboratory [address] [address] [address] Kelton Ludwig RBC 4.74 106/ul Normal 4.70-6.10 [facility] Comment on above: Performed By: #### C BC #### Laboratory [address] [place] [address] Dr. Kelton Ludwig WBC 7.1 103/ul Normal 4.0-11.0 [facility] Comment on above: Performed By: #### C BC #### Laboratory [address] [place] [address] Dr. Kelton Ludwig GLYCOHEMOGLOBIN A1Con 2021 ADA RECOMMENDATION SEE BELOW Normal [facility] Comment on above: Result Comment: ADA RECOMMENDED LIMIT 4.0 - 6.0 ADA THERAPEUTIC TARGET < 7.0 ACTION SUGGESTED > 7.0 Performed By: #### A 1C #### Laboratory [address] [place] [address] Dr. Kelton Ludwig Glucose [Mass/Vol] 194 mg/dL Normal [facility] Comment on above: Performed By: #### A 1C #### Laboratory [address] [place] [address] Dr. Kelton Ludwig HbA1c (Bld) [Mass fraction] 8.4 % Critically high 4.5-6.2 [facility] Comment on above: Performed By: #### A 1C #### Laboratory [address] [place] [address] Dr. Kelton Ludwig LIPID PROFILEon 04-19-2022 CHOL-HDL RATIO NORM SEE BELOW Normal [facility] Comment on above: Result Comment: 3.3 - 4.4 LOW RISK 4.4 - 7.1 AVERAGE RISK 7.1 - 11.0 MODERATE RISK >11.0 HIGH RISK Performed By: #### T SH, LIPID, BMP, LIVER #### Laboratory [address] [place] [address] Dr. Kelton Ludwig Cholesterol [Mass/Vol] 179 mg/dL Normal <=200 [facility] Comment on above: Performed By: #### T SH, LIPID, BMP, LIVER #### Laboratory [address] [address] [address] Kelton Ludwig Cholesterol in HDL [Mass/Vol] 49 mg/dL Normal 40-60 [facility] Comment on above: Performed By: #### T SH, LIPID, BMP, LIVER #### Laboratory [address] [address] [address] Kelton Ludwig Cholesterol in LDL [Mass/Vol] 118.4 mg/dL Normal [facility] Comment on above: Performed By: #### T SH, LIPID, BMP, LIVER #### Laboratory [address] [address] [address] Kelton Ludwig Cholesterol.total/C holesterol in HDL [Mass ratio] 3.7 {ratio} Normal [facility] Comment on above: Performed By: #### T SH, LIPID, BMP, LIVER #### Laboratory [address] [address] [address] Kelton Ludwig HDL NORMAL > or = 60 mg/dl - LO W CARDIOVASCULAR RISK <40 mg/dl - HIGH CARDIOVASCULAR RISK Normal [facility] Comment on above: Performed By: #### T SH, LIPID, BMP, LIVER #### Laboratory [address] [address] [address] Kelton Ludwig LDL CALC NORMAL SEE BELOW Normal [facility] Comment on above: Result Comment: <100 mg/dl OPTIMAL 100 - 129 mg/dl NEAR OR ABOVE OPTIMAL 130 - 159 mg/dl BORDERLINE HIGH 160 - 189 mg/dl HIGH >190 mg/dl VERY HIGH Performed By: #### T SH, LIPID, BMP, LIVER #### Laboratory [address] [address] [address] Kelton Ludwig Triglyceride [Mass/Vol] 58 mg/dL Normal <=150 [facility] Comment on above: Performed By: #### T SH, LIPID, BMP, LIVER #### Laboratory [address] [address] [address] Kelton Ludwig VLDL CALC 11.6 mg/dL Normal [facility] Comment on above: Performed By: #### T SH, LIPID, BMP, LIVER #### Laboratory [address] [place] [address] Dr. Kelton Ludwig LIVER PROFILEon 04-19-2022 Albumin [Mass/Vol] 3.8 g/dL Normal 3.4-5.0 [facility] Comment on above: Performed By: #### T SH, LIPID, BMP, LIVER #### Laboratory [address] [place] [address] Dr. Kelton Ludwig Albumin/Globulin [Mass ratio] 1.3 {ratio} Normal [facility] Comment on above: Performed By: #### T SH, LIPID, BMP, LIVER #### Laboratory [address] [place] [address] Dr. Kelton Ludwig ALP [Catalytic activity/Vol] 51 U/L Normal 46-116 [facility] Comment on above: Performed By: #### T SH, LIPID, BMP, LIVER #### Laboratory [address] [place] [address] Dr. Kelton Ludwig ALT [Catalytic activity/Vol] 18 U/L Normal 16-63 [facility] Comment on above: Performed By: #### T SH, LIPID, BMP, LIVER #### Laboratory [address] [place] [address] Dr. Kelton Ludwig AST [Catalytic activity/Vol] 12 U/L Critically low 15-37 [facility] Comment on above: Performed By: #### T SH, LIPID, BMP, LIVER #### Laboratory [address] [place] [address] Dr. Kelton Ludwig BILI, CONJUGATED 0.2 mg/dL Normal 0.0-0.2 [facility] Comment on above: Performed By: #### T SH, LIPID, BMP, LIVER #### Laboratory [address] [place] [address] Dr. Kelton Ludwig Bilirubin [Mass/Vol] 0.6 mg/dL Normal 0.2-1.0 [facility] Comment on above: Performed By: #### T SH, LIPID, BMP, LIVER #### Laboratory [address] [place] [address] Dr. Kelton Ludwig Globulin (S) [Mass/Vol] 3.0 g/dL Normal [facility] Comment on above: Performed By: #### T SH, LIPID, BMP, LIVER #### Laboratory [address] [address] [address] Kelton Ludwig Protein [Mass/Vol] 6.8 g/dL Normal 6.4-8.2 [facility] Comment on above: Performed By: #### T SH, LIPID, BMP, LIVER #### Laboratory [address] [place] [address] Dr. Kelton Ludwig PROF CHEM 8 (BAS METB)on Anion gap [Moles/Vol] 8.2 mmol/L Normal [facility] Comment on above: Performed By: #### T SH, LIPID, BMP, LIVER #### Laboratory [address] [place] [address] Dr. Kelton Ludwig Calcium [Mass/Vol] 8.9 mg/dL Normal 8.5-10.1 [facility] Comment on above: Performed By: #### T SH, LIPID, BMP, LIVER #### Laboratory [address] [place] [address] Dr. Kelton Ludwig Chloride [Moles/Vol] 104 mmol/L Normal 98-107 The Comment on above: Performed By: #### T SH, LIPID, BMP, LIVER #### Laboratory [address] [place] [address] Dr. Kelton Ludwig CO2 [Moles/Vol] 31.2 mmol/L Normal 21.0-32.0 [facility] Comment on above: Performed By: #### T SH, LIPID, BMP, LIVER #### Laboratory [address] [address] [address] Kelton Ludwig Creatinine [Mass/Vol] 1.08 mg/dL Normal 0.70-1.30 [facility] Comment on above: Performed By: #### T SH, LIPID, BMP, LIVER #### Laboratory [address] [place] [address] Dr. Kelton Ludwig EGFR-AF CITIZEN OF [place] >60 Normal >=60 [facility] Comment on above: Performed By: #### T SH, LIPID, BMP, LIVER #### Laboratory [address] [place] [address] Dr. Kelton Ludwig EGFR-NON AF CITIZEN OF [place] >60 Normal >=60 [facility] Comment on above: Performed By: #### T SH, LIPID, BMP, LIVER #### Laboratory [address] [address] [address] Kelton Ludwig Glucose [Mass/Vol] 171 mg/dL Critically high 74-106 [facility] Comment on above: Performed By: #### T SH, LIPID, BMP, LIVER #### Laboratory [address] [place] [address] Dr. Kelton Ludwig Potassium [Moles/Vol] 4.4 mmol/L Normal 3.5-5.1 [facility] Comment on above: Performed By: #### T SH, LIPID, BMP, LIVER #### Laboratory [address] [place] [address] Dr. Kelton Ludwig Sodium [Moles/Vol] 139 mmol/L Normal 136-145 [facility] Comment on above: Performed By: #### T SH, LIPID, BMP, LIVER #### Laboratory [address] [place] [address] Dr. Kelton Ludwig Urea nitrogen [Mass/Vol] 20.0 mg/dL Critically high 7.0-18.0 [facility] Comment on above: Performed By: #### T SH, LIPID, BMP, LIVER #### Laboratory [address] [place] [address] Dr. Kelton Ludwig Urea nitrogen/Creatinine [Mass ratio] 18.5 mg/mg Normal [facility] Comment on above: Performed By: #### T SH, LIPID, BMP, LIVER #### Laboratory [address] [place] [address] Dr. Kelton Ludwig TSHon 04-19-2022 TSH 0.837 uIU/mL Normal 0.358-3.740 [facility] Comment on above: Performed By: #### T SH, LIPID, BMP, LIVER #### Laboratory [address] [address] [address] Kelton Ludwig Progress Noteon 03-31-2018 HIM IP Note OR Cupola Worker Normal [facility] HIM IP Note OR Cupola Worker Normal [facility] Progress Noteon 01-03-2018 HIM IP Note OR Cupola Worker Normal [facility] Progress Noteon 12-23-2017 HIM IP Note OR Cupola Worker Normal [facility] Progress Noteon 12-09-2017 HIM IP Note OR Cupola Worker Normal [facility] Progress Noteon 12-06-2017 HIM IP Note OR Cupola Worker Normal [facility] Discharge Summaryon 10-23-19 18 HIM IP Note OR Cupola Worker Normal [facility] Plan of Careon 10-22-2017 HIM IP Note OR Cupola Worker Normal [facility] HIM IP Note OR Cupola Worker Normal [facility] Progress Noteon 10-22-2017 HIM IP Note OR Cupola Worker Normal [facility] HIM IP Note OR Cupola Worker Normal [facility] Interval History and Physion 10-21-2017 HIM IP Note OR Cupola Worker Normal [facility] OPERATIVE REPORTon 8 OPERATIVE REPORT [address] [address] OPERATIVE REPORTPATIENT NAME: SANTO SCOTT : 1960[facility] REC NO: [id number] ROOM: [address] [place] [address] NO: [id number] ADMIT DATE: 10/21/2017PROVIDER: Megan Matias, MDDATE OF PROCEDURE: 10/21/2017SURGEON: Megan Matias MDASSISTANT: SIMON DianaOPERATIVE DIAGNOSES:1. Severe spinal stenosis, C6-C7, with left [...] the disk space. We then placed our Paoli pins to mobilizethe space. We gently distracted [...] no evidence of significant bleeding at all. David packed a little bit more graft anteriorly along the endplate. We thenclosed the platysma over a drain using 2-0 Vicryl. 4-0 Vicryl subcuticularin the skin. Dressing applied. The patient transferred to bed, awokenfrom anesthesia, and brought to recovery room.MEGAN MATIAS, MDD: 10/21/2017 10:38:52 [id number]#: [id number] Doc#: [id number]: Megan Matias MD Normal [facility] Op Noteon 10-21-2017 HIM IP Note OR Cupola Worker Normal [facility] Progress Noteon 10-21-2017 HIM IP Note OR Cupola Worker Normal [facility] HIM IP Note OR Cupola Worker Normal [facility] HIM IP Note OR Cupola Worker Normal [facility] XR CERVICAL SPINE 1 VWon XR CERVICAL SPINE 1 VW Radiology exam is complete. No Radiologist dictation. Please follow up with ordering provider. Final result Normal [facility] Protein mass conc EXAMINATION:1 VIEW O [...] 8:49 a.m.on 10/21/2017Interpreted by:GLORIA Sheldonigned by:Judy Mendez MD10/21/17inal result Normal [facility] XR CERVICAL SPINE 1 VW Radiology exam is complete. No Radiologist dictation. Please follow up with ordering provider. Final result Normal [facility] BUN + Creatinineon 8 (cont.) Normal [facility] Comment on above: Result Comment: Aver age GFR for 50-59 years old: 93 mL/min/1.73sq mChronic Kidney Disease: <60 mL/min/1.73sq mKidney failure: <15 mL/min/1.73sq meGFR calculated using average adult body mass. Additional eGFR calculator available at:[email or web address] [address] [place] [address] Performed By: #### B UNCRT, GLU, LYTE ####[address] [place] [address] Creatinine mass conc 0.75 mg/dL Normal 0.70-1.20 [facility] Comment on above: Performed By: #### B UNCRT, GLU, LYTE ####[facility] [address] [place] [address] GFR, Amer >60 Normal >60 [facility] Comment on above: Performed By: #### B UNCRT, GLU, LYTE ####[facility] [address] [place] [address] GFR,non Amer >60 Normal >60 [facility] Comment on above: Performed By: #### B UNCRT, GLU, LYTE ####[facility] [address] [place] [address] Urea nitrogen mass conc 10 mg/dL Normal 6-20 [facility] Comment on above: Performed By: #### B UNCRT, GLU, LYTE ####[facility] GmbHGvegqvddgsrp[address] [place] [address] Staging: NOT REPORTED Normal [facility] Comment on above: Performed By: #### B UNCRT, GLU, LYTE ####[facility] [address] [place] [address] Electrolyteson 10-09-2017 Anion gap 3 molar conc 11 mmol/L Normal 9-17 [facility] Comment on above: Result Comment: [facility] [address] [place] [address] Performed By: #### B UNCRT, GLU, LYTE ####[facility] GmbHLzulohrqcvnm[address] [place] [address] Chloride molar conc 101 mmol/L Normal 98-107 [facility] Comment on above: Performed By: #### B UNCRT, GLU, LYTE ####[facility] [address] [place] [address] CO2 molar conc 27 mmol/L Normal 20-31 [facility] Comment on above: Performed By: #### B UNCRT, GLU, LYTE ####[facility] [address] [place] [address] Potassium molar conc 4.0 mmol/L Normal 3.7-5.3 [facility] Comment on above: Performed By: #### B UNCRT, GLU, LYTE ####[facility] [address] [place] [address] Sodium molar conc 139 mmol/L Normal 135-144 [facility] Comment on above: Performed By: #### B UNCRT, GLU, LYTE ####[facility] [address] [place] [address] Glucoseon 10-09-2017 Glucose mass conc 149 mg/dL High 70-99 [facility] Comment on above: Result Comment: [id number] [place] [address] Performed By: #### B UNCRT, GLU, LYTE ####[facility] [address] [place] [address] History and Physicalon 10-09 HIM IP Note OR Cupola Worker Normal [facility] Progress Noteon 10-09-2017 HIM IP Note OR Cupola Worker Normal [facility] Vital Signs Date Time Vital Sign Value Performing Clinician Brittni plunkett 05-26-2024 11:31-0400 Body mass index (BMI) [Ratio] 33.12 kg/m2 Harris Bang MD Work Phone: [facility] 05-26-2024 11:31-0400 Body temperature 97.3 [degF] Harris Bang MD Work Phone: [facility] 05-26-2024 11:31-0400 Body weight 120.2 kg Harris Bang MD Work Phone: [facility] 05-26-2024 11:31-0400 Diastolic blood pressure 78 mm[Hg] Harris Bang MD Work Phone: [facility] 05-26-2024 11:31-0400 Heart rate 78 /min Harris Bang MD Work Phone: [facility] 05-26-2024 11:31-0400 SaO2% (BldA) [Mass fraction] 98 % Harris Bang MD Work Phone: [facility] 05-26-2024 11:31-0400 Systolic blood pressure 146 mm[Hg] Harris Bang MD Work Phone: [facility] 05-14-2024 15:37-0400 Body height 190.5 cm Harris Bang MD Work Phone: [facility] 05-14-2024 15:37-0400 Body mass index (BMI) [Ratio] 33.5 kg/m2 Harris Bang MD Work Phone: [facility] 05-14-2024 15:37-0400 Body temperature 97.11 [degF] Harris Bang MD Work Phone: [facility] 05-14-2024 15:37-0400 Body weight 121.56 kg Harris Bang MD Work Phone: [facility] 05-14-2024 15:37-0400 Diastolic blood pressure 60 mm[Hg] Harris Bang MD Work Phone: [facility] 05-14-2024 15:37-0400 Heart rate 87 /min Harris Bang MD Work Phone: [facility] 05-14-2024 15:37-0400 Respiratory rate 18 /min Harris Bang MD Work Phone: [facility] 05-14-2024 15:37-0400 SaO2% (BldA) [Mass fraction] 98 % Harris Bang MD Work Phone: [facility] 05-14-2024 15:37-0400 Systolic blood pressure 120 mm[Hg] Harris Bang MD Work Phone: [facility] Encounters Encounter Date Encounter Type Care Provider Facility Start: 05-26-2024 End: 05-26-2024 Bamboo flowsheet Harris Bang MD Work Phone: [facility] Start: 05-26-2024 End: 05-26-2024 Bamboo flowsheet Harris Bang MD Work Phone: [facility] Start: 05-26-2024 End: 05-26-2024 Transitional care manage srvc 7 day discharge Harris Bang MD Work Phone: [facility] Comment on above: Cellulitis of left a rm (Primary Dx); Essential hypertension, benign ([facility]); Type 2 diabetes mellitus with hyperglycemia, without long-term current use of insulin ([facility]); Immunodeficiency due to conditions classified elsewhere ([facility]) Start: 05-26-2024 End: 05-26-2024 ambulatory HARRIS BANG Not Available Start: 05-18-2024 End: 05-19-2024 Clinisync Result Encounter Generic External Data Provider [facility] External Department Unsolicited Start: 05-18-2024 End: 05-19-2024 Clinisync Result Encounter Generic External Data Provider [facility] External [facility] Unsolicited Start: 05-16-2024 End: 05-18-2024 Clinisync Result Encounter Generic External Data Provider [facility] External Department Unsolicited Start: 05-16-2024 End: 05-18-2024 Clinisync Result Encounter Generic External Data Provider [facility] External Department Unsolicited Start: 05-14-2024 End: 05-14-2024 ambulatory HARRIS BANG Not Available Start: 05-14-2024 End: 05-14-2024 Office outpatient visit 15 minutes Harris Bang MD Work Phone: [facility] Comment on above: Cellulitis of left a rm (Primary Dx); Type 2 diabetes mellitus with hyperglycemia, without long-term current use of insulin ([facility]) Start: 05-14-2024 End: 05-17-2024 Clinisync Result Encounter Generic External Data Provider [facility] External Department Unsolicited Start: 05-14-2024 End: 05-17-2024 Clinisync Result Encounter Generic External Data Provider [facility] External Department Unsolicited Start: 01-01-2024 End: 01-01-2024 ambulatory HARRIS BANG Not Available Start: 10-16-2023 End: 10-16-2023 ambulatory HARRIS BANG Not Available Start: 03-07-2023 End: 03-08-2023 ambulatory [facility] Start: 12-17-2022 End: 12-18-2022 ambulatory Ivanna TREADWELL [facility] Start: 11-28-2022 End: 11-29-[address] HARRIS BANG Facility:[facility] Start: 07-10-[address] HARRIS BANG [facility] ity:[facility]1 Start: 06-18-2022 End: 06-19-2022 ambulatory Ivanna TREADWELL [facility] Start: 04-22-2022 Encounter for genera l adult medical examination without abnormal findings DR HARRIS BANG [facility] Start: 04-19-2022 End: 04-20-[address] HARRIS BANG Facility:[facility] Start: 04-19-2022 End: 04-20-2022 Encounter for general adult medical examination without abnormal findings DR HARRIS BANG Facility:[facility] Start: 10-21-2017 End: 10-22-2017 [facility] Start: 10-09-2017 End: 10-14-2017 Patient encounter MEGAN Burns [facility] Procedures Date Procedure Procedure Detail Performing Clinician Start: 05-18-2024 ACID FAST CULTURE Gener ic External Data Provider Start: 05-18-2024 ACID FAST SMEAR Generic External Data Provider Start: 05-18-2024 AFB SPECIMEN PROCESSING Generic External Data Provider Start: 05-16-2024 ACID FAST CULTURE Gener ic External Data Provider Start: 05-16-2024 ACID FAST SMEAR Generic External Data Provider Start: 05-16-2024 AFB SPECIMEN PROCESSING Generic External Data Provider Start: 05-14-2024 BLOOD CULTURE 2 Generic External Data Provider Start: 05-14-2024 BLOOD CULTURE 1 Generic External Data Provider Start: 04-19-[address] HARRIS SANCHEZ Comment on above: Performed By: #### P [facility] #### Laboratory [address] [address] [address] Kelton Ludwig Start: 03-14-2020 Colonoscopy Harris burk MD Work Phone: Start: 10-22-2017 DISCHARGE PATIENT KAYLIN Lyons JOEL Start: 10-22-2017 POC GLUCOSE FINGERSTICK MEGAN MATIAS Start: 10-22-2017 POC GLUCOSE FINGERSTICK [...] KAYLIN Lyons JOEL Start: 10-21-2017 PLACE INTERMITTENT PNEUMATIC COMPRESSION DEVICE MEGAN MATIAS Start: 10-21-2017 PT [...] spine 1 view s pecify level MEGAN ESQUIVELFLACAJACOB Start: 10-21-2017 POC GLUCOSE FINGERSTICK MEGAN ESQUIVELSAIMA Start: 10-09-2017 BUN AND CREATININE BLAKE ESQUIVELSAIMA Start: 10-09-2017 ELECTROLYTE PANEL KAYLIN ESQUIVELSAIMA Start: 10-09-2017 GLUCOSE, RANDOM MEGAN ESQUIVELFLACAJACOB Start: 10-09-2017 NURSING COMMUNICATION T BIBIEloy JOEL Start: 10-09-2017 EKG 12-LEAD MEGAN AND GABRIELRaudel Plan of Treatment Date Care Activity Detail Author Start: 03-14-2030 Screening for malign ant neoplasm of colon [facility] Start: 02-11-2025 Glaucoma screening Diabetes: R etinopathy Screening [facility] Start: 01-24-2025 Urine screening for protein Diabetes: Urine Protein Screening [facility] Start: 07-14-2024 End: 07-14-2024 Patient encounter procedure 07/14/2024 3:00 PM EST Office Visit [facility] [address] [place] [id number] Harris Bang MD [address] [place] [id number] [facility] Start: 05-26-2024 End: 05-26-2025 Hemoglobin A1c/Hemoglobin.total in Blood Hemoglobin A1c Lab Routine Type 2 diabetes mellitus with hyperglycemia, without long-term current use of insulin ([facility]) Expected: 05/26/2024 (Approximate), Expires: 05/26/2025 [facility] Work Phone: Comment on above: Expected: 05/26/2024 (Approximate), Expires: 05/26/2025 Start: 05-26-2024 End: 05-26-2024 Patient encounter procedure [facility] Comment on above: Arrived Start: 04-05-2024 Influenza vaccination Influenza Vacc ine (#1) [facility] Start: 02-08-2024 Hemoglobin A1c measurement Diabetes: Hemoglobin A1C [facility] Start: 11-09-2023 Hemoglobin A1c measurement Diabetes: Hemoglobin A1C [facility] Start: 1978 Urine screening for protein Diabetes: Urine Protein Screening [facility] Start: 1960 Screening for malign ant neoplasm of colon [facility] ACID FAST CULTURE ACID FAST CULT URE Lab Routine 05/16/2024 11:38 AM [facility] C[facility] ACID FAST CULT URE Lab Routine 05/18/2024 1:03 PM EDT [facility] BLOOD CULTURE 1 BLOOD CULTURE 1 Lab Routine 05/14/2024 5:06 PM EDT [facility] BLOOD CULTURE 2 BLOOD CULTURE 2 Lab Routine 05/14/2024 5:12 PM EDT [facility] Immunizations Immunization Date Immunization Notes Care Provider Fa cility 07-22-2021 Pfizer Purple Cap SARS-CoV-2 Vaccination Harris Bang MD Work Phone: [facility] 11-05-2020 Pfizer Purple Cap SARS-CoV-2 Vaccination Harris Bang MD Work Phone: [facility] 10-15-2020 Pfizer Purple Cap SARS-CoV-2 Vaccination Harris Bang MD Work Phone: [facility] Payers Date Payer Category Payer Private Health Insurance MAY MADDOX [id number] 2023 Unknown MAY Esteves RAJENDRAKAYLIN BOKCHITO [facility] [id number] 2023-Present [phone] [address] [id number] 2023 Unknown [id number] 2023 Unknown [id number] 2022 Unknown [id number] 2014 Unknown [id number] 1960 Private Health Insurance [id number] 1960 Self-pay 1960 Unknown [id number] 1959 Unknown [id number] 1959 Unknown [id number] 1959 Unknown [id number] [id number] 1959 Unknown [id number] 1259 1959 Unknown [id number] 1259 1959 Unknown [id number] [id number] Social History Date Type Detail Facility Start: 10-16-2023 Tobacco smoking stat [facility] Never smoked tobacco [facility] Start: 10-16-2023 Tobacco use and exposure Smoke less tobacco non-user [facility] Start: 10-09-2023 End: 10-16-2023 [facility] of [facility] Start: 10-09-2023 End: 10-16-2023 Social connection and isolation panel [facility] How often do you att end denominational or baptism services? Patient declined [facility] Do you belong to any clubs or organizations such as denominational groups, unions, fraternal or athletic groups, or school groups? No [facility] Are you now , , , , never or living with a partner? [facility] How often to you hav e a drink containing alcohol? 2-4 times a month [facility] How many standard dr inks containing alcohol do you have on a typical day? 1 or 2 [facility] How often do you hav e 6 or more drinks on 1 occasion? Never [facility] How hard is it for y ou to pay for the very basics like food, housing, medical care, and heating Somewhat hard [facility] Do you feel stress - tense, restless, nervous, or anxious, or unable to sleep at night because your mind is troubled all the time - these days [OSQ] Only a little [facility] (I/We) worried wheth er (my/our) food would run out before (I/we) got money to buy more. Never true [facility] Start: 1960 Sex assigned at Male [facility] Start: 06-02-2023 Gender identity Identifies as male gender (finding) [facility] Start: 06-02-2023 Sexual orientation Heterosexual (fin ding) [facility] Medical Equipment Procedure Code Equipment Code Equipment Origin al Text Equipment Identifier Dates 1 each by In Vit ro route Daily [id number] Start: 03-19-2024 History of Present illness Narrative 05-26-2024 Harris Bang MD - 05/26/2024 12:25 PM EDFelicity Bang MD - 05/26/2024 12:25 PM EDFelicity Bang MD - 05/26/2024 12:24 PM EDFelicity Bang MD - 05/26/2024 11:30 AM EDT Note Date & Type Note Facility 05-26-2024 History of Presen t illness Narrative Associated Problem(s): Type 2 diabetes mellitus with hyperglycemia, without long-term current use of insulin (CMS/HCC) BS elevated and monitor. Stick to ADA diet and limit carbs. Repeat A1C prior to next visit. Associated Problem(s): Essential hypertension, benign (CMS/HCC) BP controlled and monitor PRN. Associated Problem(s): Cellulitis of left arm Wound healing and follow with wound care and ortho. Continue antibiotics as prescribed. Images from the original note were not included. Subjective Patient ID: Santo Scott is a 63 y.o. male who presents for Follow-up (Follow up Cut on arm ). Hospital follow up from 05/14-05/19 for cellulitis left arm. 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 Did not get checked and glued closed. Developed redness and swelling in forearm. Increased pain and drainage from wound. To office and directed to ER. Admitted and started antibiotics. Seen by ortho and I&D performed 05/16 and 05/18. Muscle and tendons involved and wound vac placed. Discharged with 14 days Rocephin. Following with wound care and ortho. Feels better and slowly improving. Minimal redness and mild pain. Weakness in left arm and not using arm. BS elevated in hospital and over past few days. Resumed oral medication and BS around 240. Tries to eat well and stick to ADA diet. On insulin in hospital and helped control BS. Review of Systems Constitutional: Negative for fatigue. Respiratory: Negative for cough, shortness of breath and wheezing. Cardiovascular: Negative for chest pain and palpitations. Gastrointestinal: Negative for abdominal pain, diarrhea, nausea and vomiting. Genitourinary: Negative for dysuria. Objective Physical Exam Constitutional: General: He is not in acute distress. Appearance: Normal appearance. HENT: Head: Normocephalic. Right Ear: Tympanic membrane and ear canal normal. Left Ear: Tympanic membrane and ear canal normal. Eyes: Extraocular Movements: Extraocular movements intact. Pupils: Pupils are equal, round, and reactive to light. Cardiovascular: Rate and Rhythm: Normal rate and regular rhythm. Heart sounds: No murmur heard. No friction rub. No gallop. Pulmonary: Breath sounds: Normal breath sounds. No wheezing, rhonchi or rales. Abdominal: General: Bowel sounds are normal. There is no distension. Palpations: Abdomen is soft. Tenderness: There is no abdominal tenderness. There is no guarding or rebound. Musculoskeletal: Left lower leg: No edema. Neurological: Mental Status: He is alert. Assessment/Plan Problem List Items Addressed This Visit Essential hypertension, benign ([facility]) BP controlled and monitor PRN. Type 2 diabetes mellitus with hyperglycemia, without long-term current use of insulin ([facility]) BS elevated and monitor. Stick to ADA diet and limit carbs. Repeat A1C prior to next visit. Relevant Orders Hemoglobin A1c Cellulitis of left arm - Primary Wound healing and follow with wound care and ortho. Continue antibiotics as prescribed. documented in this encounter [facility] History of Present illness Narrative 05-14-2024 Harris Bang MD - 05/14/2024 4:10 PM EDFelicity Bang MD - 05/14/2024 4:07 PM EDFelicity Bang MD - 05/14/2024 3:30 PM EDT Note Date & Type Note Facility 05-14-2024 History of Presen t illness Narrative Associated Problem(s): Type 2 diabetes mellitus with hyperglycemia, without long-term current use of insulin ([facility]) BS elevated with infection and monitor. Associated Problem(s): Cellulitis of left arm Recent cut and infection. Severe cellulitis involving entire left forearm and spreading to upper arm. Patient at risk for complications and recommend ER. Likely will need IV antibiotics. Images from the original note were not included. Subjective Patient ID: Santo Scott is a 63 y.o. male who presents for Arm Injury (Red swollen to elbow). C/o redness and wound on left arm. About 5 weeks ago using a sugar grinder and blade came off cutting left forearm. Did not want a bill and did not go to ER even though thought may need stitches. About 2 weeks ago developed redness up left forearm to wrist. Severe pain and burning in forearm. Skin peeling around wrist. Redness spread to left elbow and up to left upper arm. Developed purulent drainage from wound about 1-2 weeks ago. Afebrile. Mild nausea and fatigue. Reports BS 200-300 over the past few weeks. Tries to eat well and stick to ADA diet. Arm Injury Pertinent negatives include no chest pain. Review of Systems Constitutional: Negative for fatigue. Respiratory: Negative for cough, shortness of breath and wheezing. Cardiovascular: Negative for chest pain and palpitations. Gastrointestinal: Negative for abdominal pain, diarrhea, nausea and vomiting. Genitourinary: Negative for dysuria. Objective Physical Exam Constitutional: General: He is not in acute distress. Appearance: Normal appearance. HENT: Head: Normocephalic. Right Ear: Tympanic membrane and ear canal normal. Left Ear: Tympanic membrane and ear canal normal. Eyes: Extraocular Movements: Extraocular movements intact. Pupils: Pupils are equal, round, and reactive to light. Cardiovascular: Rate and Rhythm: Normal rate and regular rhythm. Heart sounds: No murmur heard. No friction rub. No gallop. Pulmonary: Breath sounds: Normal breath sounds. No wheezing, rhonchi or rales. Abdominal: General: Bowel sounds are normal. There is no distension. Palpations: Abdomen is soft. Tenderness: There is no abdominal tenderness. There is no guarding or rebound. Musculoskeletal: Left lower leg: No edema. Neurological: Mental Status: He is alert. Assessment/Plan Problem List Items Addressed This Visit Cellulitis of left arm - Primary Recent cut and infection. Severe cellulitis involving entire left forearm and spreading to upper arm. Patient at risk for complications and recommend ER. Likely will need IV antibiotics. documented in this encounter [facility] Evaluation note Note Date & Type Note Facility Evaluation note Diagnosis Cellulitis of left arm- Primary Type 2 diabetes mellitus with hyperglycemia, without long-term current use of insulin (CMS/HCC) documented in this encounter [facility] Evaluation note Note Date & Type Note Facility Evaluation note Diagnosis Type 2 diabetes mellitus with hyperglycemia, without long-term current use of insulin (CMS/HCC)- Primary Essential hypertension, benign (CMS/HCC) Essential hypertension, benign Moderate recurrent major depression (CMS/HCC) Major depressive disorder, recurrent episode, moderate Generalized anxiety disorder (CMS/HCC) Generalized anxiety disorder Gastroesophageal reflux disease without esophagitis Esophageal reflux Tremor, essential Essential and other specified forms of tremor Dyslipidemia (CMS/HCC) Other and unspecified hyperlipidemia Type 2 diabetes mellitus with hyperglycemia, without long-term current use of insulin ([facility])- Primary Essential hypertension, benign ([facility]) Essential hypertension, benign Moderate recurrent major depression ([facility]) Major depressive disorder, recurrent episode, moderate Generalized anxiety disorder ([facility]) Generalized anxiety disorder Morbid obesity due to excess calories ([facility]) Obesity (BMI 30-39.9) Generalized osteoarthrosis, involving multiple sites Dyslipidemia ([facility]) Other and unspecified hyperlipidemia Encounter for long-term (current) use of medications Encounter for long-term (current) use of other medications Vitamin D deficiency Cellulitis of left arm- Primary Type 2 diabetes mellitus with hyperglycemia, without long-term current use of insulin ([facility]) Cellulitis of left arm- Primary Essential hypertension, benign ([facility]) Essential hypertension, benign Type 2 diabetes mellitus with hyperglycemia, without long-term current use of insulin ([facility]) Immunodeficiency due to conditions classified elsewhere ([facility]) documented in this encounter [facility] Summary Purpose Family History No Family History [...] section and content) DATE CREATED AUTHOR 04/02/2018 [facility] DATE CREATED AUTHOR AUTHOR'S ORGANIZ ATION 12/03/2022 [facility] DATE CREATED AUTHOR AUTHOR'S ORGANIZ ATION 03/08/2023 [facility] DATE CREATED AUTHOR AUTHOR'S ORGANIZ ATION 05/28/2024 [facility] EPIC Reason for Visit (unrecogniz ed section and content) Reason Comments Arm Injury Red swollen to elbow Reason Comments Follow-up Follow up Cut on arm Care Teams (unrecognized sec tion and content) Parts Finisher Relationship Specialty Start Date End Date Harris Bang MD [address] [place] [address] PCP - General Family Medicine 09/09/23 Parts Finisher Relationship Specialty Start Date End Date Harris Bang MD [address] [place] [id number] PCP - [facility] 09/09/23 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 [employer] [facility] provides no warranty or guarantee of the accuracy or completeness of information in this document.
--- NOTE | 2024-05-28 18:27 | XR_ITS ---
The [address] [address] Patient Name: SANTO PHIPPS MRN: [id number] date: 1960 Sex: M Assigned Patient Location: ER Current Patient Location: Accession/Order Number: [id number] Exam Date: 05/28/2024 19:05 Report Date: 05/28/2024 21:06 At the request of: MARY BAY Procedure: XR chest 1V PORTABLE CHEST X-RAY. INDICATION: Pulled PICC line. COMPARISON: None. TECHNIQUE: Single AP portable chest radiograph. FINDINGS: TUBES AND LINES: None. LUNGS: Lungs are clear. PLEURA: No effusions or pneumothorax. HEART AND MEDIASTINUM: Within normal limits for portable technique. OSSEOUS STRUCTURES: No acute abnormality. XR/XR chest 1V IMPRESSION: No acute findings. No PICC line is not visualized. Electronically authenticated by: BLANCA LANG Date: 05/28/2024 21:06
--- NOTE | 2024-05-28 18:44 | ED_ITS ---
HPI HPI - General Adult General Chief complaint: Skin/Abscess/Foreign Body Stated complaint: picc line dislodged Time Seen by Provider: 05/28/24 18:10 Source: patient Mode of arrival: walk-in Limitations: no limitations History of Present Illness HPI narrative: The patient have a history of recent diagnosis of cellulitis with antibiotic IV given to him through the PICC line daily The patient apparently by mistake with his right PICC line he denies any complaint at the moment He took his dose of antibiotic this morning Related Data Home Medications ?Medication ?Instructions ?Recorded ?Confirmed atorvastatin 40 mg tablet 40 mg PO BEDTIME 05/14/24 05/14/24 blood sugar diagnostic (True 05/14/24 05/14/24 Metrix Glucose Test Strip) citalopram 40 mg tablet 40 mg PO DAILY 05/14/24 05/14/24 empagliflozin 25 mg tablet 25 mg PO DAILY 05/14/24 05/14/24 (Jardiance) glipizide 10 mg tablet 20 mg PO BID 05/14/24 05/14/24 hydrochlorothiazide 25 mg tablet 25 mg PO DAILY 05/14/24 05/14/24 metformin 1,000 mg tablet 1,000 mg PO BID 05/14/24 05/14/24 pantoprazole 40 mg tablet,delayed 40 mg PO DAILY 05/14/24 05/14/24 release pioglitazone 45 mg tablet 45 mg PO DAILY 05/14/24 05/14/24 primidone 50 mg tablet 100 mg PO BEDTIME 05/14/24 05/14/24 Previous Rx's ?Medication ?Instructions ?Recorded ceftriaxone 2 gram intravenous 2 g IV Q24H 05/19/24 solution ceftriaxone 2 gram solution for 2 g IM DAILY Depp abscess #14 ea 05/19/24 injection Allergies Allergy/AdvReac Type Severity Reaction Status Date / Time No Known Drug Allergies Allergy Verified 05/14/24 16:30 Opioid HPI Opioid Management Most Recent Opioid Data: Last Pain Scale 5 05/19/24 08:21 05/19/24 Last ORT Total Score 0 05/14/24 19:49 05/14/24 Last ORT Risk Category Low Risk 05/14/24 19:49 05/14/24 Review of Systems ROS Status of ROS 10 or more systems reviewed and unremark able except as noted in history and below [facility] Medical History (Updated 05/28/24 @ 18:47 by Donna Michael MD) Secondary immune deficiency disorder ?D89.89 - Other specified disorders involving the immune mechanism, not elsewhere classified (ICD-10) Iron deficiency anemia ?D50.9 - Iron deficiency anemia, unspecified (ICD-10) Essential tremor ?G25.0 - Essential tremor (ICD-10) Depression ?F32.A - Depression, unspecified (ICD-10) Hyponatremia ?E87.1 - Hypo-osmolality and hyponatremia (ICD-10) GERD without esophagitis ?K21.9 - Gastro-esophageal reflux disease without esophagitis (ICD-10) Cellulitis ?L03.90 - Cellulitis, unspecified (ICD-10) HLD (hyperlipidemia) ?E78.5 - Hyperlipidemia, unspecified (ICD-10) Cervical stenosis of spine ?M48.02 - Spinal stenosis, cervical region (ICD-10) Sleep apnea ?G47.30 - Sleep apnea, unspecified (ICD-10) HTN (hypertension) ?I10 - Essential (primary) hypertension (ICD-10) Diabetes ?E11.9 - Type 2 diabetes mellitus without complications (ICD-10) Surgical History (Updated 05/14/24 @ 22:32 by Elizabeth Aguilar RN) History of bariatric surgery ?Z98.84 - Bariatric surgery status (ICD-10) Family History (Updated 05/14/24 @ 19:47 by Elizabeth Aguilar RN) Father Family history of CHF (congestive heart failure) Family history of diabetes mellitus Family history of hypertension Family history of myocardial infarction Mother Family history of CHF (congestive heart failure) Family history of cancer Family history of diabetes mellitus Social History (Updated 05/14/24 @ 19:48 by Elizabeth Aguilar RN) Within the past year, how often did you have a drink containing alcohol: 2-4 times a month Within the past year, how many standard drinks containing alcohol did you have on a typical day: 1 or 2 Within the past year, how often did you have six or more drinks on one occasion: never Total score: 0 Score interpretation: A score less than 4 is consistent with normal alcohol consumption. Smoking status: Former smoker Non-prescribed substance use: denies use Highest level of school completed/degree received: Bachelor's degree Are you now , , , , never or living with a partner: In a typical week, how many times do you talk on the telephone with family, friends, or neighbors: 3 or more times per week How often do you get together with friends or relatives: 3 or more times per week How often do you attend anabaptist or pentecostalism services: never Little interest or pleasure in doing things: not at all Feeling down, depressed, or hopeless: not at all Do you think of yourself as: straight/heterosexual Gender Identity: male Exam Narrative Exam Narrative: Nurses notes and vital signs reviewed and patient is not hypoxic. Right upper extremity the patient have on the medial aspect of the right arm the patient have a the entrance of the PICC line clean no signs of infection Left arm the patient have the wound VAC there is no signs of infection General: Well-appearing and in no apparent distress. Skin: Warm, dry, no pallor noted. No rash. Head: Normocephalic, atraumatic. Neck: Supple, non-tender. Eye: Pupils are equal, round and EOMI. No scleral icterus. Ears, Nose, Mouth, and Throat: TM are clear, no nasal mucosal hypertrophy. Oral mucosa is moist, no posterior oropharynx erythema, uvula is mid-line Cardiovascular: Regular Rate and Rhythm without murmur, gallop or rub. Respiratory: No accessory muscle use or respiratory distress. Lungs are clear to auscultation, no wheezing, rales or rhonchi Chest Wall: no tenderness Back: No midline thoracic or lumbar vertebral tenderness. No CVA tenderness GI: Abdomen is soft, non-distended. Normal bowel sounds. No masses appreciated. No tenderness to palpation. No rebound, guarding, or rigidity noted. Neurological: A&O x4. No cranial nerve dysfunction observed. No truncal ataxia. Moves all extremities. Sensation intact. Psychiatric: Cooperative and interactive. Normal mood and affect. Constitutional Vital Signs, click to edit/add: Last Vital Signs Temp 98.2 F 05/28/24 18:08 Pulse 95 H 05/28/24 18:08 Resp 18 05/28/24 18:08 BP 119/72 05/28/24 18:08 Pulse Ox 100 05/28/24 18:08 O2 Del Method Room Air 05/28/24 18:08 Course Vital Signs Vital signs: Vital Signs Temperature 98.2 F 05/28/24 18:08 Pulse Rate 95 H 05/28/24 18:08 Respiratory Rate 18 05/28/24 18:08 Blood Pressure 119/72 05/28/24 18:08 Pulse Oximetry 100 05/28/24 18:08 Oxygen Delivery Method Room Air 05/28/24 18:08 Temperature 98.2 F 05/28/24 18:08 Pulse Rate 95 H 05/28/24 18:08 Respiratory Rate 18 05/28/24 18:08 Blood Pressure 119/72 05/28/24 18:08 Pulse Oximetry 100 05/28/24 18:08 Oxygen Delivery Method Room Air 05/28/24 18:08 Medical Decision Making MDM Narrative Medical decision making narrative: Right now we will obtain an x-ray just to make sure that the patient did not have any complication from the PICC line being pulled The patient will have a IV dose tomorrow antibiotic we called access line and apparently he does not need any PICC line to be placed as he have only 2 to 3 days left and he can get IV antibiotic daily with peripheral IV Patient will be discharged after negative x-ray Discharge Plan Discharge Patient Disposition: Still a Patient
== END 2024-05-28 21:00 | disposition home or self-care (01) ==
PROVIDERS: Emergency Provider Internal Medicine; PCP Family Medicine
DX: T82.898A Other specified complication of vascular prosthetic devices, implants and grafts, initial encounter (principal); Z87.891 Personal history of nicotine dependence
CPT/HCPCS: 71045; 99283; J0696

== ENCOUNTER 2024-06-03 09:30 | Outpatient (RCR) | payer OTHER, SELFPAY ==
[2024-05-20 09:49] VITALS: BP 144/82; PULSE 80; TEMP 36.3; O2SAT 98
[2024-05-20] MEDS: CEFTRIAXONE 2,000 MG in 0.9 % SODIUM CHLORIDE 100 ML 200 MG IV (09:58)
--- NOTE | 2024-05-20 10:53 | PC.NURSE ---
1030 antibiotic infused, picc flushed with ns, green chg cap applied. wound vac intact left arm, alarming, cannister full, obtained cannister from surgery, cannister replaced per Vincent duron rn, good seal obtained, no alarms at time of release ambulatory
[2024-05-21 09:30] VITALS: BP 121/79; PULSE 89; TEMP 37.2; O2SAT 98
[2024-05-21] MEDS: CEFTRIAXONE 2,000 MG in 0.9 % SODIUM CHLORIDE 100 ML 200 MG IV (09:44)
--- NOTE | 2024-05-21 09:48 | PC.NURSE ---
0930: Pt. to [facility] amb. for daily antibiotic. Seated in recliner. Pt. with wound vac intact to left forearm. Denies issues. PICC line in place to right upper arm and without s&s of infection or infiltration. Flushes easily with good blood return. Site noted to have dried blood around insertion site. No active bleeding noted. VSS. 0944: IV Rocephin initiated at this time. Breakfast tray provided. Denies c/o or needs.
--- NOTE | 2024-05-21 10:26 | PC.NURSE ---
1018: IV Rocephin infused without adverse reaction. PICC line flushed and cap applied. Pt. d/c'd amb. to home.
[2024-05-22] MEDS: CEFTRIAXONE 2,000 MG in 0.9 % SODIUM CHLORIDE 100 ML 200 MG IV (10:28)
[2024-05-22 11:24] VITALS: BP 108/87; PULSE 80; TEMP 37.1; O2SAT 98
--- NOTE | 2024-05-22 11:30 | PC.NURSE ---
0930 Arrival ambulatory. Patient brings all wound vac supplies and new wound vac with him. Alert oriented. PICC intact left upper arm site clear. 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 Old vac removed from left inner forearm. black foam saturated with ns to ease removal. cannister is full of red drainage. Wound Measurements as follows: Length 27.5 cn Width 4.3 cm Depth 1.5 cm 1000 Wound bed clean beefy red. noted muscle and tendon exposed. wound irrigated with normal saline. surrounding skin cleansed with soap and water, dried, skin prep applied to intact surrounding skin, which is intact, only noted some dry skin at wrist area. wound runs from left innner wrist area 27.5 cm towards antecubital area on inner aspect of left forearm. wound windowed with clear kci dressing. non stick vaseline type dressing applied over wound bed due to tendon and muscle exposure(per wound nurse) black granulofoam dressing to wound bed, covered with occlussive kci dressing and suction tubing, obtained excellent seal. Wound vac set to continuous negative pressure of 125 cm. patient tolerated procedure well. 1020 PICC flushed, IV antibiotic initiated. 1050 IV antibiotic infused. Flushed line with NS, new CHG Cap applied to picc port. Tolerated well. 1100 Released ambulatory
[2024-05-23 09:59] VITALS: BP 119/73; PULSE 76; TEMP 36.3; O2SAT 96
--- NOTE | 2024-05-23 10:01 | PC.NURSE ---
Patient arrived with a leak on wound vac. Leak was identified and recovered with two tegaderms at this time. Patients wound vac is operating optimally.
[2024-05-23] MEDS: CEFTRIAXONE 2,000 MG in 0.9 % SODIUM CHLORIDE 100 ML 200 MG IV (10:02)
--- NOTE | 2024-05-23 10:44 | PC.NURSE ---
PICC line flushed with normal saline in a pulsatile fashion and alcohol sponge cap placed on blue cap.
[2024-05-24] MEDS: CEFTRIAXONE 2,000 MG in 0.9 % SODIUM CHLORIDE 100 ML 200 MG IV (09:54)
[2024-05-24 10:51] VITALS: BP 121/79; PULSE 76; TEMP 36.3; O2SAT 96
[2024-05-25] MEDS: CEFTRIAXONE 2,000 MG in 0.9 % SODIUM CHLORIDE 100 ML 200 MG IV (08:56)
[2024-05-25 09:54] VITALS: BP 124/82; PULSE 80; TEMP 36.6; O2SAT 96
--- NOTE | 2024-05-25 09:56 | PC.NURSE ---
904 Arrival ambulatory. Alert oriented. PICC rt upper arm, dressing 1/2 off with catheter exposed. old dressing removed, including stat lock. site cleansed with chg sponge. skin prep applied to site and surrounding skin. 4cm external catheter noted. stat lock applied. site secured with chg dressing. patient tolerated well. Excellent blood return noted, flushes easily. IV antibiotic given as ordered. See 914 left lower arm has ns wet to dry dressing on arrival, (Just left Dr. [facility] Office) old dressing removed, dressing has pink drainage on sponge dressings. wound irrigated with ns, surrounding skin cleansed with soap and water, surrounding skin intact, non irritated. Wound bed beefy red with muscle and tendon exposed. tendon in distal area of incision has a sl yellowing noted. Wound measurements as follows: Length 26 cm Width 4.3 cm depth 1.5 cm Wound is located on inner aspect of left arm. extends from wrist area towards antecubital area. adaptic applied to wound bed to protect muscle and tendon. black granulofoam applied to wound bed. coved with occlussive KCI dressing. wound vac connected 125 cm continuous suction, low intensity. excellent seal obtained. Patient tolerated procedure well. 939 Released ambulatory.
[2024-05-26 09:49] VITALS: BP 137/70; PULSE 66; TEMP 36.2; O2SAT 99
[2024-05-26] MEDS: CEFTRIAXONE 2,000 MG in 0.9 % SODIUM CHLORIDE 100 ML 200 MG IV (10:01)
[2024-05-27 09:35] VITALS: BP 131/73; PULSE 70; TEMP 36.2; O2SAT 100
[2024-05-27] MEDS: CEFTRIAXONE 2,000 MG in 0.9 % SODIUM CHLORIDE 100 ML 100 MG IV (09:51)
--- NOTE | 2024-05-27 10:11 | PC.NURSE ---
09 Arrival ambulatory. Alert oriented. PICC rt upper arm, dressing clean dry and intact stat lock present. site cleansed with chg sponge. 4cm external catheter noted. Excellent blood return noted, flushes easily. IV antibiotic given as ordered. See 949 left lower arm has wound vac applied old dressing removed, dressing has pink drainage on sponge dressings. wound irrigated with ns, surrounding skin cleansed with soap and water, surrounding skin intact, non irritated. Wound bed beefy red with muscle and tendon exposed. tendon in distal area of incision has a sl yellowing noted. Wound measurements as follows: Length 25.5 cm Width 3.8 cm depth 1.5 cm Wound is located on inner aspect of left arm. extends from wrist area towards antecubital area. adaptic applied to wound bed to protect muscle and tendon. black granulofoam applied to wound bed. coved with occlussive KCI dressing. wound vac connected 125 cm continuous suction, low intensity. excellent seal obtained. Patient tolerated procedure well. currently receiving iv antibiotics.
[2024-05-28] MEDS: CEFTRIAXONE 2,000 MG in 0.9 % SODIUM CHLORIDE 100 ML 200 MG IV (10:08)
[2024-05-28 10:10] VITALS: BP 128/69; PULSE 65; TEMP 36.4; O2SAT 99
--- NOTE | 2024-05-28 10:38 | PC.NURSE ---
1030: IV antibiotic infusion completed. PICC to right inner aspect of upper arm flushed per protocol after a vigorous scrub of the hub. Alcohol-impregnated cap applied. Pt. tolerated well. Wound vac to left inner forearm remains intact. Discharged ambulatory to private vehicle. No distress noted.
[2024-05-29] MEDS: CEFTRIAXONE 2,000 MG in 0.9 % SODIUM CHLORIDE 100 ML 200 MG IV (10:38)
[2024-05-29 10:40] VITALS: BP 129/81; PULSE 64; TEMP 36.1; O2SAT 97
--- NOTE | 2024-05-29 10:45 | PC.NURSE ---
0940 Arrival ambulatory. Alert oriented. Pt dislodged PICC at home 05/28/25, came to ER for PICC removal-see ER report. Peripheral IV started in rt forearm-see documentation. IV antibiotic given as ordered. See 949 left lower arm has wound vac applied old dressing removed, dressing has pink drainage on sponge dressings. wound irrigated with ns, surrounding skin cleansed with soap and water, surrounding skin intact, non irritated. Wound bed beefy red with muscle and tendon exposed. tendon in distal area of incision has a sl yellowing noted. Wound measurements as follows: Length 23.4 cm Width 3.6 cm depth 1.5 cm Wound is located on inner aspect of left arm. extends from wrist area towards antecubital area. adaptic applied to wound bed to protect muscle and tendon. black granulofoam applied to wound bed. coved with occlussive KCI dressing. wound vac connected 125 cm continuous suction, low intensity. excellent seal obtained. Patient tolerated procedure well. currently receiving iv antibiotics.
[2024-05-30 09:45] VITALS: BP 121/48; PULSE 76; TEMP 36.5; O2SAT 98
[2024-05-30] MEDS: CEFTRIAXONE 2,000 MG in 0.9 % SODIUM CHLORIDE 100 ML 200 MG IV (09:55)
[2024-05-31 09:58] VITALS: BP 133/68; PULSE 69; TEMP 36.6; O2SAT 98
[2024-05-31] MEDS: CEFTRIAXONE 2,000 MG in 0.9 % SODIUM CHLORIDE 100 ML 200 MG IV (10:01)
[2024-05-31 10:59] VITALS: BP 114/72; PULSE 71; TEMP 36.6; O2SAT 97
[2024-06-01] MEDS: CEFTRIAXONE 2,000 MG in 0.9 % SODIUM CHLORIDE 100 ML 200 MG IV (09:39)
[2024-06-01 09:42] VITALS: BP 135/72; PULSE 77; TEMP 36; O2SAT 98
--- NOTE | 2024-06-01 10:16 | PC.NURSE ---
0945 Arrival ambulatory, alert oriented. IV site intact rt inner upper forearm, good blood return, flushes well. IV rocephin as ordered. VS obtained. Wound left inner aspect of arm extending from wrist area towards antecubital. Came from ortho appt, wrapped with baltazar wrap, 4x4 towound, bed, removed old dressing, wound bed beefy red. noted tendon near wrist yellowish, irrigated wound with ns, skin surrounding wound cleansed with soap and water, dried, skin prep applied. notes skin around wound reddened/irritated, patient denies pain, but does complain of some itching, skin prep applied to around wound. wound windowed with wound vac dressing, adaptic applied to wound bed over tendon and muscle. black granulofoam applied to wound bed, coveeded with occlusive kci dressing, and connected to vac at 125 cm continuous suction, excellent seal obtained. Suction cannister changed. Wound measurements: Length 23.5 cm width 3 cm D 0.5 cm deep
[2024-06-02] MEDS: CEFTRIAXONE 2,000 MG in 0.9 % SODIUM CHLORIDE 100 ML 200 MG IV (09:56)
[2024-06-02 10:14] VITALS: BP 119/76; PULSE 76; TEMP 36.4; O2SAT 99
--- NOTE | 2024-06-03 11:29 | PC.NURSE ---
0945 Arrival ambulatory, alert oriented.. VS obtained. Wound left inner aspect of arm extending from wrist area towards antecubital. bed, removed old vacdressing, wound bed beefy red. noted tendon near wrist yellowish, irrigated wound with ns, skin surrounding wound cleansed with soap and water, dried, skin prep applied. notes skin around wound reddened/irritated, but better than on friday 06/01, patient denies pain, but does complain of some itching, nystatin powder applied around wound and dabbed with skin prep to make paste, allowed to dry, . wound windowed with wound vac dressing, adaptic applied to wound bed over tendon and muscle. black granulofoam applied to wound bed, covered with occlusive kci dressing, and connected to vac at 125 cm continuous suction, excellent seal obtained. Wound measurements: Length 23.5 cm width 3 cm D 1.2 cm deep tolerated well. Released ambulatory
[2024-06-03] MEDS: NYSTATIN 15 GM POWDER 1 APPLIC TOPICAL (11:51)
== END 2024-06-04 23:59 | disposition home or self-care (01) ==
LOC: HEMC 09:30
PROVIDERS: PCP Family Medicine; Visit Provider Family Medicine
DX: L03.90 Cellulitis, unspecified (principal)
CPT/HCPCS: 94761; 96365; 97606; J0696

== ENCOUNTER 2024-07-03 09:28 | Outpatient (RCR) | payer OTHER, SELFPAY ==
[2024-06-05 09:00] VITALS: BP 117/67; PULSE 71; TEMP 36.4; O2SAT 98
--- NOTE | 2024-06-05 14:53 | PC.NURSE ---
0930 arrival ambulatory, alert, oriented, wound vac intact to left inner lower arm from wrist area towards antecubital area. Old vac dressing removed, noted slight odor when removing vac dressing, wound irrigated with ns, surrounding skin intact, much less reddnes and irritation, patient denies any itching since starting topical nystatin treatment. surrounding skin cleansed with soap and water, dried, skin prep applied, nystatin sprinkled to reddness around wound, dabbed with skin prep allowed to dry. wound bed beefy red, with tendon exposed in distal wound, tendon sl yellowish in color. adaptic applied to wound, black foam applied to wound bed, covered with biocclussive dressing, connected to wound vac at 125 cm continuous suction. patient tolerated well. Wound measurements: Length 23.5 cm Width 3.5 cm Depth 1 cm.
[2024-06-10 10:18] VITALS: BP 121/74; PULSE 66; TEMP 36.5; O2SAT 99
--- NOTE | 2024-06-10 10:19 | PC.NURSE ---
0945 arrival ambulatory, alert, oriented, wound vac intact to left inner lower arm from wrist area towards antecubital area. Old vac dressing removed, noted slight odor when removing vac dressing, wound irrigated with ns, surrounding skin intact, much less reddnes and irritation, patient denies any itching since starting topical nystatin treatment. surrounding skin cleansed with soap and water, dried, skin prep applied, nystatin sprinkled to reddness around wound, dabbed with skin prep allowed to dry. wound bed beefy red, with tendon exposed in distal wound, tendon sl yellowish in color. adaptic applied to wound, black foam applied to wound bed, covered with biocclussive dressing, connected to wound vac at 125 cm continuous suction, good seal obtained. patient tolerated well. Wound measurements: Length 23.4 cm Width 3.0 cm Depth 1 cm. 1015 released ambulatory
[2024-06-12 10:35] VITALS: BP 120/69; PULSE 60; TEMP 36.6
[2024-06-15 09:45] VITALS: BP 99/61; PULSE 68; TEMP 36.7; O2SAT 96
--- NOTE | 2024-06-15 10:45 | PC.NURSE ---
0945: Pt. to [facility] amb. for dressing change. Seated in recliner. Wound vac intact to left inner forearm from wrist to AC. Dressing removed. Slight foul odor noted. Photo obtained and uploaded into chart. Skin around wound cleansed with soap and water. Wound bed beefy red with exposed tendon toward distal portion of arm near wrist. Tendon pale white/cream colored.Wound irrigated with 0.9% NS. Dried. Nystatin powder applied to faint red rash areas around wound. Skin prep applied. Pt. denies c/o pain or itching. Wound measurements: L- 23cm, W- 3.2cm and depth 3/4cm. Adaptic dressing place in wound bed. Black foam applied over adaptic and covered with clear bio-occlusive dressing. Small hole cut in bio-occlusive dressing, and wound vac applied over top. Vac to 125cm cont. suction. No air leak noted. Pt. tolerated without c/o. VSS. 1030: Pt. without c/o or needs. Given empty vac. container per pt request. D/c'd amb. to home.
[2024-06-17 09:45] VITALS: BP 103/70; PULSE 77; TEMP 36.6; O2SAT 98
--- NOTE | 2024-06-17 10:28 | PC.NURSE ---
0945: Pt. to [facility] amb. for dressing change. Seated in recliner. Wound vac intact to left inner forearm from wrist to AC. Dressing removed. Slight foul odor noted. Photo obtained and uploaded into chart. Skin around wound cleansed with soap and water. Wound bed beefy red with exposed tendon toward distal portion of arm near wrist. Tendon pale white/cream colored.Wound irrigated with 0.9% NS. Dried. Nystatin powder applied to faint red rash areas around wound. Skin prep applied. Pt. denies c/o pain or itching. Wound measurements: L- 23.5cm, W- 3cm and depth 3/4cm. Adaptic dressing place in wound bed. Black foam applied over adaptic and covered with clear bio-occlusive dressing. Small hole cut in bio-occlusive dressing, and wound vac applied over top. Vac to 125cm cont. suction. No air leak noted. Pt. tolerated without c/o. VSS. 1012: Pt. without c/o or needs. Given empty vac. container per pt request. D/c'd amb. to home.
[2024-06-19 10:28] VITALS: BP 116/77; PULSE 82; TEMP 36.3; O2SAT 98
--- NOTE | 2024-06-19 10:29 | PC.NURSE ---
0945: Pt. to [facility] amb. for dressing change. Seated in recliner. Wound vac intact to left inner forearm from wrist to AC. Dressing removed. Slight foul odor noted. Photo obtained and uploaded into chart. Skin around wound cleansed with soap and water. Wound bed beefy red with exposed tendon toward distal portion of arm near wrist. Tendon pale white/cream colored.Wound irrigated with 0.9% NS. Dried. Nystatin powder applied to faint red rash areas around wound. Skin prep applied. Pt. denies c/o pain or itching. Adaptic dressing place in wound bed. Black foam applied over adaptic and covered with clear bio-occlusive dressing. Small hole cut in bio-occlusive dressing, and wound vac applied over top. Vac to 125cm cont. suction. No air leak noted. Pt. tolerated without c/o. VSS. 1010: Pt. without c/o or needs. D/c'd amb. to home. Wound measurements: L- 23cm, W- 2cm and depth .5cm total wound area 23sq cm
[2024-06-24 09:53] VITALS: BP 121/72; PULSE 77; TEMP 36.6; O2SAT 99
--- NOTE | 2024-06-24 09:55 | PC.NURSE ---
0940: Pt. to [facility] amb. for dressing change. Seated in recliner. Wound vac intact to left inner forearm from wrist to AC. Dressing removed. Slight foul odor noted. Photo obtained and uploaded into chart. Skin around wound cleansed with soap and water. Wound bed beefy red with exposed tendon toward distal portion of arm near wrist. Tendon pale white/cream colored.Wound irrigated with 0.9% NS. Dried. Nystatin powder applied to faint red rash areas around wound. Skin prep applied. Pt. denies c/o pain or itching. Adaptic dressing place in wound bed. Black foam applied over adaptic and covered with clear bio-occlusive dressing. Small hole cut in bio-occlusive dressing, and wound vac applied over top. Vac to 125cm cont. suction. No air leak noted. Pt. tolerated without c/o. VSS. 1010: Pt. without c/o or needs. D/c'd amb. to home. Wound measurements: L- 21cm, W- 2.25 cm and depth .5cm total wound area 23.625sq cm
[2024-06-26 09:49] VITALS: BP 103/64; PULSE 74; TEMP 36.9; O2SAT 98
--- NOTE | 2024-06-26 09:51 | PC.NURSE ---
0935 Pt. to [facility] amb. for dressing change. Seated in recliner. Wound vac intact to left inner forearm from wrist to AC. Dressing removed. Slight foul odor noted. Photo obtained and uploaded into chart. Skin around wound cleansed with soap and water. Wound bed beefy red with exposed tendon toward distal portion of arm near wrist. Tendon pale white/cream colored.Wound irrigated with 0.9% NS. Dried. Nystatin powder applied to faint red rash areas around wound. Skin prep applied. Pt. denies c/o pain or itching. Adaptic dressing place in wound bed. Black foam applied over adaptic and covered with clear bio-occlusive dressing. Small hole cut in bio-occlusive dressing, and wound vac applied over top. Vac to 125cm cont. suction. No air leak noted. Pt. tolerated without c/o. VSS. 0950: Pt. without c/o or needs. D/c'd amb. to home. Wound measurements: L- 22cm, W- 1.25 cm and depth .25cm total wound area 6.875sq cm
[2024-06-29 10:46] VITALS: BP 128/73; PULSE 65; TEMP 36.4; O2SAT 97
--- NOTE | 2024-06-29 10:47 | PC.NURSE ---
0935 Pt. to [facility] amb. for dressing change. Seated in recliner. Wound vac intact to left inner forearm from wrist to AC. Dressing removed. Slight foul odor noted. Photo obtained and uploaded into chart. Skin around wound cleansed with soap and water. Wound bed beefy red with exposed tendon toward distal portion of arm near wrist. Tendon near wrist is no longer exposed. Wound irrigated with 0.9% NS. Dried. Nystatin powder applied to faint red rash areas around wound. Skin prep applied. Pt. denies c/o pain or itching. Black foam applied over adaptic and covered with clear bio-occlusive dressing. Small hole cut in bio-occlusive dressing, and wound vac applied over top. Vac to 125cm cont. suction. No air leak noted. Pt. tolerated without c/o. VSS. 0950: Pt. without c/o or needs. D/c'd amb. to home. appears approx 1/3 distance from wrist wound has healed accross, making 2 smaller open areas Measurements as below lower wound length 5.0 cm width 0.5 cm depth 0.2 cm 1.5 sq cm upper wound length 14.5 cm width 1 cm depth 0.2 cm 2.9 sq cm 4.4 sq cm total wound measurement
[2024-07-01 12:34] VITALS: BP 108/68; PULSE 69; TEMP 36.2; O2SAT 95
--- NOTE | 2024-07-01 12:36 | PC.NURSE ---
0930 Pt. to [facility] amb. for dressing change. Seated in recliner. Wound vac intact to left inner forearm from wrist to AC. Dressing removed. Slight foul odor noted. Photo obtained and uploaded into chart. Skin around wound cleansed with soap and water. Wound bed beefy red with exposed tendon toward distal portion of arm near wrist. Tendon near wrist is no longer exposed. Wound irrigated with 0.9% NS. Dried. Nystatin powder applied to faint red rash areas around wound. Skin prep applied. Pt. denies c/o pain or itching. Black foam applied over adaptic and covered with clear bio-occlusive dressing. Small hole cut in bio-occlusive dressing, and wound vac applied over top. Vac to 125cm cont. suction. No air leak noted. Pt. tolerated without c/o. VSS. 0950: Pt. without c/o or needs. D/c'd amb. to home. appears approx 1/3 distance from wrist wound has healed accross, making 2 smaller open areas Measurements as below lower wound length 5.0 cm width 0.5 cm depth 0.2 cm upper wound length 13 cm width 1 cm depth 0.2 cm
--- NOTE | 2024-07-03 10:20 | PC.NURSE ---
0940: Pt. to [facility] amb. for dressing change. Seated in recliner. Wound vac intact to left inner forearm from wrist to AC. Dressing removed. Slight foul odor noted. Photo obtained and uploaded into chart. Skin around wound cleansed with soap and water. Wound bed beefy red with exposed tendon toward distal portion of arm near wrist. Tendon near wrist is no longer exposed. Wound irrigated with 0.9% NS. Dried. Nystatin powder applied to faint red rash areas around wound. Skin prep applied. Pt. denies c/o pain or itching. Black foam applied over adaptic and covered with clear bio-occlusive dressing. Small hole cut in bio-occlusive dressing, and wound vac applied over top. Vac to 125cm cont. suction. No air leak noted. Pt. tolerated without c/o. VSS. 1018: Approximately 1/3 distance from wrist wound has healed over, making 2 smaller open areas. Measurements as below. Pt. without c/o or needs. D/c'd amb. to home. lower wound length 5.0 cm width 0.5 cm depth 0.2 cm upper wound length 12 cm width 1 cm depth 0.2 cm
== END 2024-07-04 23:59 | disposition home or self-care (01) ==
LOC: INF 09:28
PROVIDERS: PCP Family Medicine; Visit Provider Orthopaedic Surgery
DX: L03.90 Cellulitis, unspecified (principal)
CPT/HCPCS: 97605; 97606

== ENCOUNTER 2024-07-13 07:31 | Outpatient (RCR) | payer OTHER, MEDICARE, SELFPAY ==
[2024-07-06 09:31] VITALS: BP 128/76; PULSE 61; TEMP 36.3; O2SAT 98
--- NOTE | 2024-07-06 09:33 | PC.NURSE ---
0930 Arrival ambulatory. wound vac Dressing removed from lower left inner arm. noted odor when removing, small amount of mucopurulent drainage noted. small amount noted in cannister dark bloody appearance. wound irrigated with normal salaine. wound bed beefy red, skin surrounding wound sl reddened complains of itching skin surrounding wound cleansed with soap and water, dried, skin prep and nystatin powder applied made nystatin paste. surrounding wound coverd with drape. wound healed approx 2 inches up from wrist, forming bridge of healed skin. drape applied to skin surrounding wound, adaptic applied to wound bed, which beefy red. black foam applied to both open areas, bridged together over healed skin, connected vac at 125 cm suction, excellent seal attained. tolerated well. Released ambulatory Wound measurements: distal wound Length 6 cm x width 1 cm, x 0.2 cm depth proximal wound: Length 12.5 cm x 2.5 cm width, x 0.2 cm deep
[2024-07-08 09:55] VITALS: BP 122/73; PULSE 62; TEMP 36.3; O2SAT 100
--- NOTE | 2024-07-08 12:36 | PC.NURSE ---
0950: Pt. to [facility] amb. for dressing change. Wound vac dressing removed from lower left inner arm. Foul odor noted when removing dressing. No drainage observed in canister. Wound irrigated with normal salaine. Wound bed beefy red, skin surrounding wound sl reddened complains of itching skin surrounding wound cleansed with soap and water, dried, skin prep and nystatin powder applied made nystatin paste. Edges of surrounding wound coverd with occlusive dressing. Wound healed approx 2 inches up from wrist, forming bridge of healed skin. Occlusive applied to skin surrounding wound, adaptic applied to wound bed. Black foam applied to both open areas, bridged together over healed skin, connected vac at 125 cm suction, excellent seal Obtained. Patient tolerated with no c/o. Wound measurements: distal wound Length 6 cm x width 1 cm, x 0.2 cm depth proximal wound: Length 12.5 cm x 2.5 cm width, x 0.2 cm deep 1020: Pt. d/c'd amb. to home.
[2024-07-10 09:50] VITALS: BP 126/70; PULSE 70; TEMP 36.9; O2SAT 99
--- NOTE | 2024-07-10 11:23 | PC.NURSE ---
0950 Arrival ambulatory vac dressing removed from left lower inner arm. noted sl foul odor when removing dressing. very scant amount of exuadate. suction cannister very small amount. wound irrigated with normal saline. cleansed surrounding skin with soap and water, dried. surrounding skin intact. skin prep applied to surrounding skin. photo obtained and uploaded to chart (see photo with measurement grid). wound healing very well. noted area distal open area measures 3.2cm long, 0.4 cm wide and 0.1 cm deep. area above this are mostly healed in with small open areas scattered along 12.5 cm length of old wound. covered healed areas with drape, black foam applied over wound, connected to wound vac at 125 cm suction, excellent seal obtained. Patient tolerated well. Released ambulatory
== END 2024-07-13 13:00 | disposition home or self-care (01) ==
LOC: INF 07:31
PROVIDERS: PCP Family Medicine; Visit Provider Orthopaedic Surgery
DX: L03.90 Cellulitis, unspecified (principal)
CPT/HCPCS: 97605

== ENCOUNTER 2024-07-13 12:03 | Outpatient (OUT) | payer MEDICARE, SELFPAY ==
[2024-07-13 12:28] LABS: Estimated Average Glucose 212 mg/dL
== END 2024-07-13 12:04 | disposition home or self-care (01) ==
LOC: LAB 12:05
PROVIDERS: PCP Family Medicine; Visit Provider Family Medicine
DX: E11.65 Type 2 diabetes mellitus with hyperglycemia (principal)
CPT/HCPCS: 36415; 83036

== ENCOUNTER 2025-01-23 07:58 | Outpatient (OUT) | payer MEDICARE, SELFPAY ==
--- OUTSIDE RECORDS SUMMARY | 2025-01-23 08:01 | XMS_ITS | CCD ---
Author Organization [facility] Care Team Providers Care Vice President Of Nursing Name Role Phone MEGAN MATIAS Unavailable Unavailable NADEREHARRIS Vera Unavailable Unavailkam e MEGAN MATIAS Unavailable Unavailable [...] NADERER, DR HARRIS Esteves Admitting Unavailable EBENIvanna ZAPATA Attending Unavailable EBEN, LAWRENCE Morgan Admitting Unavailable Gabe DUPONT Attending Unavailable EBEN, Ivanna Morgan Attending Unavailable NadHarris santizo MD Primary Care Provider MERRITT, HARRIS Attending Unavailable NADERER, HARRIS Attending Unavailable NADERER, HARRIS Attending Unavailable NADERER, HARRIS Attending Unavailable NADERER, HARRIS Attending Unavailable NadHarris santizo MD Primary Care Provider Harris Bang MD Primary Care Provider Allergies Allergy Classification Reported Allergen(s) Allergy Type Date of Onset Reaction(s) Facility (1 source) Angiotensin Converting Enzyme (Latrell) Inhibitors Drug allergy (disorder) 6 [facility] Repository (16 sources) Angiotensin-conv erting enzyme inhibitor agent Propensity to adverse reactions 4 [facility] Medications Current Medications Medication Drug Class(es) Dates Sig (Normalized) Sig (Original) amLODIPine 5 mg oral tablet (16 sources) Dihydropyridine Calcium Channel Susanna Start: 10-30-2023 End: 06-12-2025 take 1 tablet by mouth once daily amLODIPine (Norvasc) 5 MG tablet Indications: Essential hypertension, benign (CMS/HCC) Take 1 tablet (5 mg) by mouth Daily 30 tablet 11 06/12/2024 06/12/2025 Active atorvastatin 40 mg oral tablet (17 sources) HMG-CoA Reductase Inhibitor Start: 10-16-2023 End: 03-31-2024 take 1 tablet by mouth at bedtime atorvastatin (Lipitor) 40 MG tablet Indications: Dyslipidemia (CMS/HCC) Take 1 tablet (40 mg) by mouth at bedtime 30 tablet 5 03/31/2024 Active Blood Glucose Monitoring Suppl (Blood Glucose Monitor System) w/Device kit (17 sources) Start: 03-31-2024 Blood Glucose Monitoring Suppl (Blood Glucose Monitor System) w/Device kit Indications: Type 2 diabetes mellitus with hyperglycemia, without long-term current use of insulin (CMS/HCC) 1 each Daily 1 kit 03/31/2024 Active Start: 03-19-2024 End: 03-31-[address] (Blood Glucose Monitor System) w/Device kit Indications: Type 2 diabetes mellitus with hyperglycemia, without long-term current use of insulin ([facility]) 1 each Daily 1 kit 03/19/2024 03/31/2024 Discontinued (Reorder) cholecalciferol 0.025 mg oral tablet (16 sources) Vitamin D Start: 12-31-2023 End: 12-30-2024 take 2 tablets by mouth once daily cholecalciferol (Vitamin D3) 25 MCG (1000 UT) tablet Indications: Vitamin D deficiency Take 2 tablets (50 mcg) by mouth Daily 60 tablet 5 12/31/2023 12/30/2024 Active citalopram 40 mg oral tablet (20 sources) Serotonin Reuptake Inhibitor Start: 01-16-2020 End: 05-29-2024 take 1 tablet by mouth once daily citalopram (CeleXA) 40 mg tablet Take 40 mg by mouth daily. 01/16/2020 Active DULoxetine 60 mg delayed release oral capsule (3 sources) Serotonin and Norepinephrine Reuptake Inhibitor DULoxetine (CYMBALTA) 60 mg capsule Take 60 mg by mouth. Active empagliflozin 25 mg oral tablet (16 sources) Sodium-Glucose Cotransporter 2 Inhibitor Start: 09-24-2024 take 1 tablet by mouth once daily empagliflozin (Jardiance) 25 MG Indications: Type 2 diabetes mellitus with hyperglycemia, without long-term current use of insulin (CMS/HCC) Take 1 tablet (25 mg) by mouth Daily 90 tablet 3 04/28/2024 Active Start: 01-01-2024 take 1 tablet by chay th once daily empagliflozin (Jardiance) 25 MG Indications: Type 2 diabetes mellitus with hyperglycemia, without long-term current use of insulin (CMS/HCC) Take 1 tablet (25 mg) by mouth Daily 90 tablet 3 01/01/2024 Active glipiZIDE 10 mg oral tablet (19 sources) Sulfonylurea Start: 01-15-2024 take 2 tablets by mouth twice daily glipiZIDE (Glucotrol) 10 MG tablet Indications: Type 2 diabetes mellitus with hyperglycemia, without long-term current use of insulin (CMS/HCC) Take 2 (two) Tablet by mouth two times daily 120 tablet 3 01/15/2024 Active Start: 12-13-2019 take 1 tablet by chay th twice daily glipiZIDE (GLUCOTROL) 10 mg tablet Take 10 mg by mouth 2 (two) times a day. 12/13/2019 Active hydroCHLOROthiazide 25 mg oral tablet (19 sources) Thiazide Diuretic Start: 12-14-2019 End: 04-28-2025 take 1 tablet by mouth once daily hydroCHLOROthiazide (HYDRODIURIL) 25 mg tablet Take 25 mg by mouth daily. 12/14/2019 Active hydroCHLOROthiazide 25 mg / losartan potassium 100 mg oral tablet (3 sources) Thiazide Diuretic, Angiotensin 2 Receptor Susanna take 1 tablet by mouth once losartan-hydroCHLOROthi azide (HYZAAR) 100-25 mg per tablet Take 1 tablet by mouth. Active lamoTRIgine 150 mg oral tablet (19 sources) Mood Stabilizer, Anti-epileptic Agent Start: 08-10-2024 take 1 tablet by mouth once daily lamoTRIgine (LaMICtal) 150 MG tablet Indications: Moderate recurrent major depression (CMS/HCC) Take 1 tablet (150 mg) by mouth Daily 30 tablet 5 08/10/2024 Active Start: 10-16-2023 take 1 tablet by chay th once daily lamoTRIgine (LaMICtal) 150 MG tablet Indications: Moderate recurrent major depression (CMS/HCC) Take 1 tablet (150 mg) by mouth Daily 30 tablet 5 10/16/2023 Active Start: 12-13-2019 take 2 tablets by mo uth once daily lamoTRIgine (LaMICtal) 25 mg tablet Take 50 mg by mouth nightly. 12/13/2019 Active losartan potassium 100 mg oral tablet (16 sources) Angiotensin 2 Receptor Susanna Start: 12-11-2023 End: 12-10-2024 take 1 tablet by mouth once daily losartan (Cozaar) 100 MG tablet Indications: Essential hypertension, benign (CMS/HCC) Take 1 tablet (100 mg) by mouth Daily 30 tablet 5 12/11/2023 12/10/2024 Active meloxicam 15 mg oral tablet (19 sources) Nonsteroidal Anti-inflammatory Drug Start: 06-12-2024 take 1 tablet by mouth once daily meloxicam (Mobic) 15 MG tablet Indications: Generalized osteoarthrosis, involving multiple sites Take 1 tablet (15 mg) by mouth Daily 90 tablet 3 06/12/2024 Active Start: 01-01-2024 take 1 tablet by chay th once daily meloxicam (Mobic) 15 MG tablet Indications: Generalized osteoarthrosis, involving multiple sites Take 1 tablet (15 mg) by mouth Daily 90 tablet 3 01/01/2024 Active Start: 01-22-2020 take 1 tablet by chay th once daily meloxicam (MOBIC) 7.5 mg tablet Take 7.5 mg by mouth daily. 01/22/2020 Active metFORMIN hydrochloride 1000 mg oral tablet (19 sources) Biguanide Start: 12-13-2019 End: 01-15-2025 take 1 tablet by mouth twice daily metFORMIN (GLUCOPHAGE) 1000 mg tablet Take 1,000 mg by mouth 2 (two) times a day. 12/13/2019 Active pantoprazole 20 mg delayed release oral tablet (19 sources) Proton Pump Inhibitor pantoprazole (PROTONIX) 20 mg EC tablet Take 20 mg by mouth. Active take 1 tablet by mouth before me altime pantoprazole (ProtoNix) 40 MG EC tablet Take 40 mg by mouth in the morning. Take before meals. Do not crush, chew, or split.. Active pioglitazone 45 mg oral tablet (19 sources) Peroxisome Proliferator Receptor alpha Agonist, Peroxisome Proliferator Receptor gamma Agonist, Thiazolidinedione Start: 04-28-2024 End: 04-28-2025 take 1 tablet by mouth once daily pioglitazone (Actos) 45 MG tablet Indications: Type 2 diabetes mellitus with hyperglycemia, without long-term current use of insulin (CMS/HCC) Take 1 tablet (45 mg) by mouth Daily 90 tablet 3 04/28/2024 04/28/2025 Active polyethylene glycol 3350 71848 mg powder for oral solution (3 sources) Osmotic Laxative Start: 12-23-2019 take 17 g by mouth once daily LAXATIVE PEG 3350 17 gram/dose powder Take 17 g by mouth daily. Dissolve powder in water 12/23/2019 Active primidone 50 mg oral tablet (17 sources) Anti-epileptic Agent Start: 01-15-2024 End: 05-29-2024 take 2 tablets by mouth at bedtime primidone (Mysoline) 50 MG tablet Indications: Type 2 diabetes mellitus with hyperglycemia, without long-term current use of insulin (CMS/HCC) Take 2 tablets (100 mg) by mouth at bedtime 180 tablet 3 05/29/2024 Active venlafaxine 100 mg oral tablet (19 sources) Serotonin and Norepinephrine Reuptake Inhibitor Start: 01-01-2024 take 1 tablet by mouth in the [...] before bedtime. 90 tablet 5 01/01/2024 Active Start: 12-13-2019 take 1 tablet by chay twice daily venlafaxine (EFFEXOR) 75 mg tablet Take 75 mg by mouth 2 (two) times a day. 12/13/2019 Active zolpidem tartrate 10 mg oral tablet (3 sources) gamma-Aminobutyric Acid-ergic Agonist Start: 11-19-2019 take 1 tablet by mouth once daily zolpidem (AMBIEN) 10 mg tablet Take 10 mg by mouth nightly. 11/19/2019 Active Problems Active Problems Problem Classification Problem Date Documented Date Episodic/Chronic Anxiety disorders (20 sources) Generalized anxiety disorder; Translations: [Generalized anxiety disorder] Onset: 10-16-2023 Resolved: 10-16-2023 10-16-2023 Chronic Diabetes mellitus with complications (20 sources) Type 2 diabetes mellitus with hyperglycemia; Translations: [Hyperglycemia due to type 2 diabetes mellitus] Onset: 04-22-2022 Chronic Disorders of lipid metabolism (17 sources) Dyslipidemia; Translations: [Hyperlipidemia, unspecified] Onset: 10-16-2023 10-16-2023 Chronic Esophageal disorders (16 sources) Gastroesophageal reflux disease; Translations: [Gastro-esophageal reflux disease without esophagitis] Onset: 10-16-2023 10-16-2023 Chronic Essential hypertension (20 sources) Benign essential hypertension; Translations: [Essential (primary) hypertension] Onset: 10-16-2023 10-16-2023 Chronic Immunity disorders (2 sources) Secondary immune deficiency disorder; Translations: [Immunodeficiency due to conditions classified elsewhere ([facility])] 05-26-2024 Chronic Miscellaneous mental health disorders (16 sources) Primary insomnia; Translations: [Primary insomnia] Onset: 10-16-2023 10-16-2023 Chronic Mood disorders (18 sources) Moderate recurrent major depression; Translations: [Major depressive disorder, recurrent, moderate] Onset: 10-16-2023 10-16-2023 Chronic Nutritional deficiencies (17 sources) Vitamin D deficiency, unspecified; Translations: [Vitamin D deficiency] Onset: 04-22-2022 10-16-2023 Chronic Osteoarthritis (16 sources) Degenerative joint disease involving multiple joints; Translations: [Polyosteoarthritis, unspecified] Onset: 10-16-2023 10-16-2023 Chronic Other hereditary and degenerative nervous system conditions (18 sources) Essential tremor; Translations: [Essential tremor] Onset: 10-16-2023 10-16-2023 Chronic Other nutritional; endocrine; and metabolic disorders (16 sources) Body mass index 30+ - obesity; Translations: [Obesity, unspecified] Onset: 10-16-2023 10-16-2023 Chronic Residual codes; unclassified (16 sources) Obstructive sleep apnea syndrome; Translations: [Obstructive sleep apnea (adult) (pediatric)] Onset: 10-16-2023 10-16-2023 Chronic Spondylosis; intervertebral disc disorders; other back problems (16 sources) Degeneration of cervical intervertebral disc; Translations: [Other cervical disc degeneration, unspecified cervical region] Onset: 10-16-2023 10-16-2023 Chronic Past or Other Problems Problem Classification Problem Date Documented Date Episodic/Chronic Medical examination/evaluatio n (2 sources) Encounter for other preprocedural examination; Translations: [Encounter for other preprocedural examination] Onset: 10-09-2017 Episodic Other aftercare (15 sources) Long-term current use of drug therapy; Translations: [Other mcc (current) drug therapy] Onset: 01-01-2024 01-01-2024 Episodic Other aftercare (1 source) Patient encounter status; Translations: [Other supervisor intermediates (current) drug therapy] Onset: 01-01-2024 01-01-2024 Episodic Other nervous system disorders (1 source) Other acute postprocedural pain; Translations: [Other acute postprocedural pain] Onset: 10-21-2017 Episodic Other non-traumatic joint disorders (16 sources) Pain in right knee; Translations: [Pain in joint, lower leg] Onset: 10-16-2023 10-16-2023 Episodic Other non-traumatic joint disorders (16 sources) Chronic pain of right upper limb; Translations: [Pain in right shoulder] Onset: 10-16-2023 10-16-2023 Episodic Other nutritional; endocrine; and metabolic disorders (16 sources) Morbid obesity; Translations: [Morbid (severe) obesity due to excess calories] Onset: 01-01-2024 Resolved: 01-01-2024 01-01-2024 Chronic Skin and subcutaneous tissue infections (19 sources) Cellulitis of left upper limb; Translations: [Cellulitis of left upper limb] Onset: 05-14-2024 Resolved: 07-14-2024 05-14-2024 Episodic Spondylosis; intervertebral disc disorders; other back problems (16 sources) Cervical radiculopathy; Translations: [Radiculopathy, cervical region] Onset: 10-16-2023 10-16-2023 Episodic Results Test Name Value Interpretation Reference Range Facility MLR HEMOGLOBIN A1Con 024 Glucose [Mass/Vol] 212 mg/dL [facility] HbA1c (Bld) [Mass fraction] 9 % High 4.5 - 6.2 % [facility] Comment on above: ADA RECOMMENDED LIMI T 4.0 - 6.0 ADA THERAPEUTIC TARGET < 7.0 ACTION SUGGESTED > 7.0 Interpretation and review of laboratory results Abnormal [facility] ACID FAST SMEARon 05-19-2024 ACID FAST SMEAR Acid Fast Smear Negative [facility] AFB SPECIMEN PROCESSINGon AFB SPECIMEN PROCESSING AFB Specimen Processing [facility] AFB SPECIMEN PROCESSING Tissue Grinding [facility] No Panel [facility] 05-[facility] ACID FAST SMEARon 05-18-2024 ACID FAST SMEAR Acid Fast Smear Negative [facility] AFB SPECIMEN PROCESSINGon AFB SPECIMEN PROCESSING AFB Specimen Processing [facility] AFB SPECIMEN PROCESSING Tissue Grinding [facility] No Panel Informationon 05-18 Comment left arm wou nd for C S, gram, aerobic anaer funga [facility] [place] 03-07-2023 Consent [id number]#1.00CD:12 7 Normal [facility] Registrationon 03-07-2023 Registration [id number]#1.00CD:12 7 [facility] [place] 12-17-2022 Consent [id number]#1.00CD:1 27 [facility] In office Testingon 12-18-19 23 In office Testing [id number]#1.00CD:12 7 [facility] In office Testing [id number]#1.00CD:12 7 [facility] Registrationon 12-17-2022 Registration [id number]#1.00CD:1 27 [facility] GLYCOHEMOGLOBIN A1Con 2022 ADA RECOMMENDATION SEE BELOW Normal [facility] Comment on above: Result Comment: ADA RECOMMENDED LIMIT 4.0 - 6.0 ADA THERAPEUTIC TARGET < 7.0 ACTION SUGGESTED > 7.0 Performed By: #### A 1C #### [facility] [address] [place] [address] Dr. Kelton Ludwig Glucose [Mass/Vol] 263 mg/dL Normal [facility] Comment on above: Performed By: #### A 1C #### [facility] [address], [place] [address] Dr. Kelton Ludwig HbA1c (Bld) [Mass fraction] 10.8 % Critically high 4.5-6.2 [facility] Comment on above: Performed By: #### A 1C #### [facility] [address] [address] [address] Kelton Ludwig [place] 06-18-2022 Consent [id number]#1.00CD:12 7 Normal [facility] In office Testingon 06-18-20 22 In office Testing [id number]#1.00CD:1 27 Normal [facility] Registrationon 06-18-2022 Registration [id number]#1.00CD:12 7 Normal [facility] MICROALBUMIN URINEon 022 Albumin, Urine 32.3 ug/mL Normal Not Estab. [facility] Comment on above: Performed By: #### M ALBLC #### [facility] [address] [address] [address] Kelton Ludwig VIT D 25-OH LABCORPon 2021 Vitamin D, 25-Hydroxy 37.9 ng/mL Normal 30.0-100.0 [facility] Comment on above: Result Comment: Hemalatha min D deficiency has been defined by the [place] [employer] and an Endocrine Society practice guideline as a level of serum 25-OH vitamin D less than 20 ng/mL (1,2). The Endocrine Society went on to further define vitamin D insufficiency as a level between 21 and 29 ng/mL (2). 1. IOM ([place] [employer]). 2010. Dietary reference intakes for calcium and D. [place]: The National Academies Press. 2. [place] ABEBE, Arturo JIANG, Dolores WAYNE, et al. Evaluation, treatment, and prevention of vitamin D deficiency: an Endocrine Society clinical practice guideline. JCEM. 2010; 96(7):1911-30. Performed By: #### V ITADLC #### [facility] [address] [place] [address] Dr. Kelton Ludwig CBC AUTO DIFFon 04-19-2022 BASO # 0.0 103/ul Normal 0.0-0.1 [facility] Comment on above: Performed By: #### C BC #### [facility] [address] [place] [address] Dr. Kelton Lduwig Basophils/100 WBC (Bld) 0.6 % Normal 0.2-2.0 [facility] Comment on above: Performed By: #### C BC #### [facility] [address] [place] [address] Dr. Kelton Ludwig EO # 0.3 103/ul Normal 0.0-0.7 [facility] Comment on above: Performed By: #### C BC #### [facility] [address] [place] [address] Dr. Kelton Ludwig Eosinophils/100 WBC (Bld) 3.5 % Normal 0.9-7.0 [facility] Comment on above: Performed By: #### C BC #### [facility] [address] [place] [address] Dr. Kelton Ludwig Erythrocyte distribution width (RBC) [Ratio] 12.6 % Normal 11.0-15.0 [facility] Comment on above: Performed By: #### C BC #### [facility] [address] [place] [address] Dr. Kelton Ludwig Hematocrit (Bld) [Volume fraction] 44.6 % Normal 42.0-54.0 [facility] Comment on above: Performed By: #### C BC #### [facility] [address] [place] [address] Dr. Kelton Ludwig Hemoglobin (Bld) [Mass/Vol] 14.1 g/dL Normal 14.0-18.0 [facility] Comment on above: Performed By: #### C BC #### [facility] [address] [place] [address] Dr. Kelton Ludwig IG # 0.03 10e3/ul Normal 0.00-0.03 [facility] Comment on above: Performed By: #### C BC #### [facility] [address] [place] [address] Dr. Kelton Ludwig IG % 0.4 % Normal 0.0-0.5 [facility] Comment on above: Performed By: #### C BC #### [facility] [address] [place] [address] Dr. Kelton Ludwig LYMPH # 1.2 103/ul Normal 1.2-3.8 [facility] Comment on above: Performed By: #### C BC #### [facility] [address] [place] [address] Dr. Kelton Ludwig Lymphocytes/100 WBC (Bld) 16.9 % Critically low 20.5-60.0 [facility] Comment on above: Performed By: #### C BC #### [facility] [address] [place] [address] Dr. Kelton Ludwig MANUAL DIFF REQ NO Normal [facility] Comment on above: Performed By: #### C BC #### [facility] [address] [place] [address] Dr. Kelton Ludwig MCH (RBC) [Entitic mass] 29.7 pg Normal 25.9-34.0 [facility] Comment on above: Performed By: #### C BC #### [facility] [address] [place] [address] Dr. Kelton Ludwig MCHC (RBC) [Mass/Vol] 31.6 g/dL Normal 29.9-35.2 [facility] Comment on above: Performed By: #### C BC #### [facility] [address] [place] [address] Dr. Kelton Ludwig MCV (RBC) [Entitic vol] 94.1 fL Critically high 80.0-94.0 [facility] Comment on above: Performed By: #### C BC #### [facility] [address] [place] [address] Dr. Kelton Ludwig MONO # 0.5 103/ul Normal 0.3-0.8 [facility] Comment on above: Performed By: #### C BC #### [facility] [address] [address] [address] Kelton Ludwig Monocytes/100 WBC (Bld) 7.3 % Normal 1.7-12.0 [facility] Comment on above: Performed By: #### C BC #### [facility] [address] [place] [address] Dr. Kelton Ludwig NEUT # 5.1 103/ul Normal 1.4-6.5 [facility] Comment on above: Performed By: #### C BC #### [facility] [address] [place] [address] Dr. Kelton Ludwig Neutrophils/100 WBC (Bld) 71.3 % Normal 43.0-75.0 [facility] Comment on above: Performed By: #### C BC #### [facility] [address] [place] [address] Dr. Kelton Ludwig Platelet mean volume (Bld) [Entitic vol] 10.3 fL Normal 9.5-13.5 [facility] Comment on above: Performed By: #### C BC #### [facility] [address] [place] [address] Dr. Kelton Ludwig PLT 221 103/ul Normal 150-450 [facility] Comment on above: Performed By: #### C BC #### [facility] [address] [place] [address] Dr. Kelton Ludwig RBC 4.74 106/ul Normal 4.70-6.10 [facility] Comment on above: Performed By: #### C BC #### [facility] [address] [place] [address] Dr. Kelton Ludwig WBC 7.1 103/ul Normal 4.0-11.0 [facility] Comment on above: Performed By: #### C BC #### [facility] [address] [place] [address] Dr. Kelton Ludwig GLYCOHEMOGLOBIN A1Con 2021 ADA RECOMMENDATION SEE BELOW Normal [facility] Comment on above: Result Comment: ADA RECOMMENDED LIMIT 4.0 - 6.0 ADA THERAPEUTIC TARGET < 7.0 ACTION SUGGESTED > 7.0 Performed By: #### A 1C #### [facility] [address] [address] [address] Kelton Ludwig Glucose [Mass/Vol] 194 mg/dL Normal [facility] Comment on above: Performed By: #### A 1C #### [facility] [address] [address] [address] Kelton Ludwig HbA1c (Bld) [Mass fraction] 8.4 % Critically high 4.5-6.2 [facility] Comment on above: Performed By: #### A 1C #### [facility] [address] [address] [address] Kelton Ludwig LIPID PROFILEon 04-19-2022 CHOL-HDL RATIO NORM SEE BELOW Normal [facility] Comment on above: Result Comment: 3.3 - 4.4 LOW RISK 4.4 - 7.1 AVERAGE RISK 7.1 - 11.0 MODERATE RISK >11.0 HIGH RISK Performed By: #### T SH, LIPID, BMP, LIVER #### [facility] [address] [address] [address] Kelton Ludwig Cholesterol [Mass/Vol] 179 mg/dL Normal <=200 [facility] Comment on above: Performed By: #### T SH, LIPID, BMP, LIVER #### [facility] [address] [address] [address] Kelton Ludwig Cholesterol in HDL [Mass/Vol] 49 mg/dL Normal 40-60 [facility] Comment on above: Performed By: #### T SH, LIPID, BMP, LIVER #### [facility] [address] [address] [address] Kelton Ludwig Cholesterol in LDL [Mass/Vol] 118.4 mg/dL Normal [facility] Comment on above: Performed By: #### T SH, LIPID, BMP, LIVER #### [facility] [address] [place] [address] Dr. Kelton Ludwig Cholesterol.total/C holesterol in HDL [Mass ratio] 3.7 {ratio} Normal [facility] Comment on above: Performed By: #### T SH, LIPID, BMP, LIVER #### [facility] [address] [address] [address] Kelton Ludwig HDL NORMAL > or = 60 mg/dl - LO W CARDIOVASCULAR RISK <40 mg/dl - HIGH CARDIOVASCULAR RISK Normal [facility] Comment on above: Performed By: #### T SH, LIPID, BMP, LIVER #### [facility] [address] [address] [address] Kelton Ludwig LDL CALC NORMAL SEE BELOW Normal [facility] Comment on above: Result Comment: <100 mg/dl OPTIMAL 100 - 129 mg/dl NEAR OR ABOVE OPTIMAL 130 - 159 mg/dl BORDERLINE HIGH 160 - 189 mg/dl HIGH >190 mg/dl VERY HIGH Performed By: #### T SH, LIPID, BMP, LIVER #### [facility] [address] [address] [address] Kelton Ludwig Triglyceride [Mass/Vol] 58 mg/dL Normal <=150 [facility] Comment on above: Performed By: #### T SH, LIPID, BMP, LIVER #### [facility] [address] [address] [address] Kelton Ludwig VLDL CALC 11.6 mg/dL Normal [facility] Comment on above: Performed By: #### T SH, LIPID, BMP, LIVER #### [facility] [address] [address] [address] Kelton Ludwig LIVER PROFILEon 04-19-2022 Albumin [Mass/Vol] 3.8 g/dL Normal 3.4-5.0 [facility] Comment on above: Performed By: #### T SH, LIPID, BMP, LIVER #### [facility] [address] [address] [address] Kelton Ludwig Albumin/Globulin [Mass ratio] 1.3 {ratio} Normal [facility] Comment on above: Performed By: #### T SH, LIPID, BMP, LIVER #### [facility] [address] [address] [address] Kelton Ludwig ALP [Catalytic activity/Vol] 51 U/L Normal 46-116 [facility] Comment on above: Performed By: #### T SH, LIPID, BMP, LIVER #### [facility] [address] [address] [address] Kelton Ludwig ALT [Catalytic activity/Vol] 18 U/L Normal 16-63 [facility] Comment on above: Performed By: #### T SH, LIPID, BMP, LIVER #### [facility] [address] [place] [address] Dr. Kelton Ludwig AST [Catalytic activity/Vol] 12 U/L Critically low 15-37 [facility] Comment on above: Performed By: #### T SH, LIPID, BMP, LIVER #### [facility] [address] [place] [address] Dr. Kelton Ludwig BILI, CONJUGATED 0.2 mg/dL Normal 0.0-0.2 [facility] Comment on above: Performed By: #### T SH, LIPID, BMP, LIVER #### [facility] [address] [place] [address] Dr. Kelton Ludwig Bilirubin [Mass/Vol] 0.6 mg/dL Normal 0.2-1.0 [facility] Comment on above: Performed By: #### T SH, LIPID, BMP, LIVER #### [facility] [address] [place] [address] Dr. Kelton Ludwig Globulin (S) [Mass/Vol] 3.0 g/dL Normal [facility] Comment on above: Performed By: #### T SH, LIPID, BMP, LIVER #### [facility] [address] [place] [address] Dr. Kelton Ludwig Protein [Mass/Vol] 6.8 g/dL Normal 6.4-8.2 [facility] Comment on above: Performed By: #### T SH, LIPID, BMP, LIVER #### [facility] [address] [place] [address] Dr. Kelton Ludwig PROF CHEM 8 (BAS METB)on Anion gap [Moles/Vol] 8.2 mmol/L Normal [facility] Comment on above: Performed By: #### T SH, LIPID, BMP, LIVER #### [facility] [address] [place] [address] Dr. Kelton Ludwig Calcium [Mass/Vol] 8.9 mg/dL Normal 8.5-10.1 [facility] Comment on above: Performed By: #### T SH, LIPID, BMP, LIVER #### [facility] [address] [address] [address] Kelton Ludwig Chloride [Moles/Vol] 104 mmol/L Normal 98-107 [facility] Comment on above: Performed By: #### T SH, LIPID, BMP, LIVER #### [facility] [address] [place] [address] Dr. Kelton Ludwig CO2 [Moles/Vol] 31.2 mmol/L Normal 21.0-32.0 [facility] Comment on above: Performed By: #### T SH, LIPID, BMP, LIVER #### [facility] [address] [place] [address] Dr. Kelton Ludwig Creatinine [Mass/Vol] 1.08 mg/dL Normal 0.70-1.30 [facility] Comment on above: Performed By: #### T SH, LIPID, BMP, LIVER #### [facility] [address] [place] [address] Dr. Kelton Ludwig EGFR-AF [facility] LUCIAN >60 Normal >=60 [facility] Comment on above: Performed By: #### T SH, LIPID, BMP, LIVER #### [facility] [address] [place] [address] Dr. Kelton Ludwig EGFR-NON AF [facility] LUCIAN >60 Normal >=60 [facility] Comment on above: Performed By: #### T SH, LIPID, BMP, LIVER #### [facility] [address] [place] [address] Dr. Kelton Ludwig Glucose [Mass/Vol] 171 mg/dL Critically high 74-106 [facility] Comment on above: Performed By: #### T SH, LIPID, BMP, LIVER #### [facility] [address] [place] [address] Dr. Kelton Ludwig Potassium [Moles/Vol] 4.4 mmol/L Normal 3.5-5.1 [facility] Comment on above: Performed By: #### T SH, LIPID, BMP, LIVER #### [facility] [address] [address] [address] Kelton Ludwig Sodium [Moles/Vol] 139 mmol/L Normal 136-145 [facility] Comment on above: Performed By: #### T SH, LIPID, BMP, LIVER #### [facility] [address] [address] [address] Kelton Ludwig Urea nitrogen [Mass/Vol] 20.0 mg/dL Critically high 7.0-18.0 [facility] Comment on above: Performed By: #### T SH, LIPID, BMP, LIVER #### [facility] [address] [address] [address] Kelton Ludwig Urea nitrogen/Creatinine [Mass ratio] 18.5 mg/mg Normal [facility] Comment on above: Performed By: #### T SH, LIPID, BMP, LIVER #### [facility] [address] [address] [address] Kelton Ludwig TSHon 04-19-2022 TSH 0.837 uIU/mL Normal 0.358-3.740 [facility] Comment on above: Performed By: #### T SH, LIPID, BMP, LIVER #### [facility] [address] [address] [address] Kelton Ludwig Progress Noteon 03-31-2018 HIM IP Note OR Staff Development Nurse Normal [facility] HIM IP Note OR Staff Development Nurse Normal [facility] Progress Noteon 01-03-2018 HIM IP Note OR Staff Development Nurse Normal [facility] Progress Noteon 12-23-2017 HIM IP Note OR Staff Development Nurse Normal [facility] Progress Noteon 12-09-2017 HIM IP Note OR Staff Development Nurse Normal [facility] Progress Noteon 12-06-2017 HIM IP Note OR Staff Development Nurse Normal [facility] Discharge Summaryon 10-23-19 18 HIM IP Note OR Staff Development Nurse Normal [facility] Plan of Careon 10-22-2017 HIM IP Note OR Staff Development Nurse Normal [facility] HIM IP Note OR Staff Development Nurse Normal [facility] Progress Noteon 10-22-2017 HIM IP Note OR Staff Development Nurse Normal [facility] HIM IP Note OR Staff Development Nurse Normal [facility] Interval History and Physion 10-21-2017 HIM IP Note OR Staff Development Nurse Normal [facility] OPERATIVE REPORTon 8 OPERATIVE REPORT [id number] [place] [address] OPERATIVE REPORTPATIENT NAME: SANTO SCOTT : 1960MED REC NO: [id number] ROOM: [address] [place] [address] NO: [id number] ADMIT DATE: 10/21/2017PROVIDER: Megan Matias, MDDATE OF [...] the disk space. We then placed our [place] pins to mobilizethe space. We gently distracted [...] awokenfrom anesthesia, and brought to recovery room.MEGAN MATIAS MDD: 10/21/2017 10:38:52 [id number]#: [id number] Doc#: [id number]: Megan Matias MD Normal [facility] Op Noteon 10-21-2017 HIM IP Note OR Staff Development Nurse [facility] Progress Noteon 10-21-2017 HIM IP Note OR Staff Development Nurse Normal [facility] HIM IP Note OR Staff Development Nurse [facility] HIM IP Note OR Staff Development Nurse [facility] XR CERVICAL SPINE 1 VWon XR CERVICAL SPINE 1 VW Radiology exam is complete. No Radiologist dictation. Please follow up with ordering provider. Final result Normal [facility] Protein mass conc EXAMINATION:1 VIEW O [...] by:GLORIA Sheldonigned by:Judy Mendez MD10/21/17inal result Normal [facility] XR CERVICAL SPINE 1 VW Radiology exam is complete. No Radiologist dictation. Please follow up with ordering provider. Final result Normal [facility] BUN + Creatinineon 8 (cont.) Normal [facility] Comment on above: Result Comment: Aver age GFR for 50-59 years old: 93 mL/min/1.73sq mChronic Kidney Disease: <60 mL/min/1.73sq mKidney failure: <15 mL/min/1.73sq meGFR calculated using average adult body mass. Additional eGFR calculator available at:[email or web address] County [facility] Center[facility] [address] [place] [address] Performed By: #### B UNCRT, GLU, LYTE ####[facility] [address] [place] [address] Creatinine mass conc 0.75 mg/dL Normal 0.70-1.20 [facility] Comment on above: Performed By: #### B UNCRT, GLU, LYTE ####[facility] [address] [place] [address] GFR, Amer >60 Normal >60 [facility] Comment on above: Performed By: #### B UNCRT, GLU, LYTE ####[facility] [address] [place] [address] GFR,non Amer >60 Normal >60 [facility] Comment on above: Performed By: #### B UNCRT, GLU, LYTE ####[facility] [address] [place] [address] Urea nitrogen mass conc 10 mg/dL Normal 6-20 [facility] Comment on above: Performed By: #### B UNCRT, GLU, LYTE ####[facility] [address] [place] [address] Staging: NOT REPORTED Normal [facility] Comment on above: Performed By: #### B UNCRT, GLU, LYTE ####[facility] [address] [place] [address] Electrolyteson 10-09-2017 Anion gap 3 molar conc 11 mmol/L Normal 9-17 [facility] Comment on above: Result Comment: [facility] [address] [place] [address] Performed By: #### B UNCRT, GLU, LYTE ####[facility] [address] [place] [address] Chloride molar conc 101 mmol/L Normal 98-107 [facility] Comment on above: Performed By: #### B UNCRT, GLU, LYTE ####[facility] [address] [place] [address] CO2 molar conc 27 mmol/L Normal 20-31 [facility] Comment on above: Performed By: #### B UNCRT, GLU, LYTE ####[facility] [address] [place] [address] Potassium molar conc 4.0 mmol/L Normal 3.7-5.3 [facility] Comment on above: Performed By: #### B UNCRT, GLU, LYTE ####[facility] [address] [place] [address] Sodium molar conc 139 mmol/L Normal 135-144 [facility] Comment on above: Performed By: #### B UNCRT, GLU, LYTE ####[facility] [place] [address] Glucoseon 10-09-2017 Glucose mass conc 149 mg/dL High 70-99 [facility] Comment on above: Result Comment: [facility] [address] [place], [place] [id number] [phone] Performed By: #### B UNCRT, GLU, LYTE ####[facility] [place] [address] History and Physicalon 10-09 HIM IP Note OR Staff Development Nurse Normal [facility] Progress Noteon 10-09-2017 HIM IP Note OR Staff Development Nurse Normal [facility] Vital Signs Date Time Vital Sign Value Performing Clinician Brittni plunkett 07-14-2024 15:10-0500 Body height 190.5 cm Harris Bang MD Work Phone: [facility] 07-14-2024 15:10-0500 Body mass index (BMI) [Ratio] 34.25 kg/m2 Harris Bang MD Work Phone: [facility] 07-14-2024 15:10-0500 Body temperature 97.11 [degF] Harris Bang MD Work Phone: [facility] 07-14-2024 15:10-0500 Body weight 124.29 kg Harris Bang MD Work Phone: [facility] 07-14-2024 15:10-0500 Diastolic blood pressure 50 mm[Hg] Harris Bang MD Work Phone: [facility] 07-14-2024 15:10-0500 Heart rate 89 /min Harris Bang MD Work Phone: [facility] 07-14-2024 15:10-0500 Respiratory rate 20 /min Harris Bang MD Work Phone: [facility] 07-14-2024 15:10-0500 SaO2% (BldA) [Mass fraction] 99 % Harris Bang MD Work Phone: [facility] 07-14-2024 15:10-0500 Systolic blood pressure 108 mm[Hg] Harris Bang MD Work Phone: [facility] 05-26-2024 11:31-0400 Body mass index (BMI) [Ratio] 33.12 kg/m2 Harris Bang MD Work Phone: [facility] 05-26-2024 11:31-0400 Body temperature 97.3 [degF] Harris Bang MD Work Phone: [facility] 05-26-2024 11:31-0400 Body weight 120.2 kg Hraris Bang MD Work Phone: [facility] 05-26-2024 11:31-0400 Diastolic blood pressure 78 mm[Hg] Harris Bang MD Work Phone: [facility] 05-26-2024 11:31-0400 Heart rate 78 /min Harris Bang MD Work Phone: [facility] 05-26-2024 11:31-0400 SaO2% (BldA) [Mass fraction] 98 % Harris Bang MD Work Phone: [facility] 05-26-2024 11:31-0400 Systolic blood pressure 146 mm[Hg] Harris Bang MD Work Phone: [facility] 05-14-2024 15:37-0400 Body height 190.5 cm Harris Bang MD Work Phone: [facility] 05-14-2024 15:37-0400 Body mass index (BMI) [Ratio] 33.5 kg/m2 Harris Bang MD Work Phone: [facility] 05-14-2024 15:37-0400 Body temperature 97.11 [degF] Harris Bang MD Work Phone: [facility] 05-14-2024 15:37-0400 Body weight 121.56 kg Harris Bang MD Work Phone: [facility] 05-14-2024 15:37-0400 Diastolic blood pressure 60 mm[Hg] Harris Bang MD Work Phone: [facility] 05-14-2024 15:37-0400 Heart rate 87 /min Harris Bang MD Work Phone: [facility] 05-14-2024 15:37-0400 Respiratory rate 18 /min Harris Bang MD Work Phone: [facility] 05-14-2024 15:37-0400 SaO2% (BldA) [Mass fraction] 98 % Harris Bang MD Work Phone: [facility] 05-14-2024 15:37-0400 Systolic blood pressure 120 mm[Hg] Harris Bang MD Work Phone: [facility] Healthcare Encounters Encounter Date Encounter Type Care Provider Facility Start: 10-06-2024 End: 10-06-2024 Telephone encounter Bella Santiago [facility] Comment on above: Attribution Outreach Start: 08-14-2024 End: 08-14-2024 Telephone encounter Camila Marionkins [facility] Start: 07-14-2024 End: 07-14-2024 ambulatory HARRIS BANG Not Available Start: 07-14-2024 End: 07-14-2024 Office outpatient visit 25 minutes Harris Bang MD Work Phone: [facility] Comment on above: Type 2 diabetes pura itus with hyperglycemia, without long-term current use of insulin (CMS/HCC) (Primary Dx); Essential hypertension, benign (CMS/HCC); Moderate recurrent major depression (CMS/HCC); Generalized anxiety disorder (CMS/HCC); Tremor, essential Start: 07-14-2024 End: 07-14-2024 Bamboo flowsheet Harris Bang MD Work Phone: [facility] Start: 07-14-2024 End: 07-14-2024 Bamboo flowsheet Harris Bang MD Work Phone: [facility] Start: 07-13-2024 End: 07-13-2024 Clinisync Result Encounter Harris Bang MD Work Phone: [facility] Unsolicited Start: 07-13-2024 End: 07-13-2024 Clinisync Result Encounter Harris Bagn MD Work Phone: [facility] Unsolicited Start: 05-29-2024 End: 05-29-2024 Orders Only Harris Bang MD Work Phone: [facility] Comment on above: Type 2 diabetes pura itus with hyperglycemia, without long-term current use of insulin ([facility]) Essential hypertensi on, benign ([facility]) Start: 05-26-2024 End: 05-26-2024 Bamboo flowsheet Harris Bang MD Work Phone: [facility] Start: 05-26-2024 End: 05-26-2024 Bamboo flowsheet Harris Bang MD Work Phone: [facility] Start: 05-26-2024 End: 05-26-2024 Transitional care manage srvc 7 day discharge Harris Bang MD Work Phone: [facility] Comment on above: Cellulitis of left a rm (Primary Dx); Essential hypertension, benign ([facility]); Type 2 diabetes mellitus with hyperglycemia, without long-term current use of insulin ([facility]); Immunodeficiency due to conditions classified elsewhere ([facility]) Start: 05-26-2024 End: 05-26-2024 ambulatory HARRIS BANG [...] minutes Harris Bang MD Work Phone: [facility] Comment on above: Cellulitis of left a rm (Primary Dx); Type 2 diabetes mellitus with hyperglycemia, without long-term current use of insulin ([facility]) Start: 05-14-2024 End: 05-17-2024 Clinisync Result Encounter Generic External Data Provider [facility] Unsolicited Start: 05-14-2024 End: 05-17-2024 Clinisync Result Encounter Generic External Data Provider [facility] Unsolicited Start: 04-29-2024 End: 04-29-2024 Telephone encounter Bella Santiago [facility] Comment on above: attribution outreach Start: 03-31-2024 End: 03-31-2024 Refill Harris Bang MD Work Phone: [facility] Comment on above: Dyslipidemia (CMS/HC C); Type 2 diabetes mellitus with hyperglycemia, without long-term current use of insulin ([facility]) Start: 01-07-2024 End: 01-07-2024 Telephone encounter Bella Santiago [facility] Comment on above: Attribution Outreach Start: 01-01-2024 End: 01-01-2024 ambulatory HARRIS BANG Not Available Start: 10-16-2023 End: 10-16-2023 ambulatory HARRIS BANG Not Available Start: 03-07-2023 End: 03-08-2023 ambulatory Gabe EDMONDWOOD [facility] Start: 12-17-2022 End: 12-18-2022 ambulatory Ivanna TREADWELL [facility] Start: 11-28-2022 End: 11-29-[address] HARRIS BANG Facility:[facility] Start: 07-10-[address] HARRIS BANG Facil ity:[facility] Start: 06-18-2022 End: 06-19-2022 ambulatory Ivanna TREADWELL [facility] Start: 04-22-2022 Encounter for genera l adult medical examination without abnormal findings DR HARRIS BANG [facility] Start: 04-19-2022 End: 04-20-[address] HARRIS BANG Facility:[facility] Start: 04-19-2022 End: 04-20-2022 Encounter for general adult medical examination without abnormal findings DR HARRIS BANG Facility:[facility] Start: 10-21-2017 End: 10-22-2017 Evaluation and management of inpatient MEGAN MATIAS [facility] Start: 10-09-2017 End: 10-14-2017 Patient encounter MEGAN MATIAS [facility] Procedures Date Procedure Procedure Detail Performing Clinician Start: 07-13-2024 MLR HEMOGLOBIN A1C Harris Bang MD Work Phone: Start: 05-18-2024 ACID FAST CULTURE Gener ic [...] Comment on above: Performed By: #### P [facility] #### [facility] [address] [place] [address] Dr. Kelton Ludwig Start: 03-14-2020 Colonoscopy Harris [...] MATIAS Start: 10-09-2017 BUN AND CREATININE BLAKE SHOSHANA MATIAS Start: 10-09-2017 ELECTROLYTE PANEL KAYLIN Lyons JOEL Start: 10-09-2017 GLUCOSE, RANDOM MEGAN JOEL Start: 10-09-2017 NURSING COMMUNICATION T NATO MATIAS Start: 10-09-2017 EKG 12-LEAD VINCENT Plan of Treatment Date Care Activity Detail Author Start: 03-14-2030 Screening for malign ant neoplasm of colon [facility] Start: 02-11-2025 Glaucoma screening Diabetes: R etinopathy Screening [facility] Start: 01-24-2025 Urine screening for protein Diabetes: Urine Protein Screening [facility] Start: 01-11-2025 Hemoglobin A1c measurement Diabetes: Hemoglobin A1C [facility] Start: 10-14-2024 End: 10-14-2024 Patient encounter procedure 10/14/2024 7:00 AM EDT Office Visit [facility] [address] [place] [address] Harris Bang MD [address] [place] [id number] [facility] Start: 2024 Fall Risk Screening Fall Risk Screen [facility] Start: 07-14-2024 End: 07-14-2024 Patient encounter procedure 07/14/2024 3:00 PM EST Office Visit [facility] [address] [place] [id number] Harris Bang MD [address] [place] [address] [facility] Start: 05-26-2024 End: 05-26-2025 Hemoglobin A1c/Hemoglobin.total in Blood Hemoglobin A1c Lab Routine Type 2 diabetes mellitus with hyperglycemia, without long-term current use of insulin ([facility]) Expected: 05/26/2024 (Approximate), Expires: 05/26/2025 [facility] Work Phone: Comment on above: Expected: 05/26/2024 (Approximate), Expires: 05/26/2025 Start: 05-26-2024 End: 05-26-2024 Patient encounter procedure [facility] Comment on above: Arrived Start: 04-15-2024 End: 04-15-2024 Patient encounter procedure 04/15/2024 7:15 AM EDT Office Visit [facility] [address] [place] [address] Harris Bang MD [address] [place] [phone] [facility] Start: 04-05-2024 Influenza vaccination N [facility] Start: 02-08-2024 Hemoglobin A1c measurement Diabetes: Hemoglobin A1C [facility] Start: 11-09-2023 Hemoglobin A1c measurement Diabetes: Hemoglobin A1C [facility] Start: 2009 Administration of varicella zoster vaccine Zoster (Shingles) Vaccine (1 of 2) [facility] Start: 1978 DTaP,Tdap and Td Vac cines (1 - Tdap) DTaP,Tdap and Td Vaccines (1 - Tdap) [facility] Start: 1978 Urine screening for protein Diabetes: Urine Protein Screening [facility] Start: 1977 Adult BMI Screening Adult BMI Screen ing [facility] Start: 1971 Depression Screening Depression Scre ening [facility] Start: 1971 Tobacco Screening Tobacco Screening [facility] Start: 1965 Pneumococcal Vaccine : 65+ Years (1 of 2 - PCV) Pneumococcal Vaccine: 65+ Years (1 of 2 - PCV) [facility] Start: 1959 Medicare Annual Well ness (AWV) Medicare Annual Wellness (AWV) [facility] Start: 1959 Screening for malign ant neoplasm of colon [facility] ACID FAST CULTURE ACID FAST CULT URE Lab Routine 05/16/2024 11:38 AM EDT [facility] ACID FAST CULTURE ACID FAST CULT URE Lab Routine 05/18/2024 1:03 PM EDT [facility] BLOOD CULTURE 1 BLOOD CULTURE 1 Lab Routine 05/14/2024 5:06 PM EDT [facility] BLOOD CULTURE 2 BLOOD CULTURE 2 Lab Routine 05/14/2024 5:12 PM EDT [facility] Immunizations Immunization Date Immunization Notes Care Provider Camryn luther 07-22-2021 Pfizer Purple Cap SARS-CoV-2 Vaccination Harris Bang MD Work Phone: [facility] 11-05-2020 Pfizer Purple Cap SARS-CoV-2 Vaccination Harris Bang MD Work Phone: [facility] 10-15-2020 Pfizer Purple Cap SARS-CoV-2 Vaccination Harris Bang MD Work Phone: [facility] Payers Date Payer Category Payer Medicare (Managed Care) [id number]. [id number] 2024 Medicare [id number] 2023 Private Health Insurance [id number] 2023 Unknown [id number] 2023 Unknown [id number] 2022 Unknown [id number] 2019 Managed Care Other (unspecified) FRONTPATH [id number] 2019 Unknown [id number] 2014 Unknown [id number] 1959 Private Health Insurance [id number] 1959 Self-pay 1959 Unknown [id number]. 593 1959 Unknown [id number]. 593 1959 Unknown [id number]. 593 1959 Unknown [id number]. 1259 1959 Unknown [id number] [id number]. 1259 1959 Unknown [id number] [id number]. 1259 1959 Unknown [id number] [id number]. 1259 1959 Unknown [id number]. 1259 Social History Date Type Detail Facility Start: 10-16-2023 Tobacco smoking status VAIS Never smoked tobacco [facility] Start: 02-11-2020 End: 10-16-2023 Tobacco use and exposure Smokeless tobacco non-user [facility] Start: 09-14-2020 End: 10-09-2023 History of Social function [facility] Start: 09-14-2020 End: 10-09-2023 Social connection and isolation panel [facility] How often do you att end confucianism or christianity services? Patient declined [facility] Do you belong to any clubs or organizations such as confucianism groups, unions, fraternal or athletic groups, or [...] Healthcare Start: 1960 Sex assigned at Male [facility] Start: 06-02-2023 Gender identity Identifies as male gender (finding) [facility] Start: 06-02-2023 Sexual orientation Heterosexual (finding) [facility] Start: 02-11-2020 Tobacco smoking status VAIS Ex-smoker [facility] History of tobacco use Current smoker [facility] History of tobacco use Cigarette Smoker P [facility] Start: 02-11-2020 Alcohol Comment SOCIALLY [facility] Start: 1960 Sex assigned at Not on file [facility] Start: 03-08-2015 Sex Male (finding) [facility] Medical Equipment Procedure Code Equipment Code Equipment Origin al Text Equipment Identifier Dates 1 each by In Vit ro route Daily [id number] Start: 03-19-2024 1 each by In Vit ro route Daily [id number] Start: 08-10-2024 1 each Daily [id number] Start: 08-14-2024 Clinical Notes 01-07-2024 to 10-06-2024 Telephone Encounter - Bella Santiago CMA - 10/06/2024 9:56 AM ESTTelephone Encounter - Bella Santiago CMA - 10/06/2024 9:56 AM ESTTelephone Encounter - Camila Montgomery - 08/14/2024 7:10 AM EST Note Date & Type Note Facility 10-06-2024 Miscellaneous Notes Formattin g of this note might be different from the original. EMPANELMENT OUTREACH Santo Scott has been contacted in effort to establish and/or re-establish care as a new patient with [facility]: Yes Outreach Date: October 06, 2024 Outreach Reason: Attribution Outreach Method: Telephone Outreach Attempt: First Attempt Outreach Outcome: Left Message and Letter Sent New Patient Appointment: NA Attributed Provider: Maco Mercado Additional Comments: PCP is accepting new patients. Unable to reach patient by telephone. Letter sent regarding how to establish care. documented in this encounter [facility] 10-06-2024 Telephone encount er Note EMPANELMENT OUTREACH Santo Scott has been contacted in effort to establish and/or re-establish care as a new patient with [facility]: Yes Outreach Date: October 06, 2024 Outreach Reason: Attribution Outreach Method: Telephone Outreach Attempt: First Attempt Outreach Outcome: Left Message and Letter Sent New Patient Appointment: NA Attributed Provider: Maco Mercado Additional Comments: PCP is accepting new patients. Unable to reach patient by telephone. Letter sent regarding how to establish care. [facility] 08-14-2024 Telephone encount er Note Pharmacy called and stated that they need an order for Ultra 2 meter Lancets ... They have everything else but the lancets [facility] 08-14-2024 Miscellaneous Notes Formattin g of this note might be different from the original. Pharmacy called and stated that they need an order for Ultra 2 meter Lancets ... They have everything else but the lancets documented in this encounter [facility] 07-14-2024 History of Presen t illness Narrative Associated Problem(s): Type 2 diabetes mellitus with hyperglycemia, without long-term current use of insulin (CMS/HCC) Reports BS improved and A1C 9.0. Stick to ADA diet and limit carbs. Associated Problem(s): Tremor, essential Symptoms stable with primidone and continue. Associated Problem(s): Moderate recurrent major depression (CMS/HCC) Symptoms controlled with medication and continue. Associated Problem(s): Generalized anxiety disorder (CMS/HCC) Symptoms controlled with medication and continue. Associated Problem(s): Essential hypertension, benign (CMS/HCC) BP controlled and monitor PRN. Images from the original note were not included. Subjective Patient ID: Santo Scott is a 63 y.o. male who presents for Follow-up (2m ). Follow up DM, HTN, depression, anxiety, essential tremor, and GERD. Reports BS improved since arm healing. BS 110-300 with average around 180-200. Tries to eat well and stick to ADA diet. Denies signs of elevated BS such as polyuria, polyphagia or polydipsia. A1C 9.9. Checking BP PRN and typically controlled. BP normal today. Taking medication daily and tolerating without side effects. Depression and anxiety improved. Not as down or sad and feels happier. Able to increase activity and do more around the house. Anxiety stable. Not as stressed out or overwhelmed. Not as nervous or worry as much. Not as kim or irritable. Tremor stable. Occasional intention tremor and noticeable when writing but overall improved with medication. Review of Systems Constitutional: Negative for fatigue. [...] Items Addressed This Visit Essential hypertension, benign (CMS/HCC) BP controlled and monitor PRN. Tremor, essential Symptoms stable with primidone and continue. Generalized anxiety disorder (CMS/HCC) Symptoms controlled with medication and continue. Moderate recurrent major depression (CMS/HCC) Symptoms controlled with medication and continue. Type 2 diabetes mellitus with hyperglycemia, without long-term current use of insulin (CMS/HCC) - Primary Reports BS improved and A1C 9.0. Stick to ADA diet and limit carbs. documented in this encounter [facility] 05-26-2024 History of Presen t illness Narrative [...] Cut arm about 5 weeks prior on metallurgist helper. Did not get checked and glued closed. [...] Items Addressed This Visit Essential hypertension, benign (CMS/HCC) BP controlled and monitor PRN. Type 2 diabetes mellitus with hyperglycemia, without long-term current use of insulin (CMS/HCC) BS elevated and monitor. Stick to ADA diet and limit carbs. Repeat A1C prior to next visit. Relevant Orders Hemoglobin A1c Cellulitis of left arm - Primary Wound healing and follow with wound care and ortho. Continue antibiotics as prescribed. documented in this encounter [facility] 05-14-2024 History of Presen t illness Narrative Associated Problem(s): Type 2 diabetes mellitus with hyperglycemia, without long-term current use of insulin (CMS/HCC) BS elevated with infection and monitor. Associated [...] arm. About 5 weeks ago using a bearing grinder and blade came off cutting left [...] need IV antibiotics. documented in this encounter [facility] 04-29-2024 Miscellaneous Notes Formattin g of this note might be different from the original. EMPANELMENT OUTREACH Santo Scott has been contacted in effort to establish and/or re-establish care as a new patient with [facility]: Yes Outreach Date: April 29, 2024 Outreach Reason: Attribution Outreach Method: Telephone Outreach Attempt: Second Attempt Outreach Outcome: Contacted Patient New Patient Appointment: Declined Attributed Provider: Maco Mercado CNP Additional Comments: Patient states that he has a primary care provider and will update his insurance carrier. documented in this encounter [facility] 04-29-2024 Telephone encount er Note EMPANELMENT OUTREACH Santo Scott has been contacted in effort to establish and/or re-establish care as a new patient with [facility]: Yes Outreach Date: April 29, 2024 Outreach Reason: Attribution Outreach Method: Telephone Outreach Attempt: Second Attempt Outreach Outcome: Contacted Patient New Patient Appointment: Declined Attributed Provider: Maco Mercado CNP Additional Comments: Patient states that he has a primary care provider and will update his insurance carrier. [facility] 01-07-2024 Miscellaneous Notes Formattin g of this note might be different from the original. EMPANELMENT OUTREACH Santo Scott has been contacted in effort to establish and/or re-establish care as a new patient with [facility]: Yes Outreach Date: January 07, 2024 Outreach Reason: Attribution Outreach Method: Telephone Outreach Attempt: First Attempt Outreach Outcome: Left Message New Patient Appointment: NA Attributed Provider: Maco Mercado CNP Additional Comments: PCP is accepting new patients. Unable to reach patient by telephone. Letter sent regarding how to establish care. documented in this encounter [facility] 01-07-2024 Telephone encount er Note EMPANELMENT OUTREACH Santo Scott has been contacted in effort to establish and/or re-establish care as a new patient with [facility]: Yes Outreach Date: January 07, 2024 Outreach Reason: Attribution Outreach Method: Telephone Outreach Attempt: First Attempt Outreach Outcome: Left Message New Patient Appointment: NA Attributed Provider: Maco Mercado CNP Additional Comments: PCP is accepting new patients. Unable to reach patient by telephone. Letter sent regarding how to establish care. [facility] Evaluation note Diagnosis Cellulitis of left arm- Primary Type 2 diabetes mellitus with hyperglycemia, without long-term current use of insulin (CMS/HCC) documented in this encounter [facility] HealthcareEvaluation note* Diagnosis Type 2 diabetes mellitus with hyperglycemia, [...] Generalized anxiety disorder (CMS/HCC) Generalized anxiety disorder Morbid obesity due to excess calories (CMS/HCC) Obesity (BMI 30-39.9) Generalized osteoarthrosis, involving multiple sites Dyslipidemia (CMS/HCC) Other and unspecified hyperlipidemia Encounter for long-term (current) use of medications Encounter for long-term (current) use of other medications Vitamin D deficiency Cellulitis of left arm- Primary Type 2 diabetes mellitus with hyperglycemia, without long-term current use of insulin (CMS/HCC) Cellulitis of left arm- Primary Essential hypertension, benign (CMS/HCC) Essential hypertension, benign Type 2 diabetes mellitus with hyperglycemia, without long-term current use of insulin (CMS/HCC) Immunodeficiency due to conditions classified elsewhere (CMS/HCC) documented in this encounter [facility] HealthcareEvaluation note* Diagnosis Type 2 diabetes mellitus with hyperglycemia, without long-term current use of insulin ([facility])- Primary Essential hypertension, benign ([facility]/HCC) Essential hypertension, benign Moderate recurrent major depression (CMS/HCC) Major depressive disorder, recurrent episode, moderate Generalized anxiety disorder ([facility]/HCC) Generalized anxiety disorder Gastroesophageal reflux disease without esophagitis Esophageal reflux Tremor, essential Essential and other specified forms of tremor Dyslipidemia (CMS/HCC) Other and unspecified hyperlipidemia Type 2 diabetes mellitus with hyperglycemia, without long-term current use of insulin ([facility])- Primary Essential hypertension, benign (CMS/HCC) Essential hypertension, benign Moderate recurrent major depression (CMS/HCC) Major depressive disorder, recurrent episode, moderate Generalized anxiety disorder ([facility]/HCC) Generalized anxiety disorder Morbid obesity due to excess calories ([facility]) Obesity (BMI 30-39.9) Generalized osteoarthrosis, involving multiple sites Dyslipidemia ([facility]) Other and unspecified hyperlipidemia Encounter for long-term (current) use of medications Encounter for long-term (current) use of other medications Vitamin D deficiency Cellulitis of left arm- Primary Type 2 diabetes mellitus with hyperglycemia, without long-term current use of insulin ([facility]) Cellulitis of left arm- Primary Essential hypertension, benign ([facility]) Essential hypertension, benign Type 2 diabetes mellitus with hyperglycemia, without long-term current use of insulin ([facility]) Immunodeficiency due to conditions classified elsewhere ([facility]) Type 2 diabetes mellitus with hyperglycemia, without long-term current use of insulin ([facility]) documented in this encounter [facility] HealthcareEvaluation note* Diagnosis Type 2 diabetes mellitus with hyperglycemia, without long-term current use of insulin ([facility])- Primary Essential hypertension, benign ([facility]/HCC) Essential hypertension, benign Moderate recurrent major depression ([facility]/HCC) Major depressive disorder, recurrent episode, moderate Generalized anxiety disorder ([facility]) Generalized anxiety disorder Gastroesophageal reflux disease without esophagitis Esophageal reflux Tremor, essential Essential and other specified forms of tremor Dyslipidemia ([facility]/HCC) Other and unspecified hyperlipidemia Type 2 diabetes mellitus with hyperglycemia, without long-term current use of insulin ([facility])- Primary Essential hypertension, benign ([facility]/HCC) Essential hypertension, benign Moderate recurrent major depression (CMS/HCC) Major depressive disorder, recurrent episode, moderate Generalized anxiety disorder ([facility]/HCC) Generalized anxiety disorder Morbid obesity due to excess calories ([facility]) Obesity (BMI 30-39.9) Generalized osteoarthrosis, involving multiple sites Dyslipidemia ([facility]/HCC) Other and unspecified hyperlipidemia Encounter for long-term (current) use of medications Encounter for long-term (current) use of other medications Vitamin D deficiency Cellulitis of left arm- Primary Type 2 diabetes mellitus with hyperglycemia, without long-term current use of insulin ([facility]) Cellulitis of left arm- Primary Essential hypertension, benign ([facility]) Essential hypertension, benign Type 2 diabetes mellitus with hyperglycemia, without long-term current use of insulin ([facility]) Immunodeficiency due to conditions classified elsewhere ([facility]) Essential hypertension, benign ([facility]) Essential hypertension, benign documented in this encounter [facility] HealthcareEvaluation note* Diagnosis Type 2 diabetes mellitus with hyperglycemia, without long-term current use of insulin ([facility])- Primary Essential hypertension, benign ([facility]) Essential hypertension, benign Moderate recurrent major depression ([facility]) Major depressive disorder, recurrent episode, moderate Generalized anxiety disorder ([facility]) Generalized anxiety disorder Gastroesophageal reflux disease without esophagitis Esophageal reflux Tremor, essential Essential and other specified forms of tremor Dyslipidemia ([facility]) Other and unspecified hyperlipidemia Type 2 diabetes mellitus with hyperglycemia, without long-term current use of insulin ([facility])- Primary Essential hypertension, benign ([facility]) Essential hypertension, benign Moderate recurrent major depression ([facility]) Major depressive disorder, recurrent episode, moderate Generalized anxiety disorder ([facility]) Generalized anxiety disorder Morbid obesity due to excess calories ([facility]) Obesity (BMI 30-39.9) Generalized osteoarthrosis, involving multiple sites Dyslipidemia ([facility]) Other and unspecified hyperlipidemia Encounter for long-term (current) use of medications Encounter for long-term (current) use of other medications Vitamin D deficiency Cellulitis of left arm- Primary Type 2 diabetes mellitus with hyperglycemia, without long-term current use of insulin ([facility]) Cellulitis of left arm- Primary Essential hypertension, benign ([facility]) Essential hypertension, benign Type 2 diabetes mellitus with hyperglycemia, without long-term current use of insulin ([facility]) Immunodeficiency due to conditions classified elsewhere ([facility]) Type 2 diabetes mellitus with hyperglycemia, without long-term current use of insulin ([facility])- Primary Essential hypertension, benign ([facility]) Essential hypertension, benign Moderate recurrent major depression ([facility]) Major depressive disorder, recurrent episode, moderate Generalized anxiety disorder ([facility]/HCC) Generalized anxiety disorder Tremor, essential Essential and other specified forms of tremor documented in this encounter [facility] HealthcareEvaluation note* Diagnosis Dyslipidemia ([facility]/HCC) Other and unspecified hyperlipidemia Type 2 diabetes mellitus with hyperglycemia, without long-term current use of insulin ([facility]) documented in this encounter [facility] HealthcareEvaluation note* Diagnosis Type 2 diabetes mellitus with hyperglycemia, without long-term current use of insulin ([facility])- Primary Essential hypertension, benign ([facility]) Essential hypertension, benign Moderate recurrent major depression ([facility]/HCC) Major depressive disorder, recurrent episode, moderate Generalized anxiety disorder ([facility]/HCC) Generalized anxiety disorder Gastroesophageal reflux disease without esophagitis Esophageal reflux Tremor, essential Essential and other specified forms of tremor Dyslipidemia ([facility]/HCC) Other and unspecified hyperlipidemia Type 2 diabetes mellitus with hyperglycemia, without long-term current use of insulin ([facility])- Primary Essential hypertension, benign ([facility]) Essential hypertension, benign Moderate recurrent major depression ([facility]/HCC) Major depressive disorder, recurrent episode, moderate Generalized anxiety disorder ([facility]) Generalized anxiety disorder Morbid obesity due to excess calories ([facility]) Obesity (BMI 30-39.9) Generalized osteoarthrosis, involving multiple sites Dyslipidemia ([facility]) Other and unspecified hyperlipidemia Encounter for long-term (current) use of medications Encounter for long-term (current) use of other medications Vitamin D deficiency Cellulitis of left arm- Primary Type 2 diabetes mellitus with hyperglycemia, without long-term current use of insulin ([facility]) Cellulitis of left arm- Primary Essential hypertension, benign ([facility]) Essential hypertension, benign Type 2 diabetes mellitus with hyperglycemia, without long-term current use of insulin ([facility]) Immunodeficiency due to conditions classified elsewhere ([facility]) Type 2 diabetes mellitus with hyperglycemia, without long-term current use of insulin ([facility])- Primary Essential hypertension, benign ([facility]) Essential hypertension, benign Moderate recurrent major depression ([facility]/HCC) Major depressive disorder, recurrent episode, moderate Generalized anxiety disorder ([facility]) Generalized anxiety disorder Tremor, essential Essential and other specified forms of tremor Type 2 diabetes mellitus with hyperglycemia, without long-term current use of insulin ([facility])- Primary documented in this encounter [facility] HealthcareInstructionsNot on filedocumented in this encounterPro[facility] SystemInstructionsNot on filedocumented in this encounterProMedica [facility] Summary Purpose Family History No Family History [...] section and content) DATE CREATED AUTHOR 04/02/2018 [facility] DATE CREATED AUTHOR AUTHOR'S ORGANIZ ATION 12/03/2022 [facility] DATE CREATED AUTHOR AUTHOR'S ORGANIZ ATION 03/08/2023 [employer] [facility] DATE CREATED AUTHOR AUTHOR'S ORGANIZ ATION [address] [facility] Reason for Visit (unrecogniz ed section and content) Reason Comments Arm Injury Red swollen to elbow Reason Comments Follow-up Follow up Cut on arm Reason Comments Follow-up 2m Reason Onset Date Comments Med Refill 03/31/2024 Reason Onset Date Comments Attribution Outreach 01/07/2024 Reason Onset Date Comments attribution outreach 04/29/2024 Reason Onset Date Comments Attribution Outreach 10/06/2024 Care Teams (unrecognized sec tion and content) Vice President Of Nursing Relationship Specialty Start Date End Date Harris Bang MD [address] [place] [phone] PCP - General Family Medicine 09/09/23 Vice President Of Nursing Relationship Specialty Start Date End Date Harris Bang MD [address] [place] [phone] PCP - General Family Medicine 09/09/23 Vice President Of Nursing Relationship Specialty Start Date End Date Harris Bang MD [address] [place] [phone] PCP - General Family Medicine 09/09/23 Vice President Of Nursing Relationship Specialty Start Date End Date Harris Bang MD [address] [place] [address] PCP - General Family Medicine 09/09/23 Vice President Of Nursing Relationship Specialty Start Date End Date Harris Bang MD [address] [place] [address] PCP - General Family Medicine 09/09/23 Vice President Of Nursing Relationship Specialty Start Date End Date Harris Bang MD [address] [place] [address] PCP - General Family Medicine 09/09/23 Vice President Of Nursing Relationship Specialty Start Date End Date Harris Bang MD [address] [place] [address] PCP - General Family Medicine 09/09/23 Vice President Of Nursing Relationship Specialty Start Date End Date Harris Bang MD [address] [place] [address] PCP - General Family Medicine 09/09/23 Vice President Of Nursing Relationship Specialty Start Date End Date Harris Bang MD [address] [place] [address] PCP - General Family Medicine 09/09/23 Vice President Of Nursing Relationship Specialty Start Date End Date Harris Bang MD [address] [place] [address] PCP - General Family Medicine 09/09/23 Vice President Of Nursing Relationship Specialty Start Date End Date Harris Bang MD [address] [place] [address] PCP - General Family Medicine 09/09/23 Vice President Of Nursing Relationship Specialty Start Date End Date Harris Bang MD [address] [place] [address] PCP - General Family Medicine 01/22/20 Vice President Of Nursing Relationship Specialty Start Date End Date Harris Bang MD PCP - General Family Medicine 01/22/20 Vice President Of Nursing Relationship Specialty Start Date End Date Harris Bang MD PCP - General Family Medicine 01/22/20 FOR RECORDS PERTAINING TO PATIENTS WHO ARE [...] THE PRIMARY CLINICAL RECORDS. [facility] [employer] [facility]. provides no warranty or guarantee of the accuracy or completeness of information in this document.
--- OUTSIDE RECORDS SUMMARY | 2025-01-23 08:01 | XMS_ITS | Encounter Summary ---
Author Organization [facility] Address [address] [place] [address] Care Team Providers Care Stabilizing Machine Operator Name Role Phone Harris Alarcon MD Primary Care Provider [phone] Encounter Details Date Type Department Care Team (Late st Contact Info) Description 05/18/2024 Orders Only [facility] [address] [place] [address] [place] [id number] Shaikh Amador MD [address] [place] [address] Social History Tobacco Use Types Packs/Day Years Used Date Smoking Tobacco: Never Smokeless Tobacco: Never Social Connection and Isolation Panel [NHANES] A nswer Date Recorded In a typical week, how many times do you talk on the phone with family, friends, or neighbors? Three times a week 10/09/2023 How often do you get togethe r with friends or relatives? Once a week 10/09/2023 How often do you attend chur or quaker services? Patient declined 10/09/2023 Do you belong to any clubs o r organizations such as baptist groups, unions, fraternal or athletic groups, or school groups? No 10/09/2023 How often do you attend meet ings of the clubs or organizations you belong to? Patient declined 10/09/2023 Are you , , di vorced, , never , or living with a partner? 10/09/2023 AUDIT-C Answer Date Recorded Q1: How often do you have a drink containing alc ohol? 2-4 times a month 10/09/2023 Q2: How many drinks containi ng alcohol do you have on a typical day when you are drinking? 1 or 2 10/09/2023 Q3: How often do you have si x or more drinks on one occasion? Never 10/09/2023 Overall Financial Resource Strain (CARDIA) Answe r Date Recorded How hard is it for you to pa y for the very basics like food, housing, medical care, and heating? Somewhat hard 10/09/2023 [facility] - Occupational Stress Questionnaire Answer Date Recorded Do you feel stress - tense, restless, nervous, or anxious, or unable to sleep at night because your mind is troubled all the time - these days? Only a little 10/09/2023 Exercise Vital Sign Answer Date Recorde d On average, how many days pe r week do you engage in moderate to strenuous exercise (like a brisk walk)? 3 days 10/09/2023 On average, how many minutes do you engage in exercise at this level? 30 min 10/09/2023 Hunger Vital Sign Answer Date Recorded Within the past 12 months, y ou worried that your food would run out before you got the money to buy more. Never true 10/09/19 24 Within the past 12 months, t he food you bought just didn't last and you didn't have money to get more. Never true 10/09/2023 PRAPARE - Transportation Answer Date Re corded In the past 12 months, has l ack of transportation kept you from medical appointments or from getting medications? No 01/2024 In the past 12 months, has l ack of transportation kept you from meetings, work, or from getting things needed for daily living? No 10/09/2023 Housing Stability Vital Sign Answer Moshe e Recorded In the last 12 months, was t here a time when you were not able to pay the mortgage or rent on time? No 10/09/2023 In the last 12 months, how many places have you lived? 1 10/09/2023 In the last 12 months, was t here a time when you did not have a steady place to sleep or slept in a intermediate (including now)? No 10/09/2023 Sex and Gender Information Value Date Recorded Sex Assigned at Male 06/02/2023 6:12 PM EDT Legal Sex Male 6:43 PM EDT Gender Identity Male 06/02/2023 6:12 PM EDT Sexual Orientation Straight 06/02/2023 6: 12 PM EDT documented as of this encounter Plan of Treatment Upcoming Encounters Date Type Department Care Team (Late st Contact Info) Description 02/10/2025 7:00 AM EDT Office Visit [facility] [address] [address] Harris Alarcon MD [address] [place] [address] documented as of this encounter Procedures Procedure Name Priority Date/Time Associated Diagnosis Comments CT FOREARM LEFT W/ CONTRAST Routine 05/15/2024 1:04 PM EDT documented in this encounter Results * CT FOREARM LEFT W/ CONTRAST (05/15/2024 1:04 PM EDT) Anatomical Region Laterality Modality Radiographic Alisa ging us Shaikh Marjorie GARZA IMG XR PROCEDURES Final Result documented in this encounter Visit Diagnoses Not on filedocumented in this encounter Care Teams Stabilizing Machine Operator Relationship Specialty Start Date End Date Harris Alarcon MD [address] [place] [address] PCP - General Family Medicine 09/09/23 documented as of this encounter
--- OUTSIDE RECORDS SUMMARY | 2025-01-23 08:01 | XMS_ITS | Encounter Summary ---
Author Organization [facility] Address [address] [place] [address] Care Team Providers Care Senior Java Software Developer Name Role Phone Harris Alarcon MD Primary Care Provider Reason for Visit * Reason Comments Med Refill Encounter Details Date Type Department Care Team (Late st Contact Info) Description [facility] [address] [place] [address] Harris Alarcon MD [address] [place] [address] Type 2 diabetes mellitus with hyperglycemia, without long-term current use of insulin (HCC); Moderate recurrent major depression (HCC); Essential hypertension, benign Social History Tobacco Use Types Packs/Day Years [...] 10/09/2023 How often do you attend chur ch or amish services? Patient declined 10/09/2023 Do you belong to any clubs o r organizations such as faith groups, unions, fraternal or athletic groups, or [...] medical care, and heating? Somewhat hard 10/09/2023 [facility] - Occupational [...] place to sleep or slept in a longterm (including now)? No 10/09/2023 Sex and Gender Information Value Date Recorded Sex Assigned at Male 06/02/2023 6:12 PM EDT Legal Sex Male 6:43 PM EDT Gender Identity Male 06/02/2023 6:12 PM EDT Sexual Orientation Straight 06/02/2023 6: 12 PM EDT documented as of this encounter Miscellaneous Notes * Telephone Encounter - CARLITOS ULLOA - 01/18/2025 9:44 AM EDT MEDICATION SENT TO [facility] documented in this encounter Plan of Treatment Upcoming Encounters Date Type Department Care Team (Late st Contact Info) Description 02/10/2025 7:00 AM EDT [facility] [address] [place] [address] Harris Alarcon MD [address] [place] [address] documented as of this encounter Visit Diagnoses Diagnosis Type 2 diabetes mellitus with hyperglycemia, without long-term current use of insulin (HCC) Moderate recurrent major depression (HCC) Major depressive disorder, recurrent episode, moderate Essential hypertension, benign Essential hypertension, benign documented in this encounter Care Teams Senior Java Software Developer Relationship Specialty Start Date End Date Harris Alarcon MD [address] [place] [address] PCP - General Family Medicine 09/09/23 documented as of this encounter
--- OUTSIDE RECORDS SUMMARY | 2025-01-23 08:01 | XMS_ITS | Encounter Summary ---
Author Organization [facility] Address [address] [place] [place] [address] Care Team Providers Care Aircrewman Name Role Phone Harris Alarcon MD Primary Care Provider [phone] Encounter Details Date Type Department Care Team (Late st Contact Info) Description 05/29/2024 Orders Only [facility] [address] [place] [address] Shaikh Amador MD [address] [place] [address] Social History Tobacco Use Types Packs/Day Years [...] How often do you attend chur or samaritan services? Patient declined 10/09/2023 Do you belong to any clubs o r organizations such as nondenominational groups, unions, fraternal or athletic groups, or [...] medical care, and heating? Somewhat hard 10/09/2023 [facility] - Occupational [...] place to sleep or slept in a long term (including now)? No 10/09/2023 Sex and Gender [...] EDT Office Visit [facility] [address] [place] [address] Harris Alarcon MD [address] [place] [address] documented as of this encounter Procedures Procedure Name Priority Date/Time Associated Diagnosis Comments XR CHEST 1 VIEW Routine 05/28/2024 10:18 AM EDT documented in this encounter Results * XR chest 1 view (05/28/2024 10:18 AM EDT) Anatomical Region Laterality Modality Chest Radiographic Alisa ging us Shaikh Marjorie GARZA IMG XR PROCEDURES Final Result documented in this encounter Visit Diagnoses Not on filedocumented in this encounter Care Teams Aircrewman Relationship Specialty Start Date End Date Harris Alarcon MD [address] [place] [address] PCP - General Family Medicine 09/09/23 documented as of this encounter
--- OUTSIDE RECORDS SUMMARY | 2025-01-23 08:01 | XMS_ITS | Clinical Summary ---
Author Organization [facility] Address [address] [place] [address] Care Team Providers Care Inspector Filters Name Role Phone Harris Alarcon MD Primary Care Provider + Allergies No known active allergies Medications pioglitazone (ACTOS) 45 MG tablet Take 45 mg by mouth Daily with supper Active pantoprazole (PROTONIX) 20 MG tablet Take 20 mg by mouth daily. Active DULoxetine (CYMBALTA) 60 MG capsule Take 60 mg by mouth 2 times daily. Active Multiple Vitamin (MVI, CELEBRATE, CHEWABLE TABLET) Take 1 tablet by mouth daily Active CALCIUM CITRATE, BARIATRIC ADVANTAGE, 500MG LOZENGE Take 1 lozenge by mouth 2 times daily Active zolpidem (AMBIEN) 10 MG tablet Take 10 mg by mouth nightly as needed 0 5 Active citalopram (CELEXA) 40 MG tablet Take 40 mg by mouth Daily with supper 0 5 Active losartan (COZAAR) 50 MG tablet Take 50 mg by mouth daily 0 5 Active metFORMIN (GLUCOPHAGE) 1000 MG tablet Take 500 mg by mouth 2 times daily (with meals) 0 7 Active losartan-hydroc hlorothiazide (HYZAAR) 100-25 MG per tablet Take 1 tablet by mouth daily Active senna (SENOKOT) 8.6 MG TABS tablet Take 1 tablet by mouth 2 times daily 60 tablet 8 Active docusate sodium (COLACE) 100 MG capsule Take 1 capsule by mouth 2 times daily as needed for Constipation 60 capsule 8 Active vitamin D (ERGOCALCIFEROL ) 40299 units CAPS capsuleIndicati ons:Vitamin D deficiency Take 1 capsule by mouth once a week for 8 doses 8 capsule 8 Active Active Problems Patient Care Coordination No te Formatting of this note is d ifferent from the original. Post -op Bariatric Summary Procedure: Sleeve Surgeon: Dr Shelton HT: 63 Date Weight Labs Ordered Labs Resulted Notes Initial Wt Day of Surgery 10/26/14 345lb 1 Wk Post-op 5 Wk Post-op ? 3 Mon Post-op ? ? 6 Mon Post-op ? 9 Mon Post-op ? 1 Year Post-op ? Annual ? 03-15-18 Pending result of the labs Starting at 1 Wk Post-op: Bariatric Multivitamin with iron and Calcium Citrate Problem Noted Date Diagnosed Date Anxiety and depression 12/06/2017 Obesity (BMI 30-39.9) 12/06/2017 Myelopathy 10/21/2017 Diabetes mellitus type 2, controlled, without co mplications 03/25/2015 Essential hypertension 03/25/2015 Obesity (BMI 30-39.9) 03/25/2015 Vitamin D deficiency 03/25/2015 S/P laparoscopic sleeve gastrectomy 10/26/2014 Overview (10/28/2014): Start wt = 345lb, Dr. Cat Delacruz Resolved Problems Problem Noted Date Diagnosed Date Resolved Date Type 2 diabetes mellitus, uncontrolled 07/15/2015 03/31/2018 Morbid obesity 07/08/2014 03/25/2015 Family History Medical History Relation Name Comments Depression Father Diabetes Father Heart Attack Father Heart Disease Father High Blood Pressure Father Ovarian Cancer Maternal Grandmother Diabetes Mother Heart Disease Mother High Blood Pressure Mother Relation Name Status Comments Father DM Maternal Grandmother Mother (Age 69) HD Sister Alive Social History Tobacco Use Types Packs/Day Years Used Date Smoking Tobacco: Former Cigarettes 0.5 14 1 978 - 08/05/1991 Smokeless Tobacco: Former Quit: 09/05/2013 Alcohol Use Standard Drinks/Week Comments No 0 (1 standard drink = 0.6 oz pure alcohol) 1-2 per week, willing to avoid all alcohol for at least 6 mon after wt loss surgery PHQ-2 Answer Date Recorded PHQ-2 Score 0 11/05/2018 Sex and Gender Information Value Date Recorded Sex Assigned at Not on file Legal Sex Male 8:46 AM EST Gender Identity Not on file Sexual Orientation Not on file Last Filed Vital Signs Vital Sign Reading Time Taken Comments Blood Pressure 122/66 03/31/2018 10:10 AM EDT Pulse 70 03/31/2018 10:10 AM EDT Temperature 36.6 C (97.9 F) 12/23/2017 2:26 PM EDT Respiratory Rate 20 03/31/2018 10:10 AM EDT Oxygen Saturation 98% 12/23/2017 2:26 PM EDT Inhaled Oxygen Concentration - - Weight 147.9 kg (326 lb) 03/31/2018 10:10 AM EDT Height 193 cm (6' 4 ) 03/31/2018 10:10 AM EDT Body Mass Index 39.68 03/31/2018 10:10 AM EDT Plan of Treatment Not on file Medical Devices Implanted Type Area Wildlife Conservation Professor Device Identifier Shelf Expiration Date Model / Serial / Lot Misael-Cellular Bone Matrix 5cc - [id number] Implanted:Qty : 1 on 10/21/2017 by Karthik Matias MD at [facility] Bone/[place] t/Tissue/ Human/Syn th N/A: Neck [employer]-PMM 10/13/2019 [id number] / [id number] / [id number] Impl Spacer Spine [id number] 7deg 7mm Implanted:Qty : 1 on 10/21/2017 by Karthik Matias MD at [facility] Spine N/A: Neck [employer]-PMM [id number] / / Screw Variable Self-Drilling 3.6mm 14mm Implanted:Qty : 2 on 10/21/2017 by Karthik Matias MD at [facility] Spine N/A: Neck [employer] [id number] / / Insurance [employer] Advance Directives * Full Code (Latest Code Status on File) Date Activated Date Inactivated Comments 10/21/2017 11:51 AM 10/22/2017 7:32 PM * Full Code Date Activated Date Inactivated Comments 10/26/2014 11:25 AM 10/27/2014 8:19 PM Care Teams Inspector Filters Relationship Specialty Start Date End Date Harris Alarcon MD PCP - General 08/20/14
--- OUTSIDE RECORDS SUMMARY | 2025-01-23 08:01 | XMS_ITS | Patient Health Record ---
Author Organization [facility] Address [address] [place] [address] Care Team Providers Care Medical Practice Administrator Name Role Phone Darrell Oglesby Unavailable [phone] Naheed Moreno Unavailable [phone] Allergies No Known Allergies Reason For Referral No Information Social History Tobacco Use: Social History Observation Description Date Details (start date - stop date) Never Smoker NA - NA AUDIT-C (Standard) Question Answer Notes Did you have a drink containing alcohol in the p ast year? No Points 0 Interpretation Negative Tobacco Control (Standard) Question Answer Notes Tobacco use: Nonsmoker Problems Problem Type SNOMED Code ICD Code Onset Dates Problem Status W/U Status Risk Notes Problem [id number] Cellulitis of left upper limb (L03.114) Active confirmed Problem 952422998 Accident caused by other powered hand tools (W29.8XXA) Active confirmed Vital Signs Height 6'4 in 06/01/2024 Weight 265 lbs 06/01/2024 BMI 32.25 06/01/2024 Encounters Encounter Location Date Provider Diagnosis [facility] [address] [place] [address] 05/15/2024 Naheed Moreno Cellulitis of left upper limb L03.114 and Accident caused by other powered hand tools W29.8XXA [facility] [address] [place] [address] 05/16/2024 Darrell Oglesby Cellulitis of left upper limb L03.114 [facility] [address] [place] [address] 05/18/2024 Darrell Oglesby Cellulitis of left upper limb L03.114 [facility] [address] [email or web address] [address] [place] [address] 05/25/2024 Darrell Oglesby Cellulitis of left upper limb L03.114 [facility] [address] [email or web address] [address] [place] [address] 06/01/2024 [facility] Accident caused by other powered hand tools W29.8XXA and Cellulitis of left upper limb L03.114 [facility] [address] [email or web address] [address] [place] [address] 06/08/2024 Darrell Oglesby Accident caused by other powered hand tools W29.8XXA and Cellulitis of left upper limb L03.114 [facility] [address] [email or web address] [address] [place] [address] 06/22/2024 Naheed [facility] Cellulitis of left upper limb L03.114 [facility] [address] [email or web address] [address] [place] [address] 07/13/2024 Darrell Oglesby Cellulitis of left upper limb L03.114 and Accident caused by other powered hand tools W29.8XXA [facility] [address] [email or web address] [address] [place] [address] 08/10/2024 Darrell Oglesby Cellulitis of left upper limb L03.114 Assessments Encounter Date Diagnosis (ICD Code) Assessment Notes Treatment Notes Treatment Clinical Notes Section Notes 05/15/2024 Cellulitis of left upper limb (ICD-10 - L03.114) 05/15/2024 Accident caused by other powered hand tools (ICD-10 - W29.8XXA) 05/16/2024 Cellulitis of left upper limb (ICD-10 - L03.114) 05/18/2024 Cellulitis of left upper limb (ICD-10 - L03.114) 05/25/2024 Cellulitis of left upper limb (ICD-10 - L03.114) 06/01/2024 Cellulitis of left upper limb (ICD-10 - L03.114) 06/01/2024 Accident caused by other powered hand tools (ICD-10 - W29.8XXA) 06/08/2024 Cellulitis of left upper limb (ICD-10 - L03.114) 06/08/2024 Accident caused by other powered hand tools (ICD-10 - W29.8XXA) 06/22/2024 Cellulitis of left upper limb (ICD-10 - L03.114) 07/13/2024 Cellulitis of left upper limb (ICD-10 - L03.114) 07/13/2024 Accident caused by other powered hand tools (ICD-10 - W29.8XXA) 08/10/2024 Cellulitis of left upper limb (ICD-10 - L03.114) 05/25/2024 Other Patient is doing well. He will continue with his IV antibiotics daily and 3 times a week wound VAC changes. He will follow-up in 1 week to reassess his wound. Import medication 06/01/2024 Other Patient continues to do well and will continue with daily IV antibiotics and wound VAC changes 3 times a week. I will have him return in 1 week to reassess his wound. 06/08/2024 Other Patient's wound VAC is clean without signs of infection. We will continue with 3 times a week wound VAC changes. He will follow-up in 2 weeks to reassess his progress. Import medication 06/22/2024 Other Patient's wound continues to heal and is without signs of infection today. We will continue with wound VAC changes 3 times a week. We will see him back in 3 weeks for reevaluation. 07/13/2024 Other Patient is doing well. We will DC the wound VAC. He will do daily nonadherent dressing changes. He will follow-up in 4 weeks to reassess his progress. He will discontinue the dressing changes once the wound is completely healed. Import medication 08/10/2024 Other Patient is doing well after his left elbow I&D and uses his left arm for activities of daily living. He has no complaints. He will follow-up here on an as-needed basis. Import medication Plan Of Treatment No Information Insurance Providers Payer Name Payer Address Payer Phone Subscriber Number Group Number Insured Name Patient Relationship to Insured Coverage Start Date Coverage End Date Medicare [employer] [address] [place] [address] [id number] SANTO PHIPPS Self - patient is the insured Medical (General) History Medical History History ICD Code Type II diabetes High Blood Pressure Sleep apnea CPAP Machine: Yes Do you use the CPAP machine? Yes Bariatric Surgery: Sleeve
--- OUTSIDE RECORDS SUMMARY | 2025-01-23 08:01 | XMS_ITS | Clinical Summary ---
Author Organization [facility] Healthcare Address [address] [place] [address] Care Team Providers Care Health Professor Name Role Phone Harris Alarcon MD Primary Care Provider Allergies Active Allergy Reactions Criticality Noted Date Comments Latrell Inhibitors Cough 09/10/2023 Medications pantoprazole (ProtoNix) 40 MG EC tablet Take 40 mg by mouth in the morning. Take before meals. Do not crush, chew, or split.. Active Blood Glucose Monitoring Suppl (Blood Glucose Monitor System) w/Device kitIndications :Type 2 diabetes mellitus with hyperglycemia, without long-term current use of insulin ([facility]) 1 each Daily 1 kit 4 Active pioglitazone (Actos) 45 MG tabletIndicati ons:Type 2 diabetes mellitus with hyperglycemia, without long-term current use of insulin ([facility]) Take 1 tablet (45 mg) by mouth Daily 90 tablet 3 4 04/28/20 25 Active empagliflozin (Jardiance) 25 MGIndications: Type 2 diabetes mellitus with hyperglycemia, without long-term current use of insulin ([facility]) Take 1 tablet (25 mg) by mouth Daily 90 tablet 3 4 Active primidone (Mysoline) 50 MG tabletIndicati ons:Type 2 diabetes mellitus with hyperglycemia, without long-term current use of insulin ([facility]) Take 2 tablets (100 mg) by mouth at bedtime 180 tablet 3 4 Active citalopram (CeleXA) 40 MG tabletIndicati ons:Essential hypertension, benign Take 1 tablet (40 mg) by mouth Daily 90 tablet 3 4 Active meloxicam (Mobic) 15 MG tabletIndicati ons:Generalize d osteoarthrosis , involving multiple sites Take 1 tablet (15 mg) by mouth Daily 90 tablet 3 4 Active amLODIPine (Norvasc) 5 MG tabletIndicati ons:Essential hypertension, benign Take 1 tablet (5 mg) by mouth Daily 30 tablet 11 4 06/12/20 25 Active Glucose Blood (Blood Glucose Test Strips 333) stripIndicatio ns:Type 2 diabetes mellitus with hyperglycemia, without long-term current use of insulin (HCC) 1 each by In Vitro route Daily 50 strip 5 Active Lancets (Aimsco Ultra Thin Auto Lancet) miscIndication s:Type 2 diabetes mellitus with hyperglycemia, without long-term current use of insulin (HCC) 1 each Daily 50 each 5 Active venlafaxine (Effexor) 100 MG tabletIndicati ons:Generalize d anxiety disorder Take 1 tablet (100 mg) by mouth in the morning and 1 tablet (100 mg) in the evening and 1 tablet (100 mg) before bedtime. 90 tablet 5 5 Active atorvastatin (Lipitor) 40 MG tabletIndicati ons:Dyslipidem ia Take 1 tablet (40 mg) by mouth at bedtime 30 tablet 5 Active losartan (Cozaar) 100 MG tabletIndicati ons:Essential hypertension, benign Take 1 tablet (100 mg) by mouth Daily 30 tablet 5 5 09/23/19 26 Active metFORMIN (Glucophage) 1000 MG tabletIndicati ons:Type 2 diabetes mellitus with hyperglycemia, without long-term current use of insulin ([facility]) Take 1 tablet (1,000 mg) by mouth in the morning and 1 tablet (1,000 mg) before bedtime. for diabetes. 60 tablet 5 11/20/19 26 Active glipiZIDE (Glucotrol) 10 MG tabletIndicati ons:Type 2 diabetes mellitus with hyperglycemia, without long-term current use of insulin ([facility]) Take 1 tablet (10 mg) by mouth in the morning and 1 tablet (10 mg) in the evening. Take before meals. 120 tablet 3 5 Active lamoTRIgine (LaMICtal) 150 MG tabletIndicati ons:Moderate recurrent major depression (HCC) Take 1 tablet (150 mg) by mouth Daily 30 tablet 5 5 Active hydroCHLOROthi azide (HYDRODiuril) 25 MG tabletIndicati ons:Essential hypertension, benign TAKE 1 TABLET BY MOUTH EVERY DAY 30 tablet 3 5 Active cholecalcifero l (Vitamin D3) 25 MCG (1000 UT) tabletIndicati ons:Vitamin D deficiency Take 2 tablets (50 mcg) by mouth Daily 60 tablet 5 4 12/31/19 25 glipiZIDE (Glucotrol) 10 MG tabletIndicati ons:Type 2 diabetes mellitus with hyperglycemia, without long-term current use of insulin (HCC) Take 1 tablet (10 mg) by mouth in the morning and 1 tablet (10 mg) in the evening. Take before meals. 120 tablet 3 4 01/19/20 25 Discontinued lamoTRIgine (LaMICtal) 150 MG tabletIndicati ons:Moderate recurrent major depression (HCC) Take 1 tablet (150 mg) by mouth Daily 30 tablet 5 5 01/19/20 25 Discontinued hydroCHLOROthi azide (HYDRODiuril) 25 MG tabletIndicati ons:Essential hypertension, benign Take 1 tablet (25 mg) by mouth Daily 30 tablet 3 5 01/19/20 25 Discontinued Active Problems Problem Noted Date Diagnosed Date Screening PSA (prostate specific antigen) 2024 Encounter for long-term (current) use of medicat ions 01/01/2024 Essential hypertension, benign 10/16/2023 Assessment & Plan (07/14/2024 3:34 PM EST): BP controlled and monitor PRN. Assessment & Plan (05/26/2024 12:25 PM EDT): BP controlled and monitor PRN. Assessment & Plan (01/01/2024 7:54 AM EDT): BP controlled and monitor PRN. Assessment & Plan (10/16/2023 7:48 AM EDT): BP controlled and monitor PRN. Chronic pain of right knee 10/16/2023 Chronic right shoulder pain 10/16/2023 DDD (degenerative disc disease), cervical 2023 Dyslipidemia 10/16/2023 Tremor, essential 10/16/2023 Assessment & Plan (07/14/2024 3:35 PM EST): Symptoms stable with primidone and continue. Assessment & Plan (10/16/2023 7:49 AM EDT): Symptoms stable with primidone and continue. Generalized anxiety disorder 10/16/2023 Assessment & Plan (07/14/2024 3:34 PM EST): Symptoms controlled with medication and continue. Assessment & Plan (01/01/2024 7:55 AM EDT): Symptoms worse and increase effexor. Continue celexa and lamictal. Assessment & Plan (10/16/2023 7:49 AM EDT): Symptoms worse and increase lamictal. Gastroesophageal reflux disease 10/16/2023 Assessment & Plan (10/16/2023 7:48 AM EDT): Symptoms controlled with protonix and continue. Moderate recurrent major depression 10/16/2023 Assessment & Plan (07/14/2024 3:35 PM EST): Symptoms controlled with medication and continue. Assessment & Plan (01/01/2024 7:55 AM EDT): Symptoms worse and increase effexor. Continue celexa and lamictal. Assessment & Plan (10/16/2023 7:49 AM EDT): Symptoms worse and increase lamictal. Obstructive sleep apnea 10/16/2023 Generalized osteoarthrosis, involving multiple s ites 10/16/2023 Radiculopathy, cervical 10/16/2023 Type 2 diabetes mellitus wit h hyperglycemia, without long-term current use of insulin 10/16/2023 Assessment & Plan (07/14/2024 3:35 PM EST): Reports BS improved and A1C 9.0. Stick to ADA diet and limit carbs. Assessment & Plan (05/26/2024 12:25 PM EDT): BS elevated and monitor. Stick to ADA diet and limit carbs. Repeat A1C prior to next visit. Assessment & Plan (05/14/2024 4:10 PM EDT): BS elevated with infection and monitor. Assessment & Plan (01/01/2024 7:56 AM EDT): BS elevated and resume jardiance. Due for A1C. Stick to ADA diet and limit carbs. Assessment & Plan (10/16/2023 7:49 AM EDT): BS improved and monitor daily. Stick to ADA diet and limit carbs. Vitamin D deficiency 10/16/2023 Primary insomnia 10/16/2023 Class 1 obesity due to exces s calories with serious comorbidity and body mass index (BMI) of 34.0 to 34.9 in adult 10/16/2023 Resolved Problems Problem Noted Date Diagnosed Date Resolved Date Cellulitis of left arm 05/14/202407/14 Assessment & Plan (05/26/2024 12:24 PM EDT): Wound healing and follow with wound care and ortho. Continue antibiotics as prescribed. Assessment & Plan (05/14/2024 4:07 PM EDT): Recent cut and infection. Severe cellulitis involving entire left forearm and spreading to upper arm. Patient at risk for complications and recommend ER. Likely will need IV antibiotics. Morbid obesity due to excess calories 01/01/2024 01/01/2024 Anxiety 10/16/2023 10/16/2023 Encounters Date Type Department Care Team Description 01/17/2025 Refill [facility] [address] [place] [address] Harris Alarcon MD Type 2 diabetes mellitus with hyperglycemia, without long-term current use of insulin (HCC); Moderate recurrent major depression (HCC); Essential hypertension, benign 01/13/2025 Telephone [facility] [address] [place] [address] Harris Alarcon MD 11/19/2024 Refill [facility] [address] [place] [phone] Harris Alarcon MD Type 2 diabetes mellitus with hyperglycemia, without long-term current use of insulin (HCC) from Last 3 Months Immunizations Immunization Administration Dates Next Due Pfizer Purple Cap SARS-CoV-2 Vaccination 021,11/05/2020,10/15/2020 Social History Tobacco Use Types Packs/Day Years Used Date Smoking Tobacco: Never Smokeless Tobacco: Never Tobacco Cessation:Counseling Given: Not Answered Social Connection and Isolation Panel [NHANES] A nswer Date Recorded In a typical week, how many times do you talk on the phone with family, friends, or neighbors? Three times a week 10/09/2023 How often do you get togethe r with friends or relatives? Once a week 10/09/2023 How often do you attend chur ch or uatsdin services? Patient declined 10/09/2023 Do you belong to any clubs o r organizations such as religion groups, unions, fraternal or athletic groups, or [...] medical care, and heating? Somewhat hard 10/09/2023 [facility] - Occupational Stress [...] place to sleep or slept in a custodial (including now)? No 10/09/2023 Sex and Gender Information Value Date Recorded Sex Assigned at Male 06/02/2023 6:12 PM EDT Legal Sex Male 6:43 PM EDT Gender Identity Male 06/02/2023 6:12 PM EDT Sexual Orientation Straight 06/02/2023 6: 12 PM EDT Last Filed Vital Signs Vital Sign Reading Time Taken Comments Blood Pressure 108/50 07/14/2024 3:10 PM EST Pulse 89 07/14/2024 3:10 PM EST Temperature 36.2 C (97.1 F) 07/14/2024 3:10 PM EST Respiratory Rate 20 07/14/2024 3:10 PM EST Oxygen Saturation 99% 07/14/2024 3:10 PM EST Inhaled Oxygen Concentration - - Weight 124 kg (274 lb) 07/14/2024 3:10 PM EST Height 190.5 cm (6' 3 ) 07/14/2024 3:10 PM EST Body Mass Index 34.25 07/14/2024 3:10 PM EST Plan of Treatment Upcoming Encounters Date Type Department Care Team (Late st Contact Info) Description 02/10/2025 7:00 AM EDT Office Visit [facility] [address] [place] [address] Harris Alarcon MD [address] [place] [address] Health Maintenance Due Date Last Done Comments CT Colonography 1959 FIT-DNA 1959 FIT 1959 FOBT 1959 Medicare Annual Wellness (AWV) 1959 Sigmoidoscopy 1959 Pneumococcal Vaccine: 65+ Ye ars (1 of 2 - PCV) 1978 Diabetes: Hemoglobin A1C 01/11/2025 07/13/2024, 01/2024 Diabetes: Urine Protein Screening 01/24/2025 024 Diabetes: Retinopathy Screening 02/11/2025 Influenza Vaccine (Season Ended) 2025 Colonoscopy 03/14/2030 03/14/2020, 03/05, 03/14/2020 Colorectal Cancer Screening 03/14/2030 Insurance [facility] MEDICARE ADVANTAGE Care Teams Health Professor Relationship Specialty Start Date End Date Harris Alarcon MD [address] [place] [address] PCP - General Family Medicine 09/09/23
--- OUTSIDE RECORDS SUMMARY | 2025-01-23 08:01 | XMS_ITS | Encounter Summary ---
Author Organization [facility] Address [address] [place] [address] Care Team Providers Care Manager Machine Name Role Phone Harris Alarcon MD Primary Care Provider [phone] Encounter Details Date Type Department Care Team (Late st Contact Info) Description 01/13/2025 Telephone [facility] [address] [place] [phone] Harris Alarcon MD [address] [place] [address] Social History Tobacco Use Types Packs/Day Years [...] often do you attend chur ch or jainism services? Patient declined 10/09/2023 Do you belong to any clubs o r organizations such as caodaism groups, unions, fraternal or athletic groups, or [...] medical care, and heating? Somewhat hard 10/09/2023 [facility] - Occupational Stress Questionnaire Answer Date Recorded [...] encounter Miscellaneous Notes * Telephone Encounter - Harris Alarcon MD - 01/13/2025 2:13 PM EDT Please fax order. * Telephone Encounter - CARLITOS ULLOA - 01/13/2025 12:06 PM EDT Patient called states he would like to have his A1c and psa tested. Irlanda would like done at [facility] documented in this encounter Plan of Treatment Upcoming Encounters Date Type Department Care Team (Late st Contact Info) Description 02/10/2025 7:00 AM EDT [facility] [address] [place] [address] Harris Alarcon MD [address] [place] [address] Scheduled Orders Name Type Priority Associated Diagnoses Orde r Schedule Microalbumin / creatinine, urine ratio Lab Routine Type 2 diabetes mellitus with hyperglycemia, without long-term current use of insulin (HCC) Expected: 01/13/2025 (Approximate), Expires: 01/13/2026 Hemoglobin A1c Lab Routine Type 2 diabetes mellitus with hyperglycemia, without long-term current use of insulin (HCC) Expected: 01/13/2025 (Approximate), Expires: 01/13/2026 Basic metabolic panel Lab Routine Encounter for long-term (current) use of medications Expected: 01/13/2025 (Approximate), Expires: 01/13/2026 CBC and differential Lab Routine Encounter for long-term (current) use of medications Expected: 01/13/2025 (Approximate), Expires: 01/13/2026 Hepatic function panel Lab Routine Encounter for long-term (current) use of medications Expected: 01/13/2025 (Approximate), Expires: 01/13/2026 Lipid panel Lab Routine Dyslipidemia Expected: 01/13/2025 (Approximate), Expires: 01/13/2026 PSA Lab Routine Screening PSA (prostate specific antigen) Expected: 01/13/2025 (Approximate), Expires: 01/13/2026 TSH Lab Routine Class 1 obesity due to excess calories with serious comorbidity and body mass index (BMI) of 34.0 to 34.9 in adult Expected: 01/13/2025 (Approximate), Expires: 01/13/2026 documented as of this encounter Visit Diagnoses Diagnosis Dyslipidemia- Primary Other and unspecified hyperlipidemia Encounter for long-term (current) use of medications Encounter for long-term (current) use of other medications Class 1 obesity due to excess calories with serious comorbidity and body mass index (BMI) of 34.0 to 34.9 in adult Type 2 diabetes mellitus with hyperglycemia, without long-term current use of insulin (HCC) Screening PSA (prostate specific antigen) Special screening for malignant neoplasm of prostate documented in this encounter Care Teams Manager Machine Relationship Specialty Start Date End Date Harris Alarcon MD [address] [place] [address] PCP - General Family Medicine 09/09/23 documented as of this encounter
--- OUTSIDE RECORDS SUMMARY | 2025-01-23 08:01 | XMS_ITS | Encounter Summary ---
Author Organization [facility] Address [address] [place] [place] [address] Care Team Providers Care Mortgage Field Inspector Name Role Phone Harris Alarcon MD Primary Care Provider [phone] Encounter Details Date Type Department Care Team (Late st Contact Info) Description 05/15/2024 Orders Only [facility] [address] [place] [phone] Harris Alarcon MD [address] [place] [address] Social History Tobacco Use Types Packs/Day Years [...] often do you attend chur ch or yarsanism services? Patient declined 10/09/2023 Do you belong to any clubs o r organizations such as confucianist groups, unions, fraternal or athletic groups, or [...] medical care, and heating? Somewhat hard 10/09/2023 [facility] - Occupational [...] place to sleep or slept in a penitentiary (including now)? No 10/09/2023 Sex and Gender [...] EDT Office Visit [facility] [address] [place] [address] Harris Alarcon MD [address] [place] [address] documented as of this encounter Procedures Procedure Name Priority Date/Time Associated Diagnosis Comments XR FOREARM 2 VIEWS LEFT Routine 05/14/2024 8:48 AM EDT documented in this encounter Results * XR forearm 2 views left (05/14/2024 8:48 AM EDT) Anatomical Region Laterality Modality Upper Extremities, Forearm Left Radio graphic Imaging us Harris Alarcon MD IMG XR PROCEDURES Final Result documented in this encounter Visit Diagnoses Not on filedocumented in this encounter Care Teams Mortgage Field Inspector Relationship Specialty Start Date End Date Harris Alarcon MD [address] [place] [phone] PCP - General Family Medicine 09/09/23 documented as of this encounter
--- OUTSIDE RECORDS SUMMARY | 2025-01-23 08:01 | XMS_ITS | Encounter Summary ---
Author Organization [facility] Address [address] [place] [address] Care Team Providers Care Pickling Operator Name Role Phone Harris Alarcon MD Primary Care Provider [phone] Harris Alarcon MD Primary Care Provider [phone] Encounter Details Date Type Department Care Team (Late Contact Info) Description 08/06/2023 [facility] [address] [place] [address] Harris Alarcon MD [address] [place] [address] Type 2 diabetes mellitus with hyperglycemia, without long-term current use of insulin (HCC) (Primary Dx); Screening PSA (prostate specific antigen) Social History Tobacco Use Types Packs/Day Years Used Date Smoking Tobacco: Never Assessed Sex and Gender Information Value Date Recorded Sex Assigned at Male 06/02/2023 6:12 PM EDT Legal Sex Male 6:43 PM EDT Gender Identity Male 06/02/2023 6:12 PM EDT Sexual Orientation Straight 06/02/2023 6: 12 PM EDT documented as of this encounter Plan of Treatment Upcoming Encounters Date Type Department Care Team (Late Contact Info) Description 02/10/2025 7:00 AM EDT Office Visit [facility] [address] [place] [phone] Harris Alarcon MD [address] [place] [address] documented as of this encounter Visit Diagnoses Diagnosis Type 2 diabetes mellitus with hyperglycemia, without long-term current use of insulin (HCC)- Primary Screening PSA (prostate specific antigen) Special screening for malignant neoplasm of prostate documented in this encounter Care Teams Pickling Operator Relationship Specialty Start Date End Date Harris Alarcon MD PCP - General Family Medicine 02/25/23 09/08/23 Harris Alarcon MD [address] [place] [phone] PCP - General Family Medicine 09/09/23 documented as of this encounter
--- OUTSIDE RECORDS SUMMARY | 2025-01-23 08:01 | XMS_ITS | Clinical Summary ---
Author Organization [facility] Address [id number] [address] [place] [address] Care Team Providers Care Bean Snipper Name Role Phone Harris Alarcon MD Primary Care Provider [phone] Allergies No known active allergies Medications citalopram (CeleXA) 40 mg tablet Take 40 mg by mouth daily. 01/16/2020 Active DULoxetine (CYMBALTA) 60 mg capsule Take 60 mg by mouth. Active glipiZIDE (GLUCOTROL) 10 mg tablet Take 10 mg by mouth 2 (two) times a day. 12/13/2019 Active hydroCHLOROthia zide (HYDRODIURIL) 25 mg tablet Take 25 mg by mouth daily. 12/14/2019 Active lamoTRIgine (LaMICtal) 25 mg tablet Take 50 mg by mouth nightly. 12/13/2019 Active losartan-hydroC HLOROthiazide (HYZAAR) 100-25 mg per tablet Take 1 tablet by mouth. Active meloxicam (MOBIC) 7.5 mg tablet Take 7.5 mg by mouth daily. 01/22/2020 Active metFORMIN (GLUCOPHAGE) 1000 mg tablet Take 1,000 mg by mouth 2 (two) times a day. 12/13/2019 Active pantoprazole (PROTONIX) 20 mg EC tablet Take 20 mg by mouth. Active pioglitazone (ACTOS) 45 mg tablet Take 45 mg by mouth. Active venlafaxine (EFFEXOR) 75 mg tablet Take 75 mg by mouth 2 (two) times a day. 12/13/2019 Active zolpidem (AMBIEN) 10 mg tablet Take 10 mg by mouth nightly. 11/19/2019 Active LAXATIVE PEG 3350 17 gram/dose powder Take 17 g by mouth daily. Dissolve powder in water 12/23/2019 Active Active Problems No known active problems Family History Medical History Relation Name Comments Diabetes Father Diabetes Mother Relation Name Status Comments Father Mother Social History Tobacco Use Types Packs/Day Years Used Date Smoking Tobacco: Former Cigarettes Smokeless Tobacco: Never Childcare Answer Date Recorded Childcare Unknown 01/12/2019 Employment Answer Date Recorded Employment Unknown 01/12/2019 Purpose - Life Answer Date Recorded Purpose and direction in life Unknown Sex and Gender Information Value Date Recorded Sex Assigned at Not on file Legal Sex Male 1:04 PM EDT Gender Identity Not on file Sexual Orientation Not on file Last Filed Vital Signs Vital Sign Reading Time Taken Comments Blood Pressure 155/79 03/14/2020 8:46 AM EDT Pulse 65 03/14/2020 8:46 AM EDT Temperature 37.1 C (98.8 F) 03/14/2020 6:55 AM EDT Respiratory Rate 18 03/14/2020 8:46 AM EDT Oxygen Saturation 100% 03/14/2020 9:10 AM EDT Inhaled Oxygen Concentration - - Weight 139.7 kg (308 lb) 03/14/2020 6:55 AM EDT Height 193 cm (6' 4 ) 03/14/2020 6:55 AM EDT Body Mass Index 37.49 03/14/2020 6:55 AM EDT Plan of Treatment Health Maintenance Due Date Last Done Comments Depression Screening 1971 Tobacco Screening 1971 Adult BMI Screening 1977 DTaP,Tdap and Td Vaccines (1 - Tdap) 1978 Zoster (Shingles) Vaccine (1 of 2) 2009 Fall Risk Screening 2024 Influenza Vaccine 04/05/2025 Medical Devices Not on file Insurance [id number] Care Teams Bean Snipper Relationship Specialty Start Date End Date Harris Alarcon MD PCP - General Family Medicine 01/22/20
[2025-01-23 08:23] LABS: Basophils Percent Auto 0.5 % (0.2-2.0); Eosinophils Absolute Auto 0.2 10^3/uL (0.0-0.7); Eosinophils Percent Auto 3.7 % (0.9-7.0); Hematocrit 43.6 % (42.0-54.0); Hemoglobin 14.8 g/dL (14.0-18.0); Immature Granulocytes Abs Auto 0.02 10^3/uL (0.00-0.03); Immature Granulocytes Pct Auto 0.3 % (0.0-0.5); Lymphocytes Absolute Auto 1.5 10^3/uL (1.2-3.8); Mean Corpuscular HGB Conc 33.9 g/dL (29.9-35.2); Mean Corpuscular Hemoglobin 31.2 pg (25.9-34.0); Mean Platelet Volume 9.6 fL (9.5-13.5); Monocytes Absolute Auto 0.6 10^3/uL (0.3-0.8); Monocytes Percent Auto 9.3 % (1.7-12.0); Neutrophils Absolute Auto 3.6 10^3/uL (1.4-6.5); Neutrophils Percent Auto 61.2 % (43.0-75.0); Platelet Count 202 10^3/uL (150-450); Red Blood Count 4.74 10^6/uL (4.70-6.10); Red Cell Distribution Width 12.4 % (11.0-15.0); White Blood Count 5.9 10^3/uL (4.0-11.0)
[2025-01-23 08:40] LABS: Alanine Aminotransferase 54 U/L (16-63); Albumin Globulin Ratio 1.2; Albumin Level 3.8 g/dL (3.4-5.0); Alkaline Phosphatase 83 U/L (46-116); Anion Gap 14.1; Aspartate Amino Transferase 26 U/L (15-37); BUN Creatinine Ratio 29.5; Bilirubin Direct 0.2 mg/dL (0.0-0.2); Bilirubin Total 0.7 mg/dL (0.2-1.0); Carbon Dioxide 27.2 mmol/L (21.0-32.0); Chloride 102 mmol/L (98-107); Chol HDL Ratio 2.3; Cholesterol 124 mg/dL (<=200); Estimated GFR (African America >60 (>=60 mL/min/1.73m^2); Estimated GFR (Non-African Ame 60 (>=60 mL/min/1.73m^2); Globulin 3.3 g/dL; Glucose 224 mg/dL (74-106); HDL Cholesterol 53 mg/dL (40-60); LDL Cholesterol Calculated 53.6 mg/dL; Potassium 4.3 mmol/L (3.5-5.1); Sodium 139 mmol/L (136-145); Thyroid Stimulating Hormone 0.906 uIU/mL (0.358-3.740); Total Protein 7.1 g/dL (6.4-8.2); Triglycerides 87 mg/dL (<=150); VLDL CHOLESTEROL 17.4 mg/dL
[2025-01-23 08:56] LABS: Estimated Average Glucose 283 mg/dL; Glycohemoglobin A1C 11.5 % (4.5-6.2)
[2025-01-23 10:06] LABS: Creatinine Urine Random 70.12 mg/dL (20.00-300.00); Microalbumin Urine Random <1.3 mg/dL (<=30.0)
== END 2025-01-23 07:59 | disposition home or self-care (01) ==
LOC: LAB 07:59
PROVIDERS: PCP Family Medicine; Visit Provider Family Medicine
DX: E78.5 Hyperlipidemia, unspecified (principal); E11.65 Type 2 diabetes mellitus with hyperglycemia; Z79.899 Other long term (current) drug therapy; Z12.5 Encounter for screening for malignant neoplasm of prostate; E66.811 Obesity, class 1; E66.09 Other obesity due to excess calories; Z68.34 Body mass index [BMI] 34.0-34.9, adult
CPT/HCPCS: 36415; 80048; 80061; 80076; 82043; 82570; 83036; 84443; 85025; G0103